=== PATIENT | female | born 1940 | race Caucasian/White ===

== ENCOUNTER 2017-02-22 10:13 | Day surgery (SDC) | payer BC ==
[~2017-02-22 10:13] MED LIST: Lactated Ringers 1,000 ML IV SCH; Propofol 200 MG/20 ML SDV ONE
--- NOTE | 2017-02-22 10:40 | PCM.PREANE ---
Preanesthetic Assessment - Anesthesia/Transfusion/Family Hx Anesthesia History: Prior Anesthesia Without Reaction Family History of Anesthesia Reaction: No Transfusion History: Prior Transfusion Without Reaction Intubation History: Unknown - Review of Systems General: No Symptoms Pulmonary: No Symptoms Cardiovascular: No Symptoms Gastrointestinal: Abdominal pain Neurological: No Symptoms Other: Reports: None - Physical Assessment O2 Sat by Pulse Oximetry: 95 Respiratory Rate: 16 Vital Signs: Last Vital Signs Temp 36.3 C 02/22/17 10:29 Pulse 64 02/22/17 10:29 Resp 16 02/22/17 10:29 BP 165/81 H 02/22/17 10:29 Pulse Ox 95 02/22/17 10:29 Height: 1.6 m Weight: 78.471 kg ASA Class: 3 Mental Status: Alert & Oriented x3 Airway Class: Mallampati = 2 Dentition: Reports: Dentures (upper and lower) Thyro-Mental Finger Breadths: 3 Mouth Opening Finger Breadths: 3 ROM/Head Extension: Limited/Partial Lungs: Clear to auscultation, Normal respiratory effort Cardiovascular: Regular Rate, Regular Rhythm - Allergies Allergies/Adverse Reactions: Allergies Allergy/AdvReac Type Severity Reaction Status Date / Time lisinopril Allergy Cough Verified 02/20/17 13:13 nitrofurantoin Allergy Rash Verified 02/20/17 13:13 [From Macrobid] pollen extracts Allergy watery eyes Verified 02/20/17 13:13 - Blood Blood Available: No - Anesthesia Plan Pre-Op Medication Ordered: None - Acknowledgements Anesthesia Type Planned: MAC Pt an Appropriate Candidate for the Planned Anesthesia: Yes Alternatives and Risks of Anesthesia Discussed w Pt/Guardian: Yes Pt/Guardian Understands and Agrees with Anesthesia Plan: Yes PreAnesthesia Questionnaire HEENT History: Reports: Other (See Below) Other HEENT History: wears glasses, has top and bottom denture Cardiovascular History: Reports: High Cholesterol, Hypertension Respiratory History: Reports: Other (See Below) Other Respiratory History: H&P states COPD, pt denies Gastrointestinal History: Reports: Gastritis, GERD, Hiatal Hernia Genitourinary History: Reports: None Musculoskeletal History: Reports: Fracture, Osteoarthritis Other Musculoskeletal History: hx fx leg and ankle Endocrine/Metabolic History: Reports: Diabetes, Type II, Obesity/BMI 30+ Hematologic History: Reports: Blood Transfusion(s) Oncologic (Cancer) History: Reports: Breast - Past Surgical History Head Surgeries/Procedures: Reports: None HEENT Surgical History: Reports: Cataract Surgery GI Surgical History: Reports: Appendectomy, Colonoscopy, EGD Female Surgical History: Reports: Breast Biopsy, Hysterectomy, Other (See Below) Other Female Surgeries/Procedures: bo mastectomy Musculoskeletal Surgical History: Reports: Knee Replacement Other Musculoskeletal Surgeries/Procedures:: hx bo knee replacement and bo knee replacement revision - SUBSTANCE USE Smoking Status *Q: Former Smoker Tobacco Use Within Last Twelve Months: No Recreational Drug Use History: No - HOME MEDS Home Medications: Home Meds Aspirin [[place] Aspirin] 81 mg PO DAILY 02/20/17 [History] Diltiazem HCl [Dilt-Xr] 240 mg PO DAILY 02/20/17 [History] Hydrochlorothiazide 25 mg PO DAILY 02/20/17 [History] Hydrocodone/Acetaminophen [Hydrocodon-Acetaminophn 10-325] 1 tab PO ASDIRECTED PRN 02/20/17 [History] Liraglutide [Victoza] 1.2 mg SUBCUT DAILY 02/20/17 [History] Losartan/Hydrochlorothiazide [Losartan-HCTZ 100-25 MG] 1 tab PO DAILY 02/20/17 [ History] Simvastatin [Zocor] 0.5 tab PO DAILY 02/20/17 [History] - CURRENT (IN HOUSE) MEDS Current Meds: Current Medications Lactated Ringer's (Ringers, Lactated) 1,000 mls @ 125 mls/hr IV ASDIRECTED [facility] Last Admin: 02/22/17 10:29 Dose: 125 mls/hr Discontinued Medications Propofol (Diprivan 20 Ml) Confirm Administered Dose 200 mg .ROUTE .STK-MED ONE Stop: 02/22/17 06:54
--- NOTE | 2017-02-22 11:22 | PCM.OPNOTE ---
- General Post-Op/Procedure Note Date of Surgery/Procedure: 02/22/17 Operative Procedure(s): Esophagogastroduodenoscopy with biopsy Pre Op Diagnosis: Epigastric pain with progressive heartburn Post-Op Diagnosis: Duodenitis. Acute gastritis. Hiatal hernia with mild esophagitis. Anesthesia Technique: MAC (ASA III) Primary Surgeon: Mariano Perry Condition: Good Free Text/Narrative:: Dictation [id number]
[2017-02-22] MEDS ORDERED: Lactated Ringers 1,000 ML IV SCH (11:30)
[2017-02-22 12:25] VITALS: BP 167/77
--- NOTE | 2017-02-22 17:54 | OR ---
SURGEON: Mariano Perry M.D. DATE OF PROCEDURE: 02/22/2017 OPERATION PERFORMED: Esophagogastroduodenoscopy with biopsy. ANESTHESIA: MAC. ASA CLASSIFICATION: III. PREOPERATIVE DIAGNOSIS: Epigastric pain with progressive heartburn. POSTOPERATIVE DIAGNOSES: [id number] gastritis and hiatal hernia with mild esophagitis. DESCRIPTION OF PROCEDURE: The patient was taken to the endoscopy room and positioned on the endoscopy table in the supine position. Time-out was called for appropriate identification of the patient and procedure. Monitored anesthesia care was provided. The bite block was placed between the patient's teeth. The gastroscope was inserted through the mouth and advanced without difficulty through the esophagus and stomach into the duodenum where examination was carried out in a retrograde fashion. The duodenum shows mild duodenitis. Duodenal biopsies were obtained. The gastroscope was withdrawn into the stomach, which does show a much more acute gastritis. Antral biopsies were obtained to look for the presence of Helicobacter pylori. The gastroscope was retroflexed to visualize the proximal stomach. No ulcerations or tumors were noted. The patient does have a hiatal hernia that can be seen both from above and below. The gastroscope was then straightened, the stomach aspirated, and the scope slowly withdrawn. The GE junction was well defined shows minimal inflammatory changes. The patient does have a small hiatal hernia. The esophagus itself demonstrates good contractility. No mid or proximal lesions were identified. The vocal cords were visualized as the scope was withdrawn and noted to move symmetrically. The gastroscope was then removed with the patient having tolerated the procedure well. She was taken to recovery room in stable condition. KISHOR / LAYTON /[id number]
== END 2017-02-22 12:23 | disposition home or self-care (01) ==
LOC: MW.SDS 10:13
PROVIDERS: ATTEND Surgery
DX: K29.50 Unspecified chronic gastritis without bleeding (principal); K44.9 Diaphragmatic hernia without obstruction or gangrene; I65.29 Occlusion and stenosis of unspecified carotid artery; J44.9 Chronic obstructive pulmonary disease, unspecified; I10 Essential (primary) hypertension; E78.00 Pure hypercholesterolemia, unspecified; E66.9 Obesity, unspecified; M19.90 Unspecified osteoarthritis, unspecified site; E11.9 Type 2 diabetes mellitus without complications; K21.9 Gastro-esophageal reflux disease without esophagitis; Z85.3 Personal history of malignant neoplasm of breast; Z87.891 Personal history of nicotine dependence; Z88.1 Allergy status to other antibiotic agents; Z88.8 Allergy status to other drugs, medicaments and biological substances; Z91.048 Other nonmedicinal substance allergy status; Z79.82 Long term (current) use of aspirin; Z79.4 Long term (current) use of insulin; Z79.899 Other long term (current) drug therapy; Z98.1 Arthrodesis status; Z98.49 Cataract extraction status, unspecified eye; Z96.653 Presence of artificial knee joint, bilateral; Z90.13 Acquired absence of bilateral breasts and nipples; Z90.49 Acquired absence of other specified parts of digestive tract; Z90.710 Acquired absence of both cervix and uterus; Z90.79 Acquired absence of other genital organ(s); Z98.890 Other specified postprocedural states; Z68.30 Body mass index [BMI] 30.0-30.9, adult
CPT/HCPCS: 43239; 82962; 88305; 88312; J7120; 00740; J2704

== ENCOUNTER 2019-03-20 09:25 | Day surgery (SDC) | payer BC, MEDICARE ==
[~2019-03-20 09:25] MED LIST changes: -Propofol 200 MG/20 ML SDV ONE
--- NOTE | 2019-03-20 10:20 | PCM.PREANE ---
Preanesthetic Assessment - Anesthesia/Transfusion/Family Hx Anesthesia History: Prior Anesthesia Without Reaction Family History of Anesthesia Reaction: No Transfusion History: Prior Transfusion Without Reaction Intubation History: Unknown - Review of Systems General: No Symptoms Pulmonary: No Symptoms Cardiovascular: No Symptoms Neurological: No Symptoms Other: Reports: None - Physical Assessment NPO Status Date: 03/19/19 O2 Sat by Pulse Oximetry: 96 Respiratory Rate: 16 Vital Signs: Last Vital Signs Temp 97.5 F 03/20/19 09:45 Pulse 56 L 03/20/19 09:45 Resp 16 03/20/19 09:45 BP 154/67 H 03/20/19 09:45 Pulse Ox 96 03/20/19 09:45 Height: 5 ft 3 in Weight: 76.204 kg ASA Class: 3 Mental Status: Alert & Oriented x3 Airway Class: Mallampati = 2 Dentition: Reports: Edentulous ROM/Head Extension: Full Lungs: Clear to Auscultation, Normal Respiratory Effort Cardiovascular: Regular Rate, Regular Rhythm - Allergies Allergies/Adverse Reactions: Allergies Allergy/AdvReac Type Severity Reaction Status Date / Time lisinopril Allergy Cough Verified 03/17/19 15:29 nitrofurantoin Allergy Rash Verified 03/17/19 15:29 [From Macrobid] pollen extracts Allergy watery eyes Verified 03/17/19 15:29 - Blood Blood Available: No - Anesthesia Plan Pre-Op Medication Ordered: None - Acknowledgements Anesthesia Type Planned: General Anesthesia Pt an Appropriate Candidate for the Planned Anesthesia: Yes Alternatives and Risks of Anesthesia Discussed w Pt/Guardian: Yes Pt/Guardian Understands and Agrees with Anesthesia Plan: Yes Additional Comments: anes prob list: copd, gerd, htn, dm2 PLAN: tiva PreAnesthesia Questionnaire HEENT History: Reports: Cataract Other HEENT History: wears glasses, has upper and lower dentures Cardiovascular History: Reports: Arrhythmia, High Cholesterol, Hypertension, Other (See Below) Other Cardiovascular History: hx of PAC's per chart, 50% stenosis in left Carotid Artery per chart Respiratory History: Reports: COPD Other Respiratory History: was told she had COPD because she smoked in the past - no symptoms and no medication Gastrointestinal History: Reports: GERD, Hiatal Hernia Genitourinary History: Reports: None Musculoskeletal History: Reports: Osteoarthritis Other Musculoskeletal History: hx fx leg and ankle Neurological History: Reports: Concussion Endocrine/Metabolic History: Reports: Diabetes, Type II, Hypothyroidism, Vitamin D Deficiency Hematologic History: Reports: Blood Transfusion(s) Oncologic (Cancer) History: Reports: Breast Dermatologic History: Reports: Other (See Below) 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 - Past Surgical History Head Surgeries/Procedures: Reports: None HEENT Surgical History: Reports: Cataract Surgery, Laser Surgery Other HEENT Surgeries/Procedures: had laser done for "pressure in eyes" GI Surgical History: Reports: Appendectomy, Colon, Colonoscopy, EGD Other GI Surgeries/Procedures: hx of partial Colectomy because of ruptured appendix as a child Female Surgical History: Reports: Hysterectomy, Mastectomy, Salpingo- Oophorectomy Other Female Surgeries/Procedures: right Modified Radical mastectomy, left Simple Mastectomy Musculoskeletal Surgical History: Reports: Knee Replacement, ORIF Other Musculoskeletal Surgeries/Procedures:: Bilateral TKA (revision of right knee x2), ORIF left ankle - has screws - SUBSTANCE USE Smoking Status *Q: Former Smoker Tobacco Use Within Last Twelve Months: No Recreational Drug Use History: No - HOME MEDS Home Medications: Home Meds Aspirin [[place] Aspirin EC] 81 mg PO DAILY 02/20/17 [History] Diltiazem HCl [Dilt-Xr] 240 mg PO DAILY 02/20/17 [History] Liraglutide [Victoza] 1.2 mg SUBCUT DAILY 02/20/17 [History] Losartan/Hydrochlorothiazide [Losartan-HCTZ 100-25 MG] 1 tab PO DAILY 02/20/17 [ History] Simvastatin [Zocor] 40 mg PO BEDTIME 02/20/17 [History] Clobetasol [Clobetasol Propionate 0.05% Cream] 1 applic TOP ASDIRECTED 03/17/19 [History] Doxazosin Mesylate [Cardura] 2 mg PO BEDTIME 03/17/19 [History] Ergocalciferol (Vitamin D2) [Drisdol] 50,000 unit PO WEEKLY 03/17/19 [History] Levothyroxine Sodium 88 mcg PO QAM 03/17/19 [History] Potassium Chloride 10 meq PO DAILY 03/17/19 [History] metFORMIN HCl [Metformin HCl ER] 500 mg PO ACDINNER 03/17/19 [History] - CURRENT (IN HOUSE) MEDS Current Meds: Current Medications Lactated Ringer's (Ringers, Lactated) 1,000 mls @ 125 mls/hr IV ASDIRECTED [facility] Last Admin: 03/20/19 09:55 Dose: 125 mls/hr
[2019-03-20] MEDS ORDERED: Propofol 200 MG/20 ML SDV ONE (10:25)
[2019-03-20] MEDS ORDERED: Lactated Ringers 1,000 ML IV SCH (11:15)
--- NOTE | 2019-03-20 11:17 | PCM.OPNOTE ---
- General Post-Op/Procedure Note Date of Surgery/Procedure: 03/20/19 Operative Procedure(s): Esophagogastroduodenoscopy with gastric and esophageal biopsies Pre Op Diagnosis: Abdominal pain with progressive gastroesophageal reflux disease. Nausea and vomiting. Post-Op Diagnosis: Acute and chronic gastritis. Esophagitis. Anesthesia Technique: MAC (ASA III) Primary Surgeon: Mariano Perry Condition: Good Free Text/Narrative:: DICTATION [id number] CPT CODE 44210
--- NOTE | 2019-03-20 11:34 | PCM.POSTAN ---
POST ANESTHESIA ASSESSMENT - MENTAL STATUS Mental Status: Alert, Oriented - RESPIRATORY Respiratory Status: Respiratory Rate WNL, Airway Patent, O2 Saturation Stable - CARDIOVASCULAR CV Status: Pulse Rate WNL, Blood Pressure Stable - GASTROINTESTINAL GI Status: No Symptoms - POST OP HYDRATION Hydration Status: Adequate & Stable
--- NOTE | 2019-03-20 11:43 | PCM48HPAN ---
Post Anesthesia Note - EVALUATION WITHIN 48HRS OF ANESTHETIC Vital Signs in Normal Range: Yes Patient Participated in Evaluation: Yes Respiratory Function Stable: Yes Airway Patent: Yes Cardiovascular Function Stable: Yes Hydration Status Stable: Yes Pain Control Satisfactory: Yes Nausea and Vomiting Control Satisfactory: Yes Mental Status Recovered: Yes Resp Rate: 17
[2019-03-20 11:47] VITALS: BP 188/79
--- NOTE | 2019-03-20 11:56 | OR ---
SURGEON: Mariano Perry M.D. DATE OF PROCEDURE: 03/20/2019 OPERATION PERFORMED: Esophagogastroduodenoscopy with biopsy. PRIMARY SURGEON: Mariano Perry M.D. ANESTHESIA: MAC. ASA CLASSIFICATION: III. PREOPERATIVE DIAGNOSES: 1. Epigastric pain. 2. Persistent nausea and vomiting. 3. Chronic gastroesophageal reflux disease that is progressive. POSTOPERATIVE DIAGNOSES: 1. Acute gastritis. 2. Distal esophagitis. DESCRIPTION OF PROCEDURE: The patient was taken to the endoscopy room and positioned on the endoscopy table in the supine position. Time-out was called for appropriate identification of the patient and procedure. Monitored anesthesia care was provided. The bite block was placed between the patient's teeth. The gastroscope was inserted through the bite block and advanced without difficulty through the esophagus and stomach into the duodenum where examination was now carried out in a retrograde fashion. The duodenum shows no acute inflammatory changes or ulcerations. The stomach does show [id number] acute gastritis. Antral biopsies were obtained to look for the presence of Helicobacter pylori. The gastroscope was retroflexed to visualize the proximal stomach. No proximal lesions were identified. No polyps were encountered. The gastroscope was then straightened, the stomach aspirated, and the scope slowly removed. The patient does have a distal esophagitis and separate biopsies of the esophagus were obtained. The remainder of the mid and proximal esophagus showed no tumors, polyps, or inflammatory changes. The vocal cords were briefly visualized as the scope was withdrawn and noted to move symmetrically. The gastroscope was then removed with the patient having tolerated the procedure well. She was taken to recovery room in stable condition. KISHOR / LAYTON /[id number]
== END 2019-03-20 12:01 | disposition home or self-care (01) ==
LOC: MW.SDS 09:25
PROVIDERS: ATTEND Surgery
DX: K29.50 Unspecified chronic gastritis without bleeding (principal); K21.0 Gastro-esophageal reflux disease with esophagitis; I10 Essential (primary) hypertension; I65.22 Occlusion and stenosis of left carotid artery; E11.9 Type 2 diabetes mellitus without complications; E78.00 Pure hypercholesterolemia, unspecified; E03.9 Hypothyroidism, unspecified; J44.9 Chronic obstructive pulmonary disease, unspecified; M47.812 Spondylosis without myelopathy or radiculopathy, cervical region; Z88.1 Allergy status to other antibiotic agents; Z88.8 Allergy status to other drugs, medicaments and biological substances; Z91.048 Other nonmedicinal substance allergy status; Z87.891 Personal history of nicotine dependence; Z79.82 Long term (current) use of aspirin; Z79.84 Long term (current) use of oral hypoglycemic drugs; Z79.899 Other long term (current) drug therapy
CPT/HCPCS: 82962; J2704; J7120

== ENCOUNTER 2020-05-17 20:51 | Emergency (ER) | payer BC ==
--- NOTE | 2020-05-17 20:55 | EDM.PDOC ---
ED HPI GENERAL MEDICAL PROBLEM - General Chief Complaint: Back Pain or Injury Stated Complaint: sciatica pain Time Seen by Provider: 05/17/20 20:53 Source of Information: Reports: Patient - History of Present Illness INITIAL COMMENTS - FREE TEXT/NARRATIVE: 80-year-old female with history of sciatica presents with low back pain for 5 days. She was lifting heavy furniture and started having pain to her low back 5 days ago. Pain is described as sharp, moderate, intermittent, localized to the left lumbar paraspinal region, and radiates to the left lower extremity. Exacerbated with movement and palpation. She tried taking ibuprofen 400 mg with no relief. Patient denies fever, chills, headache, chest pain, shortness of breath, abdominal pain, focal numbness or weakness, urinary or fecal incontin ence. ROS: A 10-point review of systems, other than pertinent positives and negatives as stated per HPI, is otherwise negative Past medical history: No additional pertinent history Past Surgical history: No additional pertinent history Social history: No additional pertinent history Family history: No additional pertinent history PHYSICAL EXAM General: AOx4, GCS = 15, moderate distress HEENT: dry mucous membrane Neck: supple, no meningismus, no Kernig or Brudzinski Cardiac: S1S2 RRR, symmetrical bounding DP pulse +2 bilaterally. Respiratory: CTAB, no crackles or rales, no wheezing Abdomen: Soft, nontender, no rebound or guarding, nondistended, no pulsatile mass. Back: nontender to C/T/L spine. reproducible ttp/spasm to left lumbar paraspinal muscles. left gluteus ttp. Musculoskeletal: NVI distally, no deformity. Positive straight leg raise. No tenderness to posterior calf or thigh bilaterally. Neuro: No focal deficits, CN 2 - 12 WNL. Onset: Today lower back Pain Score (Numeric/FACES): 10 - Related Data Allergies Allergy/AdvReac Type Severity Reaction Status Date / Time lisinopril Allergy Cough Verified 05/17/20 21:10 nitrofurantoin Allergy Rash Verified 05/17/20 21:10 [From Macrobid] pollen extracts Allergy watery eyes Verified 05/17/20 21:10 Home Meds: Home Meds Aspirin [[place] Aspirin EC] 81 mg PO DAILY 02/20/17 [History] Liraglutide [Victoza] 1.2 mg SUBCUT DAILY 02/20/17 [History] Losartan/Hydrochlorothiazide [Losartan-HCTZ 100-25 MG] 1 tab PO DAILY 02/20/17 [History] Simvastatin [Zocor] 40 mg PO BEDTIME 02/20/17 [History] dilTIAZem HCL [Dilt-Xr] 240 mg PO DAILY 02/20/17 [History] Clobetasol [Clobetasol Propionate 0.05% Cream] 1 applic TOP ASDIRECTED 03/17/19 [History] Doxazosin Mesylate [Cardura] 2 mg PO BEDTIME 03/17/19 [History] Ergocalciferol (Vitamin D2) [Drisdol] 50,000 unit PO WEEKLY 03/17/19 [History] Levothyroxine Sodium 88 mcg PO QAM 03/17/19 [History] Potassium Chloride 10 meq PO DAILY 03/17/19 [History] metFORMIN HCl [Metformin HCl ER] 500 mg PO ACDINNER 03/17/19 [History] Chlorzoxazone 500 mg PO BID #10 tablet 05/17/20 [Rx] Naproxen [EC-Naproxen] 500 mg PO BID #10 tablet.dr 05/17/20 [Rx] Past Medical History HEENT History: Reports: Cataract Other HEENT History: wears glasses, has upper and lower dentures Cardiovascular History: Reports: Arrhythmia, High Cholesterol, Hypertension, Other (See Below) Other Cardiovascular History: hx of PAC's per chart, 50% stenosis in left Carotid Artery per chart Respiratory History: Reports: COPD Other Respiratory History: was told she had COPD because she smoked in the past- no symptoms and no medication Gastrointestinal History: Reports: GERD, Hiatal Hernia Genitourinary History: Reports: None Musculoskeletal History: Reports: Osteoarthritis Other Musculoskeletal History: hx fx leg and ankle Neurological History: Reports: Concussion Endocrine/Metabolic History: Reports: Diabetes, Type II, Hypothyroidism, Vitamin D Deficiency Hematologic History: Reports: Blood Transfusion(s) Oncologic (Cancer) History: Reports: Breast Dermatologic History: Reports: Other (See Below) 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 - Past Surgical History Head Surgeries/Procedures: Reports: None HEENT Surgical History: Reports: Cataract Surgery, Laser Surgery Other HEENT Surgeries/Procedures: had laser done for "pressure in eyes" GI Surgical History: Reports: Appendectomy, Colon, Colonoscopy, EGD Other GI Surgeries/Procedures: hx of partial Colectomy because of ruptured appendix as a child Female Surgical History: Reports: Hysterectomy, Mastectomy, Salpingo-Oophorectomy Other Female Surgeries/Procedures: right Modified Radical mastectomy, left Simple Mastectomy Musculoskeletal Surgical History: Reports: Knee Replacement, ORIF Other Musculoskeletal Surgeries/Procedures:: Bilateral TKA (revision of right knee x2), ORIF left ankle - has screws ED ROS GENERAL - Review of Systems Review Of Systems: Comprehensive ROS is negative, except as noted in HPI. ED EXAM, GENERAL - Physical Exam Exam: See Below (see dictation) Course - Vital Signs Last Recorded V/S: Last Vital Signs Temp 99.3 F 05/17/20 21:11 Pulse 80 05/17/20 21:11 Resp 18 05/17/20 21:11 BP 194/73 H 05/17/20 21:11 Pulse Ox 95 05/17/20 21:11 - Orders/Labs/Meds Orders: Active Orders 24 hr Category Date Time Status Ketorolac [Toradol] Med 05/17/20 21:33 Once 30 mg IM ONETIME ONE - Re-Assessments/Exams Free Text/Narrative Re-Assessment/Exam: 05/17/20 21:38 After IM toradol treatments, she improved clinically and is currently stable for discharge. I performed a repeat exam and did not appreciate new abnormal findings. Patient exhibits normal vital signs. I advised the patient to return to the ER for reevaluation if symptoms worsened, including fever, worsening pain, or any other worrisome symptoms. I instructed the patient to follow up with their PCP within 2-3 days. MEDICAL DECISION MAKING: I reviewed the patients past medical records, lab and radiographic findings. I discussed the case with the patient. My differential diagnosis included: Low back strain, sciatica, piriformis syndrome. patient's back pain is suggestive of musculoskeletal strain. There are no complaints of urinary or fecal incontinence, focal numbness or weakness. There is no evidence of fever, IV drug use, recent back surgery, or immunocompromised state. I do not suspect caude equine syndrome or cord compression which would warrant further imaging. Departure - Departure Time of Disposition: 21:40 Disposition: Home, Self-Care 01 Condition: Good Clinical Impression: Sciatica, Low back strain - Discharge Information *PRESCRIPTION DRUG MONITORING PROGRAM REVIEWED*: Not Applicable *COPY OF PRESCRIPTION DRUG MONITORING REPORT IN PATIENT BLANCO: Not Applicable Prescriptions: Chlorzoxazone 500 mg PO BID #10 tablet Naproxen [EC-Naproxen] 500 mg PO BID #10 tablet. Instructions: Lumbosacral Strain, Sciatica, Back Injury Prevention, [id number] Referrals: Dejan Duff MD [Primary Care Provider] - 3 Days Forms: ED Department Discharge Additional Instructions: The need for follow-up, as well as the timing and circumstances, are variable depending upon the specifics of your emergency department visit. If you don't have a primary care physician on staff, we will provide you with a referral. We always advise you to contact your personal physician following an emergency department visit to inform them of the circumstance of the visit and for follow-up with them and/or the need for any referrals to a consulting specialist. The emergency department will also refer you to a specialist when appropriate. This referral assures that you have the opportunity for follow-up care with a specialist. All of these measure are taken in an effort to provide you with optimal care, which includes your follow-up. Under all circumstances we always encourage you to contact your private physician who remains a resource for coordinating your care. When calling for follow-up care, please make the office aware that this follow-up is from your recent emergency room visit. If for any reason you are refused follow-up, please contact the [facility] Emergency Department at and asked to speak to the emergency department charge nurse. Sepsis Event Note (ED) - Focused Exam Vital Signs: Vital Signs Temp Pulse Resp BP Pulse Ox 08/25/20 21:11 99.3 F 80 18 194/73 H 95 - My Orders Last 24 Hours: My Active Orders 05/17/20 21:33 Ketorolac [Toradol] 30 mg IM ONETIME ONE - Assessment/Plan Last 24 Hours: My Active Orders 05/17/20 21:33 Ketorolac [Toradol] 30 mg IM ONETIME ONE
[2020-05-17] MEDS ORDERED: Ketorolac 30 MG/ML SDV IM ONE (21:33)
[2020-05-17 22:37] VITALS: BP 158/64; PULSE 83
== END 2020-05-17 22:15 | disposition home or self-care (01) ==
LOC: MW.ED 20:51
DX: S39.012A Strain of muscle, fascia and tendon of lower back, initial encounter (principal); M54.32 Sciatica, left side; I10 Essential (primary) hypertension; J44.9 Chronic obstructive pulmonary disease, unspecified; M19.90 Unspecified osteoarthritis, unspecified site; E11.9 Type 2 diabetes mellitus without complications; E03.9 Hypothyroidism, unspecified; Z88.8 Allergy status to other drugs, medicaments and biological substances; Z91.048 Other nonmedicinal substance allergy status; Z79.82 Long term (current) use of aspirin; Z79.899 Other long term (current) drug therapy; X50.0XXA Overexertion from strenuous movement or load, initial encounter
CPT/HCPCS: 96372; 99283; J1885; 99282

== ENCOUNTER 2020-05-20 11:57 | Emergency (ER) | payer BC ==
--- NOTE | 2020-05-20 12:43 | EDM.PDOC ---
ED [facility] GENERAL MEDICAL PROBLEM - General Chief Complaint: General Stated Complaint: OD Time Seen by Provider: 05/20/20 12:08 - History of Present Illness INITIAL COMMENTS - FREE TEXT/NARRATIVE: HISTORY AND PHYSICAL: History of present illness: This 80-year-old female with a past medical history of hypertension, chronic pain of the left lower extremity, and opioid dependence presents with altered mental status. She was found slumped over at home after using home narcotics. Patient states that she does not remember taking extra. She was quite obtunded and may have accidentally taken additional medications but does not think that is likely. She did not try and harm herself. She complains of chronic pain in her back and left leg. She reports that these are secondary to previous traumatic injuries. Review of systems: A 10-point review of systems, other than pertinent positives and negatives as stated per HPI, is otherwise negative. Past medical history: As per history of present illness and as reviewed below otherwise noncontributory. Surgical history: As per history of present illness and as reviewed below otherwise noncontributory. Social history: No reported history of drug or alcohol abuse. Family history: As per history of present illness and as reviewed below otherwise noncontributory. Physical exam: VITAL SIGNS: Reviewed. GENERAL: Intermittently agitated and then somnolent. The pulse oximetry is reading low in the 80s. Unclear if this is secondary to the patient moving around and poor sensing or if this is actual hypoxemia. HEAD: No signs of head trauma. EYES: Pupils are equal. Extraocular motions intact. EARS: Hearing grossly intact. MOUTH: Oropharynx is normal. NECK: No adenopathy, no JVD. CHEST: Chest with clear breath sounds bilaterally. No wheezes, rales, or rhonchi. CARDIAC: Regular rate and rhythm. Normal S1 and S2, without murmurs, gallops, or rubs. VASCULAR: Peripheral pulses normal and equal in all extremities. ABDOMEN: Soft, without detectable tenderness. No sign of distention. No rebound or guarding, and no masses palpated. MUSCULOSKELETAL: Good range of motion of all major joints. Extremities without clubbing, cyanosis or edema. NEUROLOGIC EXAM: Alert and oriented x 3. No focal sensory or motor deficits. Speech normal. Follows commands. PSYCHIATRIC: Mood normal. SKIN: No rash or lesions. Initial Differential Diagnosis & Plan: The patient has altered mental status and I considered the following entities in the differential diagnosis: hypoglycemia, electrolyte imbalance, head trauma, intracranial bleed or mass, meningitis sepsis, transient ischemic attack or stroke, toxidrome/intoxication/medication effect, seizure or postictal state, hepatic encephalopathy, acid/base disturbance, hypercapnia. We will evaluate the patient for underlying metabolic problems. No evidence of meningitis or sepsis. No unilateral symptoms to suggest TIA or stroke. Suspect this is likely a toxidrome. Definitive disposition and diagnosis as appropriate pending reevaluation and review of above. back Pain Score (Numeric/FACES): 7 - Related Data Allergies Allergy/AdvReac Type Severity Reaction Status Date / Time lisinopril Allergy Cough Verified 05/20/20 12:46 nitrofurantoin Allergy Rash Verified 05/20/20 12:46 [From Macrobid] pollen extracts Allergy watery eyes Verified 05/20/20 12:46 Home Meds: Home Meds Aspirin [Iota Aspirin EC] 81 mg PO DAILY 02/20/17 [History] Liraglutide [Victoza] 1.2 mg SUBCUT DAILY 02/20/17 [History] Losartan/Hydrochlorothiazide [Losartan-HCTZ 100-25 MG] 1 tab PO DAILY 02/20/17 [History] Simvastatin [Zocor] 40 mg PO BEDTIME 02/20/17 [History] dilTIAZem HCL [Dilt-Xr] 240 mg PO DAILY 02/20/17 [History] Clobetasol [Clobetasol Propionate 0.05% Cream] 1 applic TOP ASDIRECTED 03/17/19 [History] Doxazosin Mesylate [Cardura] 2 mg PO BEDTIME 03/17/19 [History] Ergocalciferol (Vitamin D2) [Drisdol] 50,000 unit PO WEEKLY 03/17/19 [History] Levothyroxine Sodium 88 mcg PO QAM 03/17/19 [History] Potassium Chloride 10 meq PO DAILY 03/17/19 [History] metFORMIN HCl [Metformin HCl ER] 500 mg PO ACDINNER 03/17/19 [History] Chlorzoxazone 500 mg PO BID #10 tablet 05/17/20 [Rx] Naproxen [EC-Naproxen] 500 mg PO BID #10 tablet. 05/17/20 [Rx] Past Medical History HEENT History: Reports: Cataract Other HEENT History: wears glasses, has upper and lower dentures Cardiovascular History: Reports: Arrhythmia, High Cholesterol, Hypertension, Other (See Below) Other Cardiovascular History: hx of PAC's per chart, 50% stenosis in left Carotid Artery per chart Respiratory History: Reports: COPD Other Respiratory History: was told she had COPD because she smoked in the past- no symptoms and no medication Gastrointestinal History: Reports: GERD, Hiatal Hernia Genitourinary History: Reports: None Musculoskeletal History: Reports: Osteoarthritis Other Musculoskeletal History: hx fx leg and ankle Neurological History: Reports: Concussion Endocrine/Metabolic History: Reports: Diabetes, Type II, Hypothyroidism, Vitamin D Deficiency Hematologic History: Reports: Blood Transfusion(s) Oncologic (Cancer) History: Reports: Breast Dermatologic History: Reports: Other (See Below) 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 - Infectious Disease History Infectious Disease History: Reports: None - Past Surgical History Head Surgeries/Procedures: Reports: None HEENT Surgical History: Reports: Cataract Surgery, Laser Surgery Other HEENT Surgeries/Procedures: had laser done for "pressure in eyes" GI Surgical History: Reports: Appendectomy, Colon, Colonoscopy, EGD Other GI Surgeries/Procedures: hx of partial Colectomy because of ruptured appendix as a child Female Surgical History: Reports: Hysterectomy, Mastectomy, Salpingo- Oophorectomy Other Female Surgeries/Procedures: right Modified Radical mastectomy, left Simple Mastectomy Musculoskeletal Surgical History: Reports: Knee Replacement, ORIF Other Musculoskeletal Surgeries/Procedures:: Bilateral TKA (revision of right knee x2), ORIF left ankle - has screws Social & Family History - Family History Family Medical History: Noncontributory - Caffeine Use Caffeine Use: Reports: Soda ED ROS GENERAL - Review of Systems Review Of Systems: See Below (noted) ED EXAM, GENERAL - Physical Exam Exam: See Below (noted) ED GENERAL MEDICAL PROCEDURES - Additional/Other Procedure(s) Other (Free Text) Procedure(s): Procedure note: Arterial puncture Informed consent Normal David's test Cleaned and prepped in normal fashion Location: Left radial Complications: None EKG INTERPRETATION EKG Interpretation Comments: 12 lead EKG interpretation Obtained: May 20, 2020 at 12:04 PM Rhythm: Sinus Rate: 97 [place]: Normal Intervals: Normal ST/T Segments: Diffuse ST T changes. Interpretation: Sinus rhythm with diffuse ST-T changes Course - Vital Signs Text/Narrative:: Patient is found to have acute renal failure with azotemia. There is a mild leukocytosis this is likely secondary to demargination. Mild anemia. The patient does have a metabolic acidosis with slightly low bicarb and slight elevation of the anion gap. Given all these findings she will benefit from admission, IV hydration, and continuous monitoring. She will need her doses of her medications changed as an outpatient because there is significant amount of renal clearance with her current narcotic. My diagnostic impression: 1. Acute kidney injury 2. Azotemia 3. Leukocytosis 4. Anemia 5. Therapeutic misadventure with oral narcotic secondary to chronic pain Plan is to admit to the hospital service for IV hydration and reevaluation. Last Recorded V/S: Last Vital Signs Temp 96.8 F L 05/20/20 12:00 Pulse 92 05/20/20 12:00 Resp 20 05/20/20 12:00 BP 118/42 L 05/20/20 12:00 Pulse Ox 88 L 05/20/20 12:00 - Orders/Labs/Meds Orders: Active Orders 24 hr Category Date Time Status EKG Documentation Completion [RC] STAT Care 05/20/20 12:08 Active DRUG SCREEN, URINE [URCHEM] Stat Lab 05/20/20 12:08 Ordered UA W/MICROSCOPIC [URIN] Stat Lab 05/20/20 12:08 Ordered Labs: Laboratory Tests 05/20/20 05/20/20 05/20/20 Range/Units 12:03 12:24 12:24 WBC 13.03 H (4.0-11.0) K/uL RBC 3.58 L (4.30-5.90) M/uL Hgb 10.1 L (12.0-16.0) g/dL Hct 32.0 L (36.0-46.0) % MCV 89.4 (80.0-98.0) fL MCH 28.2 (27.0-32.0) pg MCHC 31.6 (31.0-37.0) g/dL RDW Std Deviation 47.2 (28.0-62.0) fl RDW Coeff of Batool 14 (11.0-15.0) % Plt Count 325 (150-400) K/uL MPV 10.30 (7.40-12.00) fL Neut % (Auto) 87.3 H (48.0-80.0) % Lymph % (Auto) 6.7 L (16.0-40.0) % Gray % (Auto) 5.8 (0.0-15.0) % Eos % (Auto) 0.0 (0.0-7.0) % Baso % (Auto) 0.2 (0.0-1.5) % Neut # (Auto) 11.4 H (1.4-5.7) K/uL Lymph # (Auto) 0.9 (0.6-2.4) K/uL Gray # (Auto) 0.8 (0.0-0.8) K/uL Eos # (Auto) 0.0 (0.0-0.7) K/uL Baso # (Auto) 0.0 (0.0-0.1) K/uL Nucleated RBC % 0.0 /100WBC Nucleated RBCs # 0 K/uL ABG pH 7.327 L (7.35-7.45) ABG pCO2 42 (35-45) mmHG ABG pO2 74 L (75-100) mmHG ABG HCO3 22 (22-26) mEq/L ABG Total CO2 20.8 ABG Base Excess -3.7 L (-2.0-2.0) Sodium 137 (136-145) mmol/L Potassium 4.5 (3.5-5.1) mmol/L Chloride 100 (98-107) mmol/L Carbon Dioxide 26.6 (21.0-32.0) mmol/L BUN 58 H (7.0-18.0) mg/dL Creatinine 2.6 H (0.6-1.0) mg/dL Est Cr Clr Drug Dosing TNP Estimated GFR (MDRD) 17.6 ml/min Glucose 227 H (74-106) mg/dL Calcium 9.1 (8.5-10.1) mg/dL Magnesium 1.7 L (1.8-2.4) mg/dL Total Bilirubin 0.2 (0.2-1.0) mg/dL AST 92 H (15-37) IU/L ALT 41 (14-63) IU/L Alkaline Phosphatase 78 (46-116) U/L Total Protein 7.2 (6.4-8.2) g/dL Albumin 3.0 L (3.4-5.0) g/dL Globulin 4.2 H (2.6-4.0) g/dL Albumin/Globulin Ratio 0.7 L (0.9-1.6) TSH 3rd Generation 0.91 (0.36-3.74) uIU/mL Salicylates 1.8 (0-20) mg/dL Acetaminophen <2.0 ug/mL Ethyl Alcohol < 3.0 mg/dL Departure - Departure Time of Disposition: 13:40 Disposition: Admitted As Inpatient 64 Clinical Impression: Acute kidney failure, Azotemia, Anemia, Leukocytosis - Discharge Information Referrals: PCP,None [Primary Care Provider] - Forms: ED Department Discharge Sepsis Event Note (ED) - Focused Exam Vital Signs: Vital Signs Temp Pulse Resp BP Pulse Ox 05/20/20 12:00 96.8 F L 92 20 118/42 L 88 L - My Orders Last 24 Hours: My Active Orders 05/20/20 12:08 EKG Documentation Completion [RC] STAT DRUG SCREEN, URINE [URCHEM] Stat UA W/MICROSCOPIC [URIN] Stat - Assessment/Plan Last 24 Hours: My Active Orders 05/20/20 12:08 EKG Documentation Completion [RC] STAT DRUG SCREEN, URINE [URCHEM] Stat UA W/MICROSCOPIC [URIN] Stat
[2020-05-20 13:04] LABS: ACETAMINOPHEN <2.0 ug/mL; BLOOD UREA NITROGEN,BUN 58 mg/dL (7.0-18.0); CARBON DIOXIDE,CO2 26.6 mmol/L (21.0-32.0); CHLORIDE,CL 100 mmol/L (98-107); GLUCOSE RANDOM 227 mg/dL (74-106); POTASSIUM,K 4.5 mmol/L (3.5-5.1); SODIUM,NA 137 mmol/L (136-145)
--- NOTE | 2020-05-20 13:24 | CR ---
Chest: AP view of the chest was obtained. Comparison: Prior chest x-ray of 08/20/14. Scarring is noted within the left midlung. Heart size is felt to be slightly enlarged. Tortuous thoracic aorta is seen. Lungs show no acute parenchymal change. Bony structures are grossly intact. Impression: 1. Heart size is felt to be slightly enlarged. 2. Other findings as noted above. Nothing acute is otherwise seen. Diagnostic code #2 This report was dictated in MDT
[2020-05-20] MEDS ORDERED: Lactated Ringers 1,000 ML IV ONE (13:41)
--- NOTE | 2020-05-20 15:09 | US ---
Renal ultrasound: Multiple real-time images of the kidneys were obtained. Comparison: No previous renal imaging is available. Kidneys showed no hydronephrosis or mass. Cortical thickness is preserved. Right renal length is 10.0 cm and left renal length is 9.8 cm. Impression: 1. No abnormality is appreciated on renal ultrasound study. Diagnostic code #1 This report was dictated in MDT
--- NOTE | 2020-05-20 15:17 | CT ---
CT abdomen and pelvis Technique: Multiple axial sections were obtained from above the dome of the diaphragm inferiorly through the pubic symphysis. Intravenous and oral contrast not utilized. Comparison: No prior abdominal imaging other than recent renal ultrasound performed earlier the same day (2:12 PM). Findings: Visualized lung bases shows probable fibrosis and scarring within the bases. Liver contains no focal abnormality. Spleen appears within normal limits. Adrenal glands show no nodule. Pancreas shows no abnormality. Gallbladder contains no calcified gallstones. Kidneys show small nonobstructing calculi with no hydronephrosis. No ureteral dilatation or ureteral stone is seen. Aorta shows atherosclerotic calcification which continues into the iliac vessels. No retroperitoneal adenopathy or mesenteric abnormalities are seen. No pelvic mass or adenopathy is seen. No free fluid or inflammatory change is seen. Appendix not visualized. Slight increased stool is seen throughout the colon. Bone window settings were reviewed which show slight degenerative change within the spine. Impression: 1. Small nonobstructing calculi within both kidneys. No ureteral dilatation or ureteral stone is seen. 2. Slight increased density within both lung bases most likely representing a combination of fibrosis and scarring. 3. Mild increased stool is seen throughout the colon. 4. Nothing acute is otherwise appreciated on noncontrast CT study of the abdomen and pelvis. Diagnostic code #2 This report was dictated in MDT
[2020-05-20] MEDS ORDERED: Nitroglycerin 2% Oint 1 GM UD Packet TOP ONE (18:17)
[2020-05-20] MEDS ORDERED: Aspirin 81 MG Tab.Chew PO ONE (18:17)
[2020-05-20] MEDS ORDERED: Heparin Sodium 5,000 Units/ML Vial IVPUSH ONE (18:19)
[2020-05-20] MEDS ORDERED: Heparin Sod,Pork In 0.45% Nacl 25,000 UNIT/500 ML IV.SOLN IV SCH (18:30)
--- NOTE | 2020-05-20 18:49 | PCM.SN.2 ---
<Saud Hackett - Last Filed: 05/20/20 18:42> - Free Text/Narrative Note: Patient initially accepted to medicine service; case discussed with ED provider and troponin ordered for ACS r/o ; ; provider agreed this may be a potential transfer if elevated and agreed to hold pt. in ED until concerns for ACS were diminished. however, initial troponin elevated w. subsequent troponin increased even more at 3 hour guille; patient was transferred to higher level of care from ED for concerns for NSTEMI <Ronit Bernal - Last Filed: 05/27/20 12:59> - Free Text/Narrative Note: I have seen and evaluated the patient and agree with the residents note unless specified in my note
--- NOTE | 2020-05-20 18:53 | PCM.SN.2 ---
- Free Text/Narrative Note: We had determined we wanted to admit the patient to watch her longer to determine the nature of her acute altered mental status and syncope. The patient had a troponin ordered. The initial troponin resulted back as elevated at 0.7. After discussion with the admitting team we decided to hold the patient in the emergency department and order a repeat troponin. It was elevated at 1.1. Given these findings her presentation is consistent with a non-ST segment elevation [place]. Repeat EKG was performed. 12 lead EKG interpretation Obtained: May 20, 2020 at 1828 hrs. Rhythm: Sinus Rate: 89 [place]: Normal Intervals: Normal ST/T Segments: Newly developing ST depressions in leads V4, V5 and V6. No clear evidence of ST segment elevations. Some wavy baseline's limiting interpretation. Patient will not sit still per the report of the tach. Interpretation: Sinus rhythm with newly developing ST depressions in leads V4 through V6 consistent with dynamic EKG changes. The patient required transfer to higher level of care given these findings as we do not have cardiology coverage. We started by calling [facility] At 1824 hrs. they told us they have no available beds. We called additional hospitals over the next 45 minutes and finally found an accepting hospital at [facility]. I spoke to Dr. Cruz of cardiology and he recommended heparinization and heparin drip. I spoke to Dr. LINK of internal medicine who is accepted the patient. Critical Care Note: The patient presented in critical status due to acute non-ST segment elevation [place] requiring heparinization The patient required rapid exam, decision making, and frequent re-evaluations during their time in the Emergency Department. Total Critical Care time exclusive of all other billable procedure time provided by myself 1 hour 30 minutes My diagnostic impression: 1. Syncope 2. Non-ST segment elevation [place] 3. Opioid dependence 4. Acute renal failure with azotemia 5. Leukocytosis
[2020-05-20 20:57] VITALS: BP 130/68; PULSE 80
== END 2020-05-20 19:46 | disposition home or self-care (01) ==
LOC: MW.ED 11:57 → UNDOADMOB 14:57 → MW.MS 14:57 → UNDODISOB 19:46 → MW.ED 19:46
DX: I21.4 Non-ST elevation (NSTEMI) myocardial infarction (principal); F11.20 Opioid dependence, uncomplicated; N17.9 Acute kidney failure, unspecified; R79.89 Other specified abnormal findings of blood chemistry; D72.829 Elevated white blood cell count, unspecified; I10 Essential (primary) hypertension; D64.9 Anemia, unspecified; G89.29 Other chronic pain; E78.00 Pure hypercholesterolemia, unspecified; J44.9 Chronic obstructive pulmonary disease, unspecified; E11.9 Type 2 diabetes mellitus without complications; E03.9 Hypothyroidism, unspecified; Z20.828 Contact with and (suspected) exposure to other viral communicable diseases; Z79.890 Hormone replacement therapy; Z88.8 Allergy status to other drugs, medicaments and biological substances; Z88.1 Allergy status to other antibiotic agents; Z79.82 Long term (current) use of aspirin; Z79.899 Other long term (current) drug therapy; Z79.84 Long term (current) use of oral hypoglycemic drugs
CPT/HCPCS: 36415; 36600; 71045; 74176; 76775; 80053; 80305; 80307; 81001; 82436; 82803; 83735; 83930; 83935; 84133; 84300; 84443; 84484; 85025; 85730; 87635; 93005; 96361; 96374; 99285; A9270; J1644; J7120; 99284; U0002

== ENCOUNTER 2020-06-08 12:03 | Inpatient (IN) | payer BC, OTHER ==
[2020-06-08] MEDS ORDERED: Sodium Chloride 0.9% 1,000 ML IV ONE (12:28)
[2020-06-08] MEDS ORDERED: Sodium Chloride 0.9% 2.5 ML Syringe FLUSH PRN (12:28)
[2020-06-08] MEDS ORDERED: Sodium Chloride 0.9% 10 ML Syringe FLUSH PRN (12:28)
--- NOTE | 2020-06-08 12:39 | EDM.PDOC ---
ED HPI GENERAL MEDICAL PROBLEM - General Chief Complaint: Respiratory Problem Stated Complaint: TROUBLE BREATHING Time Seen by Provider: 06/08/20 12:18 Source of Information: Reports: Patient History Limitations: Reports: No Limitations - History of Present Illness INITIAL COMMENTS - FREE TEXT/NARRATIVE: HISTORY AND PHYSICAL: History of present illness: Patient is an 80-year-old female who presents to the emergency room with complaints of shortness of breath. She reports she was in the emergency room on 05/20/2020 for initial complaint of chronic back pain. She states "they did a bunch of tests and decided I had a heart attack". At that time she was transferred to [facility] ([facility] was full). She states she was discharged home and was informed she needed home oxygen and to follow-up with her primary care provider. After being discharged she resumed her normal routine and failed to follow-up. Since being discharged she has progressively become more short of breath and states "I do not know where the hell to get this oxygen". Upon arrival her oxygen saturation is 66% on room air and her lips appear dusky. Immediately she was placed on 4 L per nasal cannula and is now 84% on room air and color has improved. Nursing staff/provider will continue to adjust oxygen as needed and monitor. Patient denies any fever, chills, headache, change in vision, syncope or near syncope. Denies any chest pain, back pain or cough. Denies any abdominal pain, nausea, vomiting, diarrhea, constipation or dysuria. Has not noted any blood in urine or stool. Patient has been eating and drinking appropriately. Past medical history of COPD, hypertension, chronic pain with opioid dependence, hypothyroidism, type 2 diabetes and arrhythmia. Primary care provider is Dr. Duff. She does live at home with her significant other and is able to take care of herself. Review of systems: As per history of present illness and below otherwise all systems reviewed and negative. Past medical history: As per history of present illness and as reviewed below otherwise noncontributory. Surgical history: As per history of present illness and as reviewed below otherwise noncontributory. Social history: See social history for further information Family history: As per history of present illness and as reviewed below otherwise noncontributory. Physical exam: General: Chronically ill appearing 80-year-old female.. Alert and orientated x 3. Nontoxic in appearance and in no acute distress. Vital signs are stable and have been reviewed by me. Nursing notes were reviewed. HEENT: Atraumatic, normocephalic, pupils equal and reactive bilaterally, negative for conjunctival pallor or scleral icterus, mucous membranes moist, TMs normal bilaterally, throat clear, neck supple, nontender, trachea midline. No drooling or trismus noted. No meningeal signs. No hot potato voice noted. Lungs: Diminished auscultation, breath sounds equal bilaterally, chest nontende r. Normal work of breathing, no accessory muscles used. Heart: S1S2, regular rate and rhythm without overt murmur Abdomen: Soft, nondistended, nontender. Negative for masses or hepatosplenomegaly. Negative for costovertebral tenderness. Skin: Intact, warm, dry. No lesions or rashes noted. Hematologic: No petechiae or purpra. Mucosa appropriate color and normal nail bed color and refill. Extremities: Atraumatic, moves all extremities per self without difficulty or deficits, negative for cords or calf pain. Neurovascular unremarkable. Neuro: Awake, alert, oriented. Cranial nerves II through XII unremarkable. Cerebellum unremarkable. Motor and sensory unremarkable throughout. Exam nonfocal. Psychiatric: Mood and affect are appropriate. Normal thought process. Answering questions appropriately. Notes: Chest x-ray shows enlarged heart. Pulmonary vessels felt to be slightly congested. Suspicious for congestive heart failure. Areas of atelectasis are also noted. Please see lab values. BNP 1356. TSH elevated. I did have a conversation with the patient about her CODE STATUS and we discussed what that meant. She would like everything done if needed, CODE I. Patient continues to be on BiPAP and does appear improved. Patient will need to be admitted for further care and management. I spoke with Dr. Osman, hospitalist on-call who is aware of her case. We will admit her for inpatient on ICU floor. I did question whether or not he wanted me to initiate anticoagulation therapy, he states he will look into it and address it when she gets to the floor. Patient is aware of admission and agreeable. Diagnostics: CBC, CMP, Troponin, BNP, EKG, CXR, BC x 2, Lactate, VBG, COVID Therapeutics: BiPAP, Lasix Impression: CHF exacerbation Hypothyroidism Renal insufficiency Afib Plan: Inpatient admission to ICU Definitive disposition and diagnosis as appropriate pending reevaluation and review of above. Right Leg Pain Score (Numeric/FACES): 10 - Related Data Allergies Allergy/AdvReac Type Severity Reaction Status Date / Time lisinopril Allergy Cough Verified 06/08/20 12:22 nitrofurantoin Allergy Rash Verified 06/08/20 12:22 [From Macrobid] pollen extracts Allergy watery eyes Verified 06/08/20 12:22 Home Meds: Home Meds Liraglutide [Victoza] 3.2 mg SUBCUT DAILY 02/20/17 [History] Simvastatin [Zocor] 40 mg PO BEDTIME 02/20/17 [History] dilTIAZem HCL [Dilt-Xr] 240 mg PO DAILY 02/20/17 [History] Doxazosin Mesylate [Cardura] 2 mg PO BEDTIME 03/17/19 [History] Levothyroxine Sodium 88 mcg PO ACBREAKFAST 03/17/19 [History] Chlorzoxazone 500 mg PO BID #10 tablet 05/17/20 [Rx] Furosemide 40 mg PO Q48H PRN 05/20/20 [History] Gabapentin [Neurontin] 1 - 2 cap PO TID 05/20/20 [History] Hydrocodone/Acetaminophen [Gilberts 10-325 Tablet] 1 each PO Q4H PRN 05/20/20 [History] Losartan [Cozaar] 100 mg PO DAILY 05/20/20 [History] Naproxen [EC-Naproxen] 500 mg PO BIDMEALS 05/20/20 [History] hydroCHLOROthiazide [Hydrochlorothiazide] 25 mg PO DAILY 05/20/20 [History] Albuterol [Ventolin HFA] 2 puff INH BID PRN 06/08/20 [History] Amiodarone [Cordarone] 200 mg PO DAILY 06/08/20 [History] Apixaban [Eliquis] 5 mg PO BID 06/08/20 [History] Aspirin 81 mg PO DAILY 06/08/20 [History] Ergocalciferol (Vitamin D2) [Vitamin D2] 50,000 unit PO DAILY 06/08/20 [History] Ferrous Sulfate 324 mg PO WITHBREAKFAST 06/08/20 [History] Liraglutide [Victoza 3-Juice] 18 mg SQ DAILY 06/08/20 [History] Metoprolol Succinate [Toprol Xl] 25 mg PO DAILY 06/08/20 [History] Pantoprazole [ProTONIX] 40 mg PO DAILY 06/08/20 [History] Tolterodine [Detrol LA 24 Hr] 2 mg PO DAILY 06/08/20 [History] amLODIPine Besylate [Amlodipine Besylate] 10 mg PO DAILY 06/08/20 [History] hydroCHLOROthiazide [Hydrochlorothiazide] 25 mg PO DAILY 06/08/20 [History] predniSONE [Prednisone] 40 mg PO DAILY 06/08/20 [History] Past Medical History HEENT History: Reports: Cataract Other HEENT History: wears glasses, has upper and lower dentures Cardiovascular History: Reports: Arrhythmia, High Cholesterol, Hypertension, Other (See Below) Other Cardiovascular History: hx of PAC's per chart, 50% stenosis in left Carotid Artery per chart Respiratory History: Reports: COPD Other Respiratory History: was told she had COPD because she smoked in the past- no symptoms and no medication Gastrointestinal History: Reports: GERD, Hiatal Hernia Genitourinary History: Reports: None Musculoskeletal History: Reports: Osteoarthritis Other Musculoskeletal History: hx fx leg and ankle Neurological History: Reports: Concussion Endocrine/Metabolic History: Reports: Diabetes, Type II, Hypothyroidism, Vitamin D Deficiency Hematologic History: Reports: Blood Transfusion(s) Oncologic (Cancer) History: Reports: Breast Dermatologic History: Reports: Other (See Below) 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 - Infectious Disease History Infectious Disease History: Reports: None - Past Surgical History Head Surgeries/Procedures: Reports: None HEENT Surgical History: Reports: Cataract Surgery, Laser Surgery Other HEENT Surgeries/Procedures: had laser done for "pressure in eyes" GI Surgical History: Reports: Appendectomy, Colon, Colonoscopy, EGD Other GI Surgeries/Procedures: hx of partial Colectomy because of ruptured appendix as a child Female Surgical History: Reports: Hysterectomy, Mastectomy, Salpingo- Oophorectomy Other Female Surgeries/Procedures: right Modified Radical mastectomy, left Simple Mastectomy Musculoskeletal Surgical History: Reports: Knee Replacement, ORIF Other Musculoskeletal Surgeries/Procedures:: Bilateral TKA (revision of right knee x2), ORIF left ankle - has screws Social & Family History - Family History Family Medical History: Noncontributory - Caffeine Use Caffeine Use: Reports: Soda ED ROS GENERAL - Review of Systems Review Of Systems: Comprehensive ROS is negative, except as noted in HPI. ED EXAM, GENERAL - Physical Exam Exam: See Below (See dictation) Course - Vital Signs Last Recorded V/S: Last Vital Signs Temp 96.3 F L 06/08/20 12:22 Pulse 80 06/08/20 14:56 Resp 15 06/08/20 13:54 BP 142/70 H 06/08/20 14:56 Pulse Ox 90 L 06/08/20 14:56 - Orders/Labs/Meds Orders: Active Orders 24 hr Category Date Time Status Admission Status [Patient Status] [ADT] Stat ADT 06/08/20 14:20 Active BIPAP Adult [RT BiPAP/CPAP] [RC] ASDIRECTED Care 06/08/20 12:52 Active EKG Documentation Completion [RC] STAT Care 06/08/20 12:28 Active EKG Documentation Completion [RC] STAT Care 06/08/20 13:55 Active CULTURE BLOOD [BC] Stat Lab 06/08/20 13:00 Received CULTURE BLOOD [BC] Stat Lab 06/08/20 13:10 Received Sodium Chloride 0.9% [Saline Flush] Med 06/08/20 12:28 Active 10 ml FLUSH ASDIRECTED PRN Sodium Chloride 0.9% [Saline Flush] Med 06/08/20 12:28 Active 2.5 ml FLUSH ASDIRECTED PRN Blood Culture x2 Reflex Set [OM.PC] Stat Oth 06/08/20 12:28 Ordered Saline Lock Insert [OM.PC] Stat Oth 06/08/20 12:28 Ordered Medication Orders Sodium Chloride (Saline Flush) 10 ml FLUSH ASDIRECTED PRN PRN Reason: Keep Vein Open Last Admin: 06/08/20 12:52 Dose: 10 ml Documented by: TAWANNA Sodium Chloride (Saline Flush) 2.5 ml FLUSH ASDIRECTED PRN PRN Reason: Keep Vein Open Last Admin: 06/08/20 12:52 Dose: 2.5 ml Documented by: TAWANNA Labs: Laboratory Tests 06/08/20 06/08/20 06/08/20 Range/Units 13:00 13:00 13:00 WBC 15.84 H (4.0-11.0) K/uL RBC 3.20 L (4.30-5.90) M/uL Hgb 9.2 L (12.0-16.0) g/dL Hct 28.4 L (36.0-46.0) % MCV 88.8 (80.0-98.0) fL MCH 28.8 (27.0-32.0) pg MCHC 32.4 (31.0-37.0) g/dL RDW Std Deviation 51.2 (28.0-62.0) fl RDW Coeff of Batool 16 H (11.0-15.0) % Plt Count 372 (150-400) K/uL MPV 10.80 (7.40-12.00) fL Neut % (Auto) 82.8 H (48.0-80.0) % Lymph % (Auto) 6.9 L (16.0-40.0) % [place] % (Auto) 10.0 (0.0-15.0) % Eos % (Auto) 0.2 (0.0-7.0) % Baso % (Auto) 0.1 (0.0-1.5) % Neut # (Auto) 13.1 H (1.4-5.7) K/uL Lymph # (Auto) 1.1 (0.6-2.4) K/uL [place] # (Auto) 1.6 H (0.0-0.8) K/uL Eos # (Auto) 0.0 (0.0-0.7) K/uL Baso # (Auto) 0.0 (0.0-0.1) K/uL Nucleated RBC % 0.0 /100WBC Nucleated RBCs # 0 K/uL VBG pH 7.42 H (7.31-7.41) VBG pCO2 43 (35-45) mmHG VBG pO2 41 H (30-40) mmHG VBG HCO3 28 (22-30) mEq/L VBG Total CO2 26 L (41-51) mmol/L VBG Base Excess 2.7 (-3.0-3.0) Lactate 1.3 (0.20-2.00) mmol/L Sodium (136-145) mmol/L Potassium (3.5-5.1) mmol/L Chloride (98-107) mmol/L Carbon Dioxide (21.0-32.0) mmol/L BUN (7.0-18.0) mg/dL Creatinine (0.6-1.0) mg/dL Est Cr Clr Drug Dosing mL/min Estimated GFR (MDRD) ml/min Glucose (74-106) mg/dL Calcium (8.5-10.1) mg/dL Total Bilirubin (0.2-1.0) mg/dL AST (15-37) IU/L ALT (14-63) IU/L Alkaline Phosphatase (46-116) U/L Troponin I (0.000-0.056) ng/mL B-Natriuretic Peptide (<100) PG/ML Total Protein (6.4-8.2) g/dL Albumin (3.4-5.0) g/dL Globulin (2.6-4.0) g/dL Albumin/Globulin Ratio (0.9-1.6) TSH 3rd Generation (0.36-3.74) uIU/mL SARS CoV-2 RNA Rapid PAUL (NEGATIVE) 06/08/20 06/08/20 06/08/20 Range/Units 13:00 13:00 13:00 WBC (4.0-11.0) K/uL RBC (4.30-5.90) M/uL Hgb (12.0-16.0) g/dL Hct (36.0-46.0) % MCV (80.0-98.0) fL MCH (27.0-32.0) pg MCHC (31.0-37.0) g/dL RDW Std Deviation (28.0-62.0) fl RDW Coeff of Batool (11.0-15.0) % Plt Count (150-400) K/uL MPV (7.40-12.00) fL Neut % (Auto) (48.0-80.0) % Lymph % (Auto) (16.0-40.0) % [place] % (Auto) (0.0-15.0) % Eos % (Auto) (0.0-7.0) % Baso % (Auto) (0.0-1.5) % Neut # (Auto) (1.4-5.7) K/uL Lymph # (Auto) (0.6-2.4) K/uL [place] # (Auto) (0.0-0.8) K/uL Eos # (Auto) (0.0-0.7) K/uL Baso # (Auto) (0.0-0.1) K/uL Nucleated RBC % /100WBC Nucleated RBCs # K/uL VBG pH (7.31-7.41) VBG pCO2 (35-45) mmHG VBG pO2 (30-40) mmHG VBG HCO3 (22-30) mEq/L VBG Total CO2 (41-51) mmol/L VBG Base Excess (-3.0-3.0) Lactate (0.20-2.00) mmol/L Sodium 137 (136-145) mmol/L Potassium 4.3 (3.5-5.1) mmol/L Chloride 102 (98-107) mmol/L Carbon Dioxide 27.5 (21.0-32.0) mmol/L BUN 41 H (7.0-18.0) mg/dL Creatinine 2.0 H (0.6-1.0) mg/dL Est Cr Clr Drug Dosing 17.94 mL/min Estimated GFR (MDRD) 23.9 ml/min Glucose 137 H (74-106) mg/dL Calcium 8.4 L (8.5-10.1) mg/dL Total Bilirubin 0.3 (0.2-1.0) mg/dL AST 51 H (15-37) IU/L ALT 124 H (14-63) IU/L Alkaline Phosphatase 70 (46-116) U/L Troponin I < 0.050 (0.000-0.056) ng/mL B-Natriuretic Peptide 1356 H (<100) PG/ML Total Protein 6.8 (6.4-8.2) g/dL Albumin 2.7 L (3.4-5.0) g/dL Globulin 4.1 H (2.6-4.0) g/dL Albumin/Globulin Ratio 0.7 L (0.9-1.6) TSH 3rd Generation 5.30 H (0.36-3.74) uIU/mL SARS CoV-2 RNA Rapid PAUL (NEGATIVE) 06/08/20 Range/Units 13:10 WBC (4.0-11.0) K/uL RBC (4.30-5.90) M/uL Hgb (12.0-16.0) g/dL Hct (36.0-46.0) % MCV (80.0-98.0) fL MCH (27.0-32.0) pg MCHC (31.0-37.0) g/dL RDW Std Deviation (28.0-62.0) fl RDW Coeff of Batool (11.0-15.0) % Plt Count (150-400) K/uL MPV (7.40-12.00) fL Neut % (Auto) (48.0-80.0) % Lymph % (Auto) (16.0-40.0) % [place] % (Auto) (0.0-15.0) % Eos % (Auto) (0.0-7.0) % Baso % (Auto) (0.0-1.5) % Neut # (Auto) (1.4-5.7) K/uL Lymph # (Auto) (0.6-2.4) K/uL [place] # (Auto) (0.0-0.8) K/uL Eos # (Auto) (0.0-0.7) K/uL Baso # (Auto) (0.0-0.1) K/uL Nucleated RBC % /100WBC Nucleated RBCs # K/uL VBG pH (7.31-7.41) VBG pCO2 (35-45) mmHG VBG pO2 (30-40) mmHG VBG HCO3 (22-30) mEq/L VBG Total CO2 (41-51) mmol/L VBG Base Excess (-3.0-3.0) Lactate (0.20-2.00) mmol/L Sodium (136-145) mmol/L Potassium (3.5-5.1) mmol/L Chloride (98-107) mmol/L Carbon Dioxide (21.0-32.0) mmol/L BUN (7.0-18.0) mg/dL Creatinine (0.6-1.0) mg/dL Est Cr Clr Drug Dosing mL/min Estimated GFR (MDRD) ml/min Glucose (74-106) mg/dL Calcium (8.5-10.1) mg/dL Total Bilirubin (0.2-1.0) mg/dL AST (15-37) IU/L ALT (14-63) IU/L Alkaline Phosphatase (46-116) U/L Troponin I (0.000-0.056) ng/mL B-Natriuretic Peptide (<100) PG/ML Total Protein (6.4-8.2) g/dL Albumin (3.4-5.0) g/dL Globulin (2.6-4.0) g/dL Albumin/Globulin Ratio (0.9-1.6) TSH 3rd Generation (0.36-3.74) uIU/mL SARS CoV-2 RNA Rapid PAUL NEGATIVE (NEGATIVE) Meds: Medications Generic Name Dose Route Start Last Admin Trade Name Freq PRN Reason Stop Dose Admin Sodium Chloride 10 ml 06/08/20 12:28 06/08/20 12:52 Saline Flush FLUSH 10 ml ASDIRECTED PRN Administration Keep Vein Open Sodium Chloride 2.5 ml 06/08/20 12:28 06/08/20 12:52 Saline Flush FLUSH 2.5 ml ASDIRECTED PRN Administration Keep Vein Open Discontinued Medications Generic Name Dose Route Start Last Admin Trade Name Freq PRN Reason Stop Dose Admin Furosemide 20 mg 06/08/20 13:11 06/08/20 13:22 Lasix IVPUSH 06/08/20 13:12 20 mg NOW ONE Administration Sodium Chloride 1,000 mls @ 999 mls/hr 06/08/20 12:28 06/08/20 12:52 Normal Saline IV 06/08/20 13:28 999 mls/hr STAT ONE Administration Departure - Departure Time of Disposition: 14:19 Disposition: Admitted As Inpatient 66 Clinical Impression: Renal insufficiency Atrial fibrillation Qualifiers: Atrial fibrillation type: unspecified Qualified Code(s): I48.91 - Unspecified atrial fibrillation CHF exacerbation Qualifiers: Heart failure type: unspecified Qualified Code(s): I50.9 - Heart failure, unspecified Hypothyroidism Qualifiers: Hypothyroidism type: unspecified Qualified Code(s): E03.9 - Hypothyroidism, unspecified - Discharge Information Referrals: Dejan Duff MD [Primary Care Provider] - Forms: ED Department Discharge Sepsis Event Note (ED) - Focused Exam Vital Signs: Vital Signs Temp Pulse Resp BP Pulse Ox 06/08/20 14:56 80 142/70 H 90 L 06/08/20 14:41 70 110/70 76 L 06/08/20 14:21 104 H 114/42 L 90 L 06/08/20 13:54 68 15 118/69 90 L 06/08/20 13:39 67 116/59 L 91 L 06/08/20 12:55 72 20 121/63 83 L 06/08/20 12:33 78 L 06/08/20 12:22 96.3 F L 76 24 H 98/39 L 64 L - My Orders Last 24 Hours: My Active Orders 06/08/20 12:28 EKG Documentation Completion [RC] STAT Sodium Chloride 0.9% [Saline Flush] 10 ml FLUSH ASDIRECTED PRN Sodium Chloride 0.9% [Saline Flush] 2.5 ml FLUSH ASDIRECTED PRN Blood Culture x2 Reflex Set [OM.PC] Stat Saline Lock Insert [OM.PC] Stat 06/08/20 12:52 BIPAP Adult [RT BiPAP/CPAP] [RC] ASDIRECTED 06/08/20 13:00 CULTURE BLOOD [BC] Stat 06/08/20 13:10 CULTURE BLOOD [BC] Stat 06/08/20 13:55 EKG Documentation Completion [RC] STAT 06/08/20 14:20 Admission Status [Patient Status] [ADT] Stat - Assessment/Plan Last 24 Hours: My Active Orders 06/08/20 12:28 EKG Documentation Completion [RC] STAT Sodium Chloride 0.9% [Saline Flush] 10 ml FLUSH ASDIRECTED PRN Sodium Chloride 0.9% [Saline Flush] 2.5 ml FLUSH ASDIRECTED PRN Blood Culture x2 Reflex Set [OM.PC] Stat Saline Lock Insert [OM.PC] Stat 06/08/20 12:52 BIPAP Adult [RT BiPAP/CPAP] [RC] ASDIRECTED 06/08/20 13:00 CULTURE BLOOD [BC] Stat 06/08/20 13:10 CULTURE BLOOD [BC] Stat 06/08/20 13:55 EKG Documentation Completion [RC] STAT 06/08/20 14:20 Admission Status [Patient Status] [ADT] Stat
[2020-06-08] MEDS ORDERED: Furosemide 40 MG/4 ML VIAL IVPUSH ONE ×3 (13:11→17:15)
--- NOTE | 2020-06-08 13:24 | CR ---
Chest: Portable view of the chest was obtained. Comparison: Prior chest x-ray of 05/20/20. Heart is enlarged. Pulmonary vessels felt to be slightly congested. Slight areas of atelectasis are seen. Bony structures are grossly intact. Impression: 1. Findings suspicious for CHF. 2. Areas of atelectasis also are noted. Diagnostic code #3 This report was dictated in MDT
--- NOTE | 2020-06-08 13:39 | PCM.SN.2 ---
- Free Text/Narrative Note: The patient was presented to me by the mid-level provider, who sees patients independently as a licensed independent practitioner by [facility] and [facility] law. Up until the time that I was consulted and assumed supervision, the mid-level provider had been solely and independently caring for this patient and they were responsible for all aspects of care including performing the history and physical, formulating medical decision making, ordering medications, and ordering and evaluating testing. I have personally and independently seen and evaluated the patient at bedside and, if available, have spoken with the with the family. I agree with the history, physical, medical decision making, and plan of treatment as documented by the mid-level provider. I have performed the medical decision making for this patient, including assessing the results of all diagnostic testing and I have instructed the mid-level provider to document the results and carry through with the treatment plan that I deemed appropriate. If needed, any other comments, a focused physical examination, or my own medical decision making are documented below. In brief, this is an 80-year-old female with a past medical history of presumed congestive heart failure, presumed COPD, apixaban anticoagulation, hypertension, hyperlipidemia, hypothyroidism presenting with shortness of breath. She states that she was hospitalized at a [facility] and was discharged approximately 2 weeks ago. She states that she went to the [facility] and underwent PCI but no stents were placed. She states that she was diagnosed with congestive heart failure and was supposed to discharge home with oxygen but she was not able to facilitate this. She states that she has been feeling short of breath for the past 2 weeks since leaving the hospital in [place] and this is worsened over the past 24 to 48 hours. She also reports subjective weight gain over the same timeframe. She has not been taking her prescribed furosemide because it makes her urinate too frequently. At present she complains of shortness of breath and chronic back pain. She denies any chest discomfort. Initially hypoxic in triage to the 60s, improved to the low 90s on BiPAP. Blood pressure 116/59, heart rate 67, atrial fibrillation on the monitor. Afebrile. Chest x-ray shows diffuse pulmonary edema pattern. Labs show leukocytosis to 15.84, stable normocytic anemia with hemoglobin 9.2. Lactate is normal. Chemistry panel shows elevated creatinine of 2.10, normal electrolytes. Mild AST and ALT elevations. Negative troponin. TSH mildly elevated at 5.30. Negative COVID swab. Initially attempted nasal cannula therapy the patient remained hypoxic and was placed on BiPAP with significant improvement in her respiratory status. Given 20 mg of IV furosemide. New onset atrial fibrillation on her twelve-lead EKG today. Will need to be admitted to the intensive care unit. Discussed with hospitalist Dr. Osman who agrees to admit to the ICU and will decide about anticoagulation. Critical care time is exclusive of billable procedures and the time to perform these procedures. Critical care time was used to prevent vital system organ fa ilure and deterioration. Critical care time includes bedside management and high-complexity decision making requiring my highest level of mental preparedness and attention. This includes reviewing the patient's chart and prior medical records, ordering and reviewing interpreting laboratory studies and imaging results, interpretation of vital signs and EKG, pulse oximetry, and discussion with the admitting team along with EMS and nursing staff. 30 minutes of critical care for acute hypoxemic respiratory failure requiring noninvasive positive pressure ventilation, serial twelve-lead EKGs, close hemodynamic monitoring, and IV diuretic medication for exacerbation of systolic congestive heart failure.
[2020-06-08 13:48] LABS: BLOOD UREA NITROGEN,BUN 41 mg/dL (7.0-18.0); CARBON DIOXIDE,CO2 27.5 mmol/L (21.0-32.0); CHLORIDE,CL 102 mmol/L (98-107); GLUCOSE RANDOM 137 mg/dL (74-106); POTASSIUM,K 4.3 mmol/L (3.5-5.1); SODIUM,NA 137 mmol/L (136-145)
--- NOTE | 2020-06-08 16:08 | PCM.HP.2 ---
H&P History of Present Illness - General Date of Service: 06/08/20 Admit Problem/Dx: Admission Diagnosis/Problem Admission Diagnosis/Problem Congestive heart failure Source of Information: Patient History Limitations: Reports: No Limitations - History of Present Illness Initial Comments - Free Text/Narative: Patient is a 80-year-old female with a significant past medical history of A. fib on Eliquis, hypertension, CHF, COPD, chronic pain: hip pain/sciatica numbness : Presenting today with increasing shortness of breath with a dry nonproductive cough. Of note patient was seen here at our facility 2 weeks earlier for increasing lethargy and was thought to have accidentally taken the next her dose of her narcotics; however her troponin was elevated x2 and was transferred to see GARRET Sorensen Per patient; PCI was performed with no stents placed, and was discharged with n ew Lasix regimen Over the past week patient was having increasing shortness of breath and was advised to start taking her Lasix every day as opposed to every other day; however due to her pain in her hip and left sciatica; patient has missed numerous doses because it made her urinate too frequently. ED course: IV Lasix 20 provided. Started on BiPAP secondary to oxygen saturations in the high 60s. Atrial fibrillation noted on EKG; denies any chest pain. Denies any fevers, chills, diarrhea, constipation, diarrhea, dysuria. Chest x-ray: Findings suspicious for CHF with areas of atelectasis Bedside: States breathing has improved however coughing is still bothersome. Is complaining of left hip pain and sciatica type pain. No other concerns at this time Right Leg Pain Score (Numeric/FACES): 6 - Related Data Allergies/Adverse Reactions: Allergies Allergy/AdvReac Type Severity Reaction Status Date / Time lisinopril Allergy Cough Verified 06/08/20 16:51 nitrofurantoin Allergy Rash Verified 06/08/20 16:51 [From Macrobid] pollen extracts Allergy watery eyes Verified 06/08/20 16:51 Home Medications: Home Meds Liraglutide [Victoza] 3.2 mg SUBCUT DAILY 02/20/17 [History] Simvastatin [Zocor] 40 mg PO BEDTIME 02/20/17 [History] dilTIAZem HCL [Dilt-Xr] 240 mg PO DAILY 02/20/17 [History] Doxazosin Mesylate [Cardura] 2 mg PO BEDTIME 03/17/19 [History] Levothyroxine Sodium 88 mcg PO ACBREAKFAST 03/17/19 [History] Chlorzoxazone 500 mg PO BID #10 tablet 05/17/20 [Rx] Furosemide 40 mg PO Q48H PRN 05/20/20 [History] Gabapentin [Neurontin] 1 - 2 cap PO TID 05/20/20 [History] Hydrocodone/Acetaminophen [Ramah 10-325 Tablet] 1 each PO Q4H PRN 05/20/20 [History] Losartan [Cozaar] 100 mg PO DAILY 05/20/20 [History] Naproxen [EC-Naproxen] 500 mg PO BIDMEALS 05/20/20 [History] hydroCHLOROthiazide [Hydrochlorothiazide] 25 mg PO DAILY 05/20/20 [History] Albuterol [Ventolin HFA] 2 puff INH BID PRN 06/08/20 [History] Amiodarone [Cordarone] 200 mg PO DAILY 06/08/20 [History] Apixaban [Eliquis] 5 mg PO BID 06/08/20 [History] Aspirin 81 mg PO DAILY 06/08/20 [History] Ergocalciferol (Vitamin D2) [Vitamin D2] 50,000 unit PO DAILY 06/08/20 [History] Ferrous Sulfate 324 mg PO WITHBREAKFAST 06/08/20 [History] Liraglutide [Victoza 3-Juice] 18 mg SQ DAILY 06/08/20 [History] Metoprolol Succinate [Toprol Xl] 25 mg PO DAILY 06/08/20 [History] Pantoprazole [ProTONIX] 40 mg PO DAILY 06/08/20 [History] Tolterodine [Detrol LA 24 Hr] 2 mg PO DAILY 06/08/20 [History] amLODIPine Besylate [Amlodipine Besylate] 10 mg PO DAILY 06/08/20 [History] hydroCHLOROthiazide [Hydrochlorothiazide] 25 mg PO DAILY 06/08/20 [History] predniSONE [Prednisone] 40 mg PO DAILY 06/08/20 [History] Past Medical History HEENT History: Reports: Cataract Other HEENT History: wears glasses, has upper and lower dentures Cardiovascular History: Reports: Arrhythmia, High Cholesterol, Hypertension, Other (See Below) Other Cardiovascular History: hx of PAC's per chart, 50% stenosis in left Carotid Artery per chart Respiratory History: Reports: COPD Other Respiratory History: was told she had COPD because she smoked in the past- no symptoms and no medication Gastrointestinal History: Reports: GERD, Hiatal Hernia Genitourinary History: Reports: None Musculoskeletal History: Reports: Osteoarthritis Other Musculoskeletal History: hx fx leg and ankle Neurological History: Reports: Concussion Endocrine/Metabolic History: Reports: Diabetes, Type II, Hypothyroidism, Vitamin D Deficiency Hematologic History: Reports: Blood Transfusion(s) Oncologic (Cancer) History: Reports: Breast Dermatologic History: Reports: Other (See Below) 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 - Infectious Disease History Infectious Disease History: Reports: None - Past Surgical History Head Surgeries/Procedures: Reports: None HEENT Surgical History: Reports: Cataract Surgery, Laser Surgery Other HEENT Surgeries/Procedures: had laser done for "pressure in eyes" GI Surgical History: Reports: Appendectomy, Colon, Colonoscopy, EGD Other GI Surgeries/Procedures: hx of partial Colectomy because of ruptured appendix as a child Female Surgical History: Reports: Hysterectomy, Mastectomy, Salpingo- Oophorectomy Other Female Surgeries/Procedures: right Modified Radical mastectomy, left Simple Mastectomy Musculoskeletal Surgical History: Reports: Knee Replacement, ORIF Other Musculoskeletal Surgeries/Procedures:: Bilateral TKA (revision of right knee x2), ORIF left ankle - has screws Social & Family History - Family History Family Medical History: Noncontributory - Tobacco Use Smoking Status *Q: Former Smoker Used Tobacco, but Quit: No - Caffeine Use Caffeine Use: Reports: Soda - Recreational Drug Use Recreational Drug Use: No H&P Review of Systems - Review of Systems: Review Of Systems: See Below General: Reports: No Symptoms. Denies: Fever, Chills HEENT: Reports: No Symptoms Pulmonary: Reports: Shortness of Breath, Wheezing, Cough. Denies: Pleuritic Chest Pain, Sputum, Hemoptysis Cardiovascular: Reports: No Symptoms Gastrointestinal: Reports: No Symptoms. Denies: Constipation, Diarrhea, Decreased Appetite, Nausea Genitourinary: Denies: Dysuria, Frequency Musculoskeletal: Reports: Back Pain, Joint Pain Skin: Reports: No Symptoms Psychiatric: Reports: No Symptoms Neurological: Reports: No Symptoms Hematologic/Lymphatic: Reports: No Symptoms Exam - Exam Exam: See Below - Vital Signs Vital Signs: Last Vital Signs Temp 96.3 F L 06/08/20 12:22 Pulse 70 06/08/20 15:51 Resp 15 06/08/20 15:23 BP 147/87 H 06/08/20 15:51 Pulse Ox 91 L 06/08/20 15:51 Weight: 77.111 kg - Exam Quality Assessment: Supplemental Oxygen General: Alert, Oriented, Cooperative HEENT: EOMI Neck: Supple, Trachea Midline Lungs: Other (wheezing ; no rales and or rhonchi; some upper airway sounds (on bipap) ) GI/Abdominal Exam: Soft, Non-Tender Back Exam: Normal Inspection, Full Range of Motion Extremities: Other (+2-3 pitting edema upto knes; trace b/l thighs ) Skin: Warm, Dry Neurological: Cranial Nerves Intact Neuro Extensive - Mental Status: Alert, Oriented x3 Psychiatric: Alert, Normal Affect, Normal Mood - Patient Data Lab Results Last 24 hrs: Laboratory Results - last 24 hr 06/08/20 06/08/20 06/08/20 Range/Units 13:00 13:00 13:00 WBC 15.84 H (4.0-11.0) K/uL RBC 3.20 L (4.30-5.90) M/uL Hgb 9.2 L (12.0-16.0) g/dL Hct 28.4 L (36.0-46.0) % MCV 88.8 (80.0-98.0) fL MCH 28.8 (27.0-32.0) pg MCHC 32.4 (31.0-37.0) g/dL RDW Std Deviation 51.2 (28.0-62.0) fl RDW Coeff of Batool 16 H (11.0-15.0) % Plt Count 372 (150-400) K/uL MPV 10.80 (7.40-12.00) fL Neut % (Auto) 82.8 H (48.0-80.0) % Lymph % (Auto) 6.9 L (16.0-40.0) % [place] % (Auto) 10.0 (0.0-15.0) % Eos % (Auto) 0.2 (0.0-7.0) % Baso % (Auto) 0.1 (0.0-1.5) % Neut # (Auto) 13.1 H (1.4-5.7) K/uL Lymph # (Auto) 1.1 (0.6-2.4) K/uL [place] # (Auto) 1.6 H (0.0-0.8) K/uL Eos # (Auto) 0.0 (0.0-0.7) K/uL Baso # (Auto) 0.0 (0.0-0.1) K/uL Nucleated RBC % 0.0 /100WBC Nucleated RBCs # 0 K/uL VBG pH 7.42 H (7.31-7.41) VBG pCO2 43 (35-45) mmHG VBG pO2 41 H (30-40) mmHG VBG HCO3 28 (22-30) mEq/L VBG Total CO2 26 L (41-51) mmol/L VBG Base Excess 2.7 (-3.0-3.0) Lactate 1.3 (0.20-2.00) mmol/L Sodium (136-145) mmol/L Potassium (3.5-5.1) mmol/L Chloride (98-107) mmol/L Carbon Dioxide (21.0-32.0) mmol/L BUN (7.0-18.0) mg/dL Creatinine (0.6-1.0) mg/dL Est Cr Clr Drug Dosing mL/min Estimated GFR (MDRD) ml/min Glucose (74-106) mg/dL Calcium (8.5-10.1) mg/dL Total Bilirubin (0.2-1.0) mg/dL AST (15-37) IU/L ALT (14-63) IU/L Alkaline Phosphatase (46-116) U/L Troponin I (0.000-0.056) ng/mL B-Natriuretic Peptide (<100) PG/ML Total Protein (6.4-8.2) g/dL Albumin (3.4-5.0) g/dL Globulin (2.6-4.0) g/dL Albumin/Globulin Ratio (0.9-1.6) TSH 3rd Generation (0.36-3.74) uIU/mL SARS CoV-2 RNA Rapid PAUL (NEGATIVE) 06/08/20 06/08/20 06/08/20 Range/Units 13:00 13:00 13:00 WBC (4.0-11.0) K/uL RBC (4.30-5.90) M/uL Hgb (12.0-16.0) g/dL Hct (36.0-46.0) % MCV (80.0-98.0) fL MCH (27.0-32.0) pg MCHC (31.0-37.0) g/dL RDW Std Deviation (28.0-62.0) fl RDW Coeff of Batool (11.0-15.0) % Plt Count (150-400) K/uL MPV (7.40-12.00) fL Neut % (Auto) (48.0-80.0) % Lymph % (Auto) (16.0-40.0) % [place] % (Auto) (0.0-15.0) % Eos % (Auto) (0.0-7.0) % Baso % (Auto) (0.0-1.5) % Neut # (Auto) (1.4-5.7) K/uL Lymph # (Auto) (0.6-2.4) K/uL [place] # (Auto) (0.0-0.8) K/uL Eos # (Auto) (0.0-0.7) K/uL Baso # (Auto) (0.0-0.1) K/uL Nucleated RBC % /100WBC Nucleated RBCs # K/uL VBG pH (7.31-7.41) VBG pCO2 (35-45) mmHG VBG pO2 (30-40) mmHG VBG HCO3 (22-30) mEq/L VBG Total CO2 (41-51) mmol/L VBG Base Excess (-3.0-3.0) Lactate (0.20-2.00) mmol/L Sodium 137 (136-145) mmol/L Potassium 4.3 (3.5-5.1) mmol/L Chloride 102 (98-107) mmol/L Carbon Dioxide 27.5 (21.0-32.0) mmol/L BUN 41 H (7.0-18.0) mg/dL Creatinine 2.0 H (0.6-1.0) mg/dL Est Cr Clr Drug Dosing 17.94 mL/min Estimated GFR (MDRD) 23.9 ml/min Glucose 137 H (74-106) mg/dL Calcium 8.4 L (8.5-10.1) mg/dL Total Bilirubin 0.3 (0.2-1.0) mg/dL AST 51 H (15-37) IU/L ALT 124 H (14-63) IU/L Alkaline Phosphatase 70 (46-116) U/L Troponin I < 0.050 (0.000-0.056) ng/mL B-Natriuretic Peptide 1356 H (<100) PG/ML Total Protein 6.8 (6.4-8.2) g/dL Albumin 2.7 L (3.4-5.0) g/dL Globulin 4.1 H (2.6-4.0) g/dL Albumin/Globulin Ratio 0.7 L (0.9-1.6) TSH 3rd Generation 5.30 H (0.36-3.74) uIU/mL SARS CoV-2 RNA Rapid PAUL (NEGATIVE) 06/08/20 Range/Units 13:10 WBC (4.0-11.0) K/uL RBC (4.30-5.90) M/uL Hgb (12.0-16.0) g/dL Hct (36.0-46.0) % MCV (80.0-98.0) fL MCH (27.0-32.0) pg MCHC (31.0-37.0) g/dL RDW Std Deviation (28.0-62.0) fl RDW Coeff of Batool (11.0-15.0) % Plt Count (150-400) K/uL MPV (7.40-12.00) fL Neut % (Auto) (48.0-80.0) % Lymph % (Auto) (16.0-40.0) % [place] % (Auto) (0.0-15.0) % Eos % (Auto) (0.0-7.0) % Baso % (Auto) (0.0-1.5) % Neut # (Auto) (1.4-5.7) K/uL Lymph # (Auto) (0.6-2.4) K/uL [place] # (Auto) (0.0-0.8) K/uL Eos # (Auto) (0.0-0.7) K/uL Baso # (Auto) (0.0-0.1) K/uL Nucleated RBC % /100WBC Nucleated RBCs # K/uL VBG pH (7.31-7.41) VBG pCO2 (35-45) mmHG VBG pO2 (30-40) mmHG VBG HCO3 (22-30) mEq/L VBG Total CO2 (41-51) mmol/L VBG Base Excess (-3.0-3.0) Lactate (0.20-2.00) mmol/L Sodium (136-145) mmol/L Potassium (3.5-5.1) mmol/L Chloride (98-107) mmol/L Carbon Dioxide (21.0-32.0) mmol/L BUN (7.0-18.0) mg/dL Creatinine (0.6-1.0) mg/dL Est Cr Clr Drug Dosing mL/min Estimated GFR (MDRD) ml/min Glucose (74-106) mg/dL Calcium (8.5-10.1) mg/dL Total Bilirubin (0.2-1.0) mg/dL AST (15-37) IU/L ALT (14-63) IU/L Alkaline Phosphatase (46-116) U/L Troponin I (0.000-0.056) ng/mL B-Natriuretic Peptide (<100) PG/ML Total Protein (6.4-8.2) g/dL Albumin (3.4-5.0) g/dL Globulin (2.6-4.0) g/dL Albumin/Globulin Ratio (0.9-1.6) TSH 3rd Generation (0.36-3.74) uIU/mL SARS CoV-2 RNA Rapid PAUL NEGATIVE (NEGATIVE) Result Diagrams: 06/08/20 13:00 06/08/20 13:00 Sepsis Event Note - Evaluation Sepsis Screening Result: No Definite Risk - Focused Exam Vital Signs: Vital Signs Temp Pulse Resp BP Pulse Ox 06/08/20 15:51 70 147/87 H 91 L 06/08/20 15:23 68 15 134/58 L 90 L 06/08/20 14:56 80 142/70 H 90 L 06/08/20 14:41 70 110/70 76 L 06/08/20 14:21 104 H 114/42 L 90 L 06/08/20 13:54 68 15 118/69 90 L 06/08/20 13:39 67 116/59 L 91 L 06/08/20 12:55 72 20 121/63 83 L 06/08/20 12:33 78 L 06/08/20 12:22 96.3 F L 76 24 H 98/39 L 64 L Problem List Initiated/Reviewed/Updated: Yes Orders Last 24hrs: Active Orders 24 hr Category Date Time Status Admission Status [Patient Status] [ADT] Stat ADT 06/08/20 14:20 Active BIPAP Adult [RT BiPAP/CPAP] [RC] ASDIRECTED Care 06/08/20 12:52 Active Communication Order [RC] ASDIRECTED Care 06/08/20 16:05 Ordered Daily Weight [Height and Weight] [RC] DAILY Care 06/08/20 16:02 Ordered EKG Documentation Completion [RC] STAT Care 06/08/20 12:28 Active EKG Documentation Completion [RC] STAT Care 06/08/20 13:55 Active Intake and Output Strict [RC] ASDIRECTED Care 06/08/20 16:01 Ordered Telemetry Monitoring [Cardiac Monitoring] [RC] . Care 06/08/20 16:04 Ordered DIRECTED Up With Assistance [RC] ASDIRECTED Care 06/08/20 16:02 Ordered 2 Gram Sodium Diet [DIET] Diet 06/09/20 Breakfast Ordered Fluid Restriction [DIET] Diet 06/09/20 Breakfast Active BMP [BASIC METABOLIC PANEL,BMP] [CHEM] AM Lab 06/09/20 05:11 Ordered BMP [BASIC METABOLIC PANEL,BMP] [CHEM] AM Lab 06/10/20 05:11 Ordered BMP [BASIC METABOLIC PANEL,BMP] [CHEM] AM Lab 06/11/20 05:11 Ordered CBC WITH AUTO DIFF [HEME] AM Lab 06/09/20 05:11 Ordered CBC WITH AUTO DIFF [HEME] AM Lab 06/10/20 05:11 Ordered CBC WITH AUTO DIFF [HEME] AM Lab 06/11/20 05:11 Ordered CULTURE BLOOD [BC] Stat Lab 06/08/20 13:00 Received CULTURE BLOOD [BC] Stat Lab 06/08/20 13:10 Received TROPONIN I [CHEM] Stat Lab 06/08/20 16:03 Ordered TROPONIN I [CHEM] Timed Lab 06/08/20 19:00 Ordered UA W/WANDA RFLX IF INDICATED [URIN] Routine Lab 06/08/20 16:05 Ordered Furosemide [Lasix] Med 06/08/20 16:03 Once 20 mg IVPUSH NOW ONE Sodium Chloride 0.9% [Saline Flush] Med 06/08/20 12:28 Active 10 ml FLUSH ASDIRECTED PRN Sodium Chloride 0.9% [Saline Flush] Med 06/08/20 12:28 Active 2.5 ml FLUSH ASDIRECTED PRN Blood Culture x2 Reflex Set [OM.PC] Stat Oth 06/08/20 12:28 Ordered Saline Lock Insert [OM.PC] Stat Oth 06/08/20 12:28 Ordered Code Status [Resuscitation Status] Routine Resus Stat 06/08/20 15:56 Ordered Medication Orders Furosemide (Lasix) 20 mg IVPUSH NOW ONE Stop: 06/08/20 16:04 Sodium Chloride (Saline Flush) 10 ml FLUSH ASDIRECTED PRN PRN Reason: Keep Vein Open Last Admin: 06/08/20 12:52 Dose: 10 ml Documented by: TAWANNA Sodium Chloride (Saline Flush) 2.5 ml FLUSH ASDIRECTED PRN PRN Reason: Keep Vein Open Last Admin: 06/08/20 12:52 Dose: 2.5 ml Documented by: TAWANNA Assessment/Plan Comment:: Assessment: 1. Acute decompensated heart failure secondary to medical noncompliance 2. 2. Leukocytosis. 3. normocytic anemia 4. Acute kidney injury 5. Past medical history: COPD sciatica, hypertension, chronic opioid use Plan Admit inpatient. Full code. I's and O's strict. Daily weights Diet: 1.5 L fluid restriction. Sodium restriction and heart healthy Anticoagulation: Continue Eliquis GI prophylaxis; pantoprazole 40 daily 1. CHF exacerbation: Home dose of 40 Lasix daily; will provide additional 20 IV Lasix at this time and monitor for response (total 40 IV today) . Luis lgive another 40 in AM (consider further diuresis PRN) Leukocytosis: Possibly reactive, will continue to monitor for oxygen sa turations; maintain O2 sats greater than 88%, can wean off BiPAP when appropriate. CTX+Azithromycin for elevated WBC in light of COPD history ; currently afebrile Recent PCI w.o stents (awaiting outside facility medical records): recheck Troponin now and at 1900 hours 2. EVERETTE: hold nephrotoxic drugs, continue to monitor in AM; 3. PMH: DM: SSI+accuchecks TID Sciatica: continue home Ramah Afib/HTN: Continue diltiazem +amiodarone+apixiban: can hold Metoprolol for now if rate controlled; can restart low dose requiring further rate control PRN ; currently OK:100
[2020-06-08] MEDS ORDERED: Non-Formulary Medication 1 Each (Hydrocodone/Acetaminophen 1 EACH) PO PRN (16:10)
[2020-06-08] MEDS: Insulin Aspart 100 Units/ML 3 ML Pen SUBCUT SCH (17:29)
--- NOTE | 2020-06-08 18:31 | PN ---
KYRA Physician - Brief Progress [id number]/16/2020 18:30[facility] Traci Saul, SHALONDA - MWN ([facility] - MWN DIOGOPRABHA DENTDate of Service 06/08/2020 18:30HPI/Event s of Note eICU Admission [id number] admitted for acute respiratory failure. History obtained from review of EMR.PMH: COPD, HTN, chronic pain with opioid dependence, hypothyroidism, DM2, recent admission fo r reported diagnosis of [place], discharged with hypoxemic respiratory failure requiring oxygen however di d not follow up to obtain oxygen per reportHPI: Patient presented to ED with complaints of shortness of breath. On evaluation patient was notably hypoxic, for which she was eventually placed on BPAP.She was admitted to the ICU for further management.Laboratory evaluation revealed leukocytosis and normo cytic anemia, elevated creatinine, a mild transaminitis, elevated BNP, and an elevated TSH. COVID layton ting was negative. Venous blood gas revealed a PCO2 within normal range.CXR revealed bibasilar infilt rates.Camera exam: Laying in bed. Vitals monitor reviewed. eICU Impression and Recommendations:Acute hypoxemic respiratory failure, differential including heart failure, pneumoniaPositive SIRS criteria as evidenced by documentation of hypothermia, tachypnea and leukocytosis, with concern for sepsis. Di fferential includes pneumonia given basilar infiltrates on CXR and acute hypoxemic respiratory failur eElevated BNP, with concern of heart failure with acute exacerbationElevated creatinine with concern for acute kidney injury, etiology suspected to be pre-renalAs blood gas fails to demonstrate hypercap judy, recommend use of HFNC over NIPPV for management of hypoxemic respiratory failureRecommend initia tion of infectious/sepsis work up with blood cultures, lactate, urinalysisRecommend empiric antibioti cs until infection ruled outDefer diuresis to bedside examination of volume statusCan consider urine sodium, urea, and creatinine for calculation of FENa and FEUrStrict I/OTrend creatinineAvoid nephroto xic agentsDVT and GI prophylaxis as appropriate.Thank you for allowing us to participate in the care of this patient.The above note transcribed with the assistance of dictation software. Please excuse a ny errors.Interventions Major-Respiratory failure - evaluation and management, Sepsis - evaluation an d management
--- NOTE | 2020-06-08 18:32 | PN ---
THC Physician - Brief Progress [id number]/16/2020 18:31[facility] Traci barros [place] - DANNIELLE [facility] - PRABHA HERNANDEZDate of Service 06/08/2020 18:31HPI/Event s of Note eICU Update AddendumHypothyroidism, elevated TSHRecommend [id number] Major-Other: hyp othyroidism
[2020-06-08] MEDS ORDERED: cefTRIAXone 1 GM in Sodium Chloride 0.9% 50 ML IV SCH (19:30)
[2020-06-08] MEDS ORDERED: Azithromycin 500 MG Vial ONE (19:51)
[2020-06-08] MEDS ORDERED: Sodium Chloride 0.9% 250 ML ONE (19:51)
[2020-06-08] MEDS ORDERED: Azithromycin 500 MG Vial IV SCH (20:00)
[2020-06-08] MEDS ORDERED: Azithromycin 500 MG in Sodium Chloride 0.9% 250 ML IV SCH (20:00)
[2020-06-08] MEDS: Simvastatin 40 MG Tab PO SCH (20:19)
[2020-06-08] MEDS: Apixaban 5 MG Tab PO SCH (20:19)
[2020-06-08] MEDS: Gabapentin 300 MG Cap PO SCH (21:11)
[2020-06-09] MEDS: Acetaminophen/HYDROcodone 325-10 MG Tab PO PRN ×2 (02:48→11:30)
[2020-06-09] MEDS: Gabapentin 300 MG Cap PO SCH ×3 (06:01→21:43)
[2020-06-09 07:25] LABS: POTASSIUM,K 4.6 mmol/L (3.5-5.1)
[2020-06-09] MEDS: Insulin Aspart 100 Units/ML 3 ML Pen SUBCUT SCH ×3 (07:30→18:05)
[2020-06-09] MEDS: Levothyroxine 88 MCG Tab PO SCH (07:58)
[2020-06-09] MEDS: Apixaban 5 MG Tab PO SCH ×2 (08:00→20:32)
[2020-06-09] MEDS: Diltiazem 120 MG Cap.CD PO SCH (08:00)
[2020-06-09] MEDS: Aspirin 81 MG Tab.Chew PO SCH (08:00)
[2020-06-09] MEDS: Pantoprazole 40 MG Tab.CR PO SCH (08:00)
[2020-06-09] MEDS: Amiodarone 200 MG Tab PO SCH (08:02)
[2020-06-09] MEDS ORDERED: Furosemide 40 MG/4 ML VIAL IVPUSH ONE (09:13)
[2020-06-09] MEDS ORDERED: Bisacodyl 10 MG Supp RECTAL PRN (09:18)
[2020-06-09] MEDS ORDERED: Morphine 2 MG/ML SYRINGE IVPUSH ONE (09:22)
--- NOTE | 2020-06-09 11:04 | PN ---
THC Physician - Brief Progress [id number]/17/2020 11:02[facility] Traci Saul, SHALONDA [facility] - MWN DEVIPRABHA STEWARTNildaDate of Service 06/09/2020 11:02HPI/Event s of Note eICU Progress [id number] admitted for acute respiratory failure. History obtained from review of EMR.Camera exam: Laying in bed. Vitals monitor reviewed.eICU Impression and Recommendations:Acute hypoxemic respiratory failure, differential including heart failure, pneumoniaPositive SIRS criteria as evidenced by documentation of hypothermia, tachypnea and leukocytosis,with concern for sepsis, imp roved Elevated BNP, with concern of heart failure with acute exacerbationElevated creatinine with con cern for acute kidney injuryNo new recommendations at this timeDefer further diuresis to bedside exam ination/determination of volume statusPlease see admission note for other prior recommendationsDVT an d GI prophylaxis as appropriate.Thank you for allowing us to participate in the care of this patient. The above note transcribed with the assistance of dictation software. Please excuse any errors.Interv entions Major-Respiratory failure - evaluation and management
--- NOTE | 2020-06-09 12:34 | PCM.PN ---
<Saud Hackett - Last Filed: 06/09/20 15:00> - General Info Date of Service: 06/09/20 Subjective Update: Bedside: complaints regarding hips and leg pain (chronic) from sciatica; requesting more pain meds Refusing Bipap but is not c.o CP, palpitations C.o of breakfast being "terrible" - Review of Systems General: Reports: No Symptoms HEENT: Reports: No Symptoms Pulmonary: Reports: Shortness of Breath, Cough, Wheezing. Denies: Hemoptysis Cardiovascular: Reports: No Symptoms Gastrointestinal: Reports: No Symptoms Genitourinary: Reports: No Symptoms Musculoskeletal: Reports: Leg Pain, Joint Pain Skin: Reports: No Symptoms Neurological: Reports: No Symptoms - Patient Data Vitals - Most Recent: Last Vital Signs Temp 99.1 F 06/09/20 12:00 Pulse 68 06/09/20 08:00 Resp 20 06/09/20 12:00 BP 122/50 L 06/09/20 12:00 Pulse Ox 88 L 06/09/20 12:00 Weight - Most Recent: 87.3 kg I&O - Last 24 Hours: Intake & Output 06/08/20 06/09/20 06/09/20 22:59 06:59 14:59 Intake Total 100 360 200 Output Total 200 580 200 Balance -100 -220 0 Lab Results Last 24 Hours: Laboratory Results - last 24 hr 06/08/20 06/08/20 06/08/20 Range/Units 00:00 13:00 13:00 WBC 15.84 H (4.0-11.0) K/uL RBC 3.20 L (4.30-5.90) M/uL Hgb 9.2 L (12.0-16.0) g/dL Hct 28.4 L (36.0-46.0) % MCV 88.8 (80.0-98.0) fL MCH 28.8 (27.0-32.0) pg MCHC 32.4 (31.0-37.0) g/dL RDW Std Deviation 51.2 (28.0-62.0) fl RDW Coeff of Batool 16 H (11.0-15.0) % Plt Count 372 (150-400) K/uL MPV 10.80 (7.40-12.00) fL Neut % (Auto) 82.8 H (48.0-80.0) % Lymph % (Auto) 6.9 L (16.0-40.0) % Butts % (Auto) 10.0 (0.0-15.0) % Eos % (Auto) 0.2 (0.0-7.0) % Baso % (Auto) 0.1 (0.0-1.5) % Neut # (Auto) 13.1 H (1.4-5.7) K/uL Lymph # (Auto) 1.1 (0.6-2.4) K/uL Butts # (Auto) 1.6 H (0.0-0.8) K/uL Eos # (Auto) 0.0 (0.0-0.7) K/uL Baso # (Auto) 0.0 (0.0-0.1) K/uL Nucleated RBC % 0.0 /100WBC Nucleated RBCs # 0 K/uL D-Dimer, Quantitative (0.0-0.50) mg/L FEU VBG pH 7.42 H (7.31-7.41) VBG pCO2 43 (35-45) mmHG VBG pO2 41 H (30-40) mmHG VBG HCO3 28 (22-30) mEq/L VBG Total CO2 26 L (41-51) mmol/L VBG Base Excess 2.7 (-3.0-3.0) Lactate (0.20-2.00) mmol/L Sodium (136-145) mmol/L Potassium (3.5-5.1) mmol/L Chloride (98-107) mmol/L Carbon Dioxide (21.0-32.0) mmol/L BUN (7.0-18.0) mg/dL Creatinine (0.6-1.0) mg/dL Est Cr Clr Drug Dosing mL/min Estimated GFR (MDRD) ml/min Glucose (74-106) mg/dL POC Glucose (60-110) mg/dL Calcium (8.5-10.1) mg/dL Total Bilirubin (0.2-1.0) mg/dL AST (15-37) IU/L ALT (14-63) IU/L Alkaline Phosphatase (46-116) U/L Troponin I (0.000-0.056) ng/mL B-Natriuretic Peptide (<100) PG/ML Total Protein (6.4-8.2) g/dL Albumin (3.4-5.0) g/dL Globulin (2.6-4.0) g/dL Albumin/Globulin Ratio (0.9-1.6) Free T4 1.27 (0.76-1.46) ng/dL Free T3 0.72 L (2.18-3.98) pg/mL TSH 3rd Generation (0.36-3.74) uIU/mL Urine Color Urine Appearance Urine pH (5.0-8.0) Ur Specific [place] (1.001-1.035) Urine Protein (NEGATIVE) mg/dL Urine Glucose (UA) (NEGATIVE) mg/dL Urine Ketones (NEGATIVE) mg/dL Urine Occult Blood (NEGATIVE) Urine Nitrite (NEGATIVE) Urine Bilirubin (NEGATIVE) Urine Urobilinogen (<2.0) EU/dL Ur Leukocyte Esterase (NEGATIVE) Urine RBC (0-2/HPF) Urine WBC (0-5/HPF) Ur Epithelial Cells (NONE-FEW) Urine Bacteria (NEGATIVE) SARS CoV-2 RNA Rapid PAUL (NEGATIVE) 06/08/20 06/08/20 06/08/20 Range/Units 13:00 13:00 13:00 WBC (4.0-11.0) K/uL RBC (4.30-5.90) M/uL Hgb (12.0-16.0) g/dL Hct (36.0-46.0) % MCV (80.0-98.0) fL MCH (27.0-32.0) pg MCHC (31.0-37.0) g/dL RDW Std Deviation (28.0-62.0) fl RDW Coeff of Batool (11.0-15.0) % Plt Count (150-400) K/uL MPV (7.40-12.00) fL Neut % (Auto) (48.0-80.0) % Lymph % (Auto) (16.0-40.0) % Butts % (Auto) (0.0-15.0) % Eos % (Auto) (0.0-7.0) % Baso % (Auto) (0.0-1.5) % Neut # (Auto) (1.4-5.7) K/uL Lymph # (Auto) (0.6-2.4) K/uL Butts # (Auto) (0.0-0.8) K/uL Eos # (Auto) (0.0-0.7) K/uL Baso # (Auto) (0.0-0.1) K/uL Nucleated RBC % /100WBC Nucleated RBCs # K/uL D-Dimer, Quantitative (0.0-0.50) mg/L FEU VBG pH (7.31-7.41) VBG pCO2 (35-45) mmHG VBG pO2 (30-40) mmHG VBG HCO3 (22-30) mEq/L VBG Total CO2 (41-51) mmol/L VBG Base Excess (-3.0-3.0) Lactate 1.3 (0.20-2.00) mmol/L Sodium 137 (136-145) mmol/L Potassium 4.3 (3.5-5.1) mmol/L Chloride 102 (98-107) mmol/L Carbon Dioxide 27.5 (21.0-32.0) mmol/L BUN 41 H (7.0-18.0) mg/dL Creatinine 2.0 H (0.6-1.0) mg/dL Est Cr Clr Drug Dosing 17.94 mL/min Estimated GFR (MDRD) 23.9 ml/min Glucose 137 H (74-106) mg/dL POC Glucose (60-110) mg/dL Calcium 8.4 L (8.5-10.1) mg/dL Total Bilirubin 0.3 (0.2-1.0) mg/dL AST 51 H (15-37) IU/L ALT 124 H (14-63) IU/L Alkaline Phosphatase 70 (46-116) U/L Troponin I < 0.050 (0.000-0.056) ng/mL B-Natriuretic Peptide 1356 H (<100) PG/ML Total Protein 6.8 (6.4-8.2) g/dL Albumin 2.7 L (3.4-5.0) g/dL Globulin 4.1 H (2.6-4.0) g/dL Albumin/Globulin Ratio 0.7 L (0.9-1.6) Free T4 (0.76-1.46) ng/dL Free T3 (2.18-3.98) pg/mL TSH 3rd Generation (0.36-3.74) uIU/mL Urine Color Urine Appearance Urine pH (5.0-8.0) Ur Specific [place] (1.001-1.035) Urine Protein (NEGATIVE) mg/dL Urine Glucose (UA) (NEGATIVE) mg/dL Urine Ketones (NEGATIVE) mg/dL Urine Occult Blood (NEGATIVE) Urine Nitrite (NEGATIVE) Urine Bilirubin (NEGATIVE) Urine Urobilinogen (<2.0) EU/dL Ur Leukocyte Esterase (NEGATIVE) Urine RBC (0-2/HPF) Urine WBC (0-5/HPF) Ur Epithelial Cells (NONE-FEW) Urine Bacteria (NEGATIVE) SARS CoV-2 RNA Rapid PAUL (NEGATIVE) 06/08/20 06/08/20 06/08/20 Range/Units 13:00 13:10 16:24 WBC (4.0-11.0) K/uL RBC (4.30-5.90) M/uL Hgb (12.0-16.0) g/dL Hct (36.0-46.0) % MCV (80.0-98.0) fL MCH (27.0-32.0) pg MCHC (31.0-37.0) g/dL RDW Std Deviation (28.0-62.0) fl RDW Coeff of Batool (11.0-15.0) % Plt Count (150-400) K/uL MPV (7.40-12.00) fL Neut % (Auto) (48.0-80.0) % Lymph % (Auto) (16.0-40.0) % Butts % (Auto) (0.0-15.0) % Eos % (Auto) (0.0-7.0) % Baso % (Auto) (0.0-1.5) % Neut # (Auto) (1.4-5.7) K/uL Lymph # (Auto) (0.6-2.4) K/uL Butts # (Auto) (0.0-0.8) K/uL Eos # (Auto) (0.0-0.7) K/uL Baso # (Auto) (0.0-0.1) K/uL Nucleated RBC % /100WBC Nucleated RBCs # K/uL D-Dimer, Quantitative (0.0-0.50) mg/L FEU VBG pH (7.31-7.41) VBG pCO2 (35-45) mmHG VBG pO2 (30-40) mmHG VBG HCO3 (22-30) mEq/L VBG Total CO2 (41-51) mmol/L VBG Base Excess (-3.0-3.0) Lactate (0.20-2.00) mmol/L Sodium (136-145) mmol/L Potassium (3.5-5.1) mmol/L Chloride (98-107) mmol/L Carbon Dioxide (21.0-32.0) mmol/L BUN (7.0-18.0) mg/dL Creatinine (0.6-1.0) mg/dL Est Cr Clr Drug Dosing mL/min Estimated GFR (MDRD) ml/min Glucose (74-106) mg/dL POC Glucose (60-110) mg/dL Calcium (8.5-10.1) mg/dL Total Bilirubin (0.2-1.0) mg/dL AST (15-37) IU/L ALT (14-63) IU/L Alkaline Phosphatase (46-116) U/L Troponin I < 0.050 (0.000-0.056) ng/mL B-Natriuretic Peptide (<100) PG/ML Total Protein (6.4-8.2) g/dL Albumin (3.4-5.0) g/dL Globulin (2.6-4.0) g/dL Albumin/Globulin Ratio (0.9-1.6) Free T4 (0.76-1.46) ng/dL Free T3 (2.18-3.98) pg/mL TSH 3rd Generation 5.30 H (0.36-3.74) uIU/mL Urine Color Urine Appearance Urine pH (5.0-8.0) Ur Specific [place] (1.001-1.035) Urine Protein (NEGATIVE) mg/dL Urine Glucose (UA) (NEGATIVE) mg/dL Urine Ketones (NEGATIVE) mg/dL Urine Occult Blood (NEGATIVE) Urine Nitrite (NEGATIVE) Urine Bilirubin (NEGATIVE) Urine Urobilinogen (<2.0) EU/dL Ur Leukocyte Esterase (NEGATIVE) Urine RBC (0-2/HPF) Urine WBC (0-5/HPF) Ur Epithelial Cells (NONE-FEW) Urine Bacteria (NEGATIVE) SARS CoV-2 RNA Rapid PAUL NEGATIVE (NEGATIVE) 06/08/20 06/08/20 06/08/20 Range/Units 17:20 21:35 22:05 WBC (4.0-11.0) K/uL RBC (4.30-5.90) M/uL Hgb (12.0-16.0) g/dL Hct (36.0-46.0) % MCV (80.0-98.0) fL MCH (27.0-32.0) pg MCHC (31.0-37.0) g/dL RDW Std Deviation (28.0-62.0) fl RDW Coeff of Batool (11.0-15.0) % Plt Count (150-400) K/uL MPV (7.40-12.00) fL Neut % (Auto) (48.0-80.0) % Lymph % (Auto) (16.0-40.0) % Butts % (Auto) (0.0-15.0) % Eos % (Auto) (0.0-7.0) % Baso % (Auto) (0.0-1.5) % Neut # (Auto) (1.4-5.7) K/uL Lymph # (Auto) (0.6-2.4) K/uL Butts # (Auto) (0.0-0.8) K/uL Eos # (Auto) (0.0-0.7) K/uL Baso # (Auto) (0.0-0.1) K/uL Nucleated RBC % /100WBC Nucleated RBCs # K/uL D-Dimer, Quantitative (0.0-0.50) mg/L FEU VBG pH (7.31-7.41) VBG pCO2 (35-45) mmHG VBG pO2 (30-40) mmHG VBG HCO3 (22-30) mEq/L VBG Total CO2 (41-51) mmol/L VBG Base Excess (-3.0-3.0) Lactate (0.20-2.00) mmol/L Sodium (136-145) mmol/L Potassium (3.5-5.1) mmol/L Chloride (98-107) mmol/L Carbon Dioxide (21.0-32.0) mmol/L BUN (7.0-18.0) mg/dL Creatinine (0.6-1.0) mg/dL Est Cr Clr Drug Dosing mL/min Estimated GFR (MDRD) ml/min Glucose (74-106) mg/dL POC Glucose 138 H (60-110) mg/dL Calcium (8.5-10.1) mg/dL Total Bilirubin (0.2-1.0) mg/dL AST (15-37) IU/L ALT (14-63) IU/L Alkaline Phosphatase (46-116) U/L Troponin I < 0.050 (0.000-0.056) ng/mL B-Natriuretic Peptide (<100) PG/ML Total Protein (6.4-8.2) g/dL Albumin (3.4-5.0) g/dL Globulin (2.6-4.0) g/dL Albumin/Globulin Ratio (0.9-1.6) Free T4 (0.76-1.46) ng/dL Free T3 (2.18-3.98) pg/mL TSH 3rd Generation (0.36-3.74) uIU/mL Urine Color YELLOW Urine Appearance SLT CLOUDY Urine pH 5.0 (5.0-8.0) Ur Specific [place] 1.020 (1.001-1.035) Urine Protein NEGATIVE (NEGATIVE) mg/dL Urine Glucose (UA) NEGATIVE (NEGATIVE) mg/dL Urine Ketones NEGATIVE (NEGATIVE) mg/dL Urine Occult Blood NEGATIVE (NEGATIVE) Urine Nitrite NEGATIVE (NEGATIVE) Urine Bilirubin NEGATIVE (NEGATIVE) Urine Urobilinogen 0.2 (<2.0) EU/dL Ur Leukocyte Esterase MODERATE H (NEGATIVE) Urine RBC 0-2 (0-2/HPF) Urine WBC 3-6 (0-5/HPF) Ur Epithelial Cells RARE (NONE-FEW) Urine Bacteria FEW (NEGATIVE) SARS CoV-2 RNA Rapid PAUL (NEGATIVE) 06/09/20 06/09/20 06/09/20 Range/Units 05:20 05:20 06:05 WBC 10.88 (4.0-11.0) K/uL RBC 3.14 L (4.30-5.90) M/uL Hgb 8.9 L (12.0-16.0) g/dL Hct 28.2 L (36.0-46.0) % MCV 89.8 (80.0-98.0) fL MCH 28.3 (27.0-32.0) pg MCHC 31.6 (31.0-37.0) g/dL RDW Std Deviation 52.1 (28.0-62.0) fl RDW Coeff of Batool 16 H (11.0-15.0) % Plt Count 368 (150-400) K/uL MPV 10.90 (7.40-12.00) fL Neut % (Auto) 78.3 (48.0-80.0) % Lymph % (Auto) 13.3 L (16.0-40.0) % Butts % (Auto) 7.5 (0.0-15.0) % Eos % (Auto) 0.7 (0.0-7.0) % Baso % (Auto) 0.2 (0.0-1.5) % Neut # (Auto) 8.5 H (1.4-5.7) K/uL Lymph # (Auto) 1.5 (0.6-2.4) K/uL Butts # (Auto) 0.8 (0.0-0.8) K/uL Eos # (Auto) 0.1 (0.0-0.7) K/uL Baso # (Auto) 0.0 (0.0-0.1) K/uL Nucleated RBC % 0.0 /100WBC Nucleated RBCs # 0 K/uL D-Dimer, Quantitative (0.0-0.50) mg/L FEU VBG pH (7.31-7.41) VBG pCO2 (35-45) mmHG VBG pO2 (30-40) mmHG VBG HCO3 (22-30) mEq/L VBG Total CO2 (41-51) mmol/L VBG Base Excess (-3.0-3.0) Lactate (0.20-2.00) mmol/L Sodium 138 (136-145) mmol/L Potassium 4.6 (3.5-5.1) mmol/L Chloride 102 (98-107) mmol/L Carbon Dioxide 27.0 (21.0-32.0) mmol/L BUN 45 H (7.0-18.0) mg/dL Creatinine 2.1 H (0.6-1.0) mg/dL Est Cr Clr Drug Dosing 17.09 mL/min Estimated GFR (MDRD) 22.5 ml/min Glucose 110 H (74-106) mg/dL POC Glucose 108 (60-110) mg/dL Calcium 8.8 (8.5-10.1) mg/dL Total Bilirubin (0.2-1.0) mg/dL AST (15-37) IU/L ALT (14-63) IU/L Alkaline Phosphatase (46-116) U/L Troponin I (0.000-0.056) ng/mL B-Natriuretic Peptide (<100) PG/ML Total Protein (6.4-8.2) g/dL Albumin (3.4-5.0) g/dL Globulin (2.6-4.0) g/dL Albumin/Globulin Ratio (0.9-1.6) Free T4 (0.76-1.46) ng/dL Free T3 (2.18-3.98) pg/mL TSH 3rd Generation (0.36-3.74) uIU/mL Urine Color Urine Appearance Urine pH (5.0-8.0) Ur Specific [place] (1.001-1.035) Urine Protein (NEGATIVE) mg/dL Urine Glucose (UA) (NEGATIVE) mg/dL Urine Ketones (NEGATIVE) mg/dL Urine Occult Blood (NEGATIVE) Urine Nitrite (NEGATIVE) Urine Bilirubin (NEGATIVE) Urine Urobilinogen (<2.0) EU/dL Ur Leukocyte Esterase (NEGATIVE) Urine RBC (0-2/HPF) Urine WBC (0-5/HPF) Ur Epithelial Cells (NONE-FEW) Urine Bacteria (NEGATIVE) SARS CoV-2 RNA Rapid PAUL (NEGATIVE) 06/09/20 06/09/20 Range/Units 09:40 11:34 WBC (4.0-11.0) K/uL RBC (4.30-5.90) M/uL Hgb (12.0-16.0) g/dL Hct (36.0-46.0) % MCV (80.0-98.0) fL MCH (27.0-32.0) pg MCHC (31.0-37.0) g/dL RDW Std Deviation (28.0-62.0) fl RDW Coeff of Batool (11.0-15.0) % Plt Count (150-400) K/uL MPV (7.40-12.00) fL Neut % (Auto) (48.0-80.0) % Lymph % (Auto) (16.0-40.0) % Butts % (Auto) (0.0-15.0) % Eos % (Auto) (0.0-7.0) % Baso % (Auto) (0.0-1.5) % Neut # (Auto) (1.4-5.7) K/uL Lymph # (Auto) (0.6-2.4) K/uL Butts # (Auto) (0.0-0.8) K/uL Eos # (Auto) (0.0-0.7) K/uL Baso # (Auto) (0.0-0.1) K/uL Nucleated RBC % /100WBC Nucleated RBCs # K/uL D-Dimer, Quantitative 0.65 H (0.0-0.50) mg/L FEU VBG pH (7.31-7.41) VBG pCO2 (35-45) mmHG VBG pO2 (30-40) mmHG VBG HCO3 (22-30) mEq/L VBG Total CO2 (41-51) mmol/L VBG Base Excess (-3.0-3.0) Lactate (0.20-2.00) mmol/L Sodium (136-145) mmol/L Potassium (3.5-5.1) mmol/L Chloride (98-107) mmol/L Carbon Dioxide (21.0-32.0) mmol/L BUN (7.0-18.0) mg/dL Creatinine (0.6-1.0) mg/dL Est Cr Clr Drug Dosing mL/min Estimated GFR (MDRD) ml/min Glucose (74-106) mg/dL POC Glucose 112 H (60-110) mg/dL Calcium (8.5-10.1) mg/dL Total Bilirubin (0.2-1.0) mg/dL AST (15-37) IU/L ALT (14-63) IU/L Alkaline Phosphatase (46-116) U/L Troponin I (0.000-0.056) ng/mL B-Natriuretic Peptide (<100) PG/ML Total Protein (6.4-8.2) g/dL Albumin (3.4-5.0) g/dL Globulin (2.6-4.0) g/dL Albumin/Globulin Ratio (0.9-1.6) Free T4 (0.76-1.46) ng/dL Free T3 (2.18-3.98) pg/mL TSH 3rd Generation (0.36-3.74) uIU/mL Urine Color Urine Appearance Urine pH (5.0-8.0) Ur Specific [place] (1.001-1.035) Urine Protein (NEGATIVE) mg/dL Urine Glucose (UA) (NEGATIVE) mg/dL Urine Ketones (NEGATIVE) mg/dL Urine Occult Blood (NEGATIVE) Urine Nitrite (NEGATIVE) Urine Bilirubin (NEGATIVE) Urine Urobilinogen (<2.0) EU/dL Ur Leukocyte Esterase (NEGATIVE) Urine RBC (0-2/HPF) Urine WBC (0-5/HPF) Ur Epithelial Cells (NONE-FEW) Urine Bacteria (NEGATIVE) SARS CoV-2 RNA Rapid PAUL (NEGATIVE) Med Orders - Current: Current Medications Hydrocodone Bitart/Acetaminophen ([place] 325-10 Mg) 1 tab PO Q6H PRN PRN Reason: Pain Last Admin: 06/09/20 11:30 Dose: 1 tab Documented by: Amiodarone HCl (Cordarone) 200 mg PO DAILY [facility] Last Admin: 06/09/20 08:02 Dose: 200 mg Documented by: Apixaban (Eliquis) 5 mg PO BID [facility] Last Admin: 06/09/20 08:00 Dose: 5 mg Documented by: Aspirin (Aspirin) 81 mg PO DAILY [facility] Last Admin: 06/09/20 08:00 Dose: 81 mg Documented by: Bisacodyl (Dulcolax) 10 mg RECTAL DAILY PRN PRN Reason: Constipation Diltiazem HCl (Cardizem Cd) 240 mg PO DAILY [facility] Last Admin: 06/09/20 08:00 Dose: 240 mg Documented by: Gabapentin (Neurontin) 300 mg PO TID [facility] Last Admin: 06/09/20 06:01 Dose: 300 mg Documented by: Ceftriaxone Sodium/Dextrose (Rocephin In Dextrose,Iso-Osm 1 Gm/50 Ml) 50 mls @ 100 mls/hr IV Q24H [facility] Last Admin: 06/08/20 19:57 Dose: 100 mls/hr Documented by: Azithromycin 500 mg/ Sodium (Chloride) 250 mls @ 250 mls/hr IV Q24H [facility] Last Admin: 06/08/20 20:34 Dose: 250 mls/hr Documented by: Insulin Aspart (Novolog) 0 unit SUBCUT TIDAC [facility]; Protocol Last Admin: 06/09/20 11:35 Dose: Not Given Documented by: Levothyroxine Sodium (Synthroid) 88 mcg PO ACBREAKFAST [facility] Last Admin: 06/09/20 07:58 Dose: 88 mcg Documented by: Pantoprazole Sodium (Protonix) 40 mg PO DAILY [facility] Last Admin: 06/09/20 08:00 Dose: 40 mg Documented by: Simvastatin (Zocor) 40 mg PO BEDTIME [facility] Last Admin: 06/08/20 20:19 Dose: 40 mg Documented by: Sodium Chloride (Saline Flush) 10 ml FLUSH ASDIRECTED PRN PRN Reason: Keep Vein Open Last Admin: 06/08/20 12:52 Dose: 10 ml Documented by: Sodium Chloride (Saline Flush) 2.5 ml FLUSH ASDIRECTED PRN PRN Reason: Keep Vein Open Last Admin: 06/08/20 12:52 Dose: 2.5 ml Documented by: Discontinued Medications Azithromycin (Zithromax) 500 mg IV Q24H [facility] Azithromycin (Zithromax) Confirm Administered Dose 500 mg .ROUTE .STK-MED ONE Stop: 06/08/20 19:52 Last Admin: 06/08/20 20:11 Dose: Not Given Documented by: Furosemide (Lasix) 20 mg IVPUSH NOW ONE Stop: 06/08/20 13:12 Last Admin: 06/08/20 13:22 Dose: 20 mg Documented by: Furosemide (Lasix) 20 mg IVPUSH NOW ONE Stop: 06/08/20 16:04 Last Admin: 06/08/20 17:28 Dose: Not Given Documented by: Furosemide (Lasix) 20 mg IVPUSH NOW ONE Stop: 06/08/20 17:16 Last Admin: 06/08/20 17:28 Dose: 20 mg Documented by: Furosemide (Lasix) 60 mg IVPUSH NOW ONE Stop: 06/09/20 09:14 Last Admin: 06/09/20 09:45 Dose: 60 mg Documented by: Sodium Chloride (Normal Saline) 1,000 mls @ 999 mls/hr IV STAT ONE Stop: 06/08/20 13:28 Last Admin: 06/08/20 12:52 Dose: 999 mls/hr Documented by: Ceftriaxone Sodium 1 gm/ (Sodium Chloride) 50 mls @ 100 mls/hr IV Q24H [facility] Last Admin: 06/08/20 19:33 Dose: Not Given Documented by: Sodium Chloride (Normal Saline (Advbag)) Confirm Administered Dose 250 mls @ as directed .ROUTE .STK-MED ONE Stop: 06/08/20 19:52 Last Admin: 06/08/20 20:11 Dose: Not Given Documented by: Morphine Sulfate (Morphine) 1 mg IVPUSH ONETIME ONE Stop: 06/09/20 09:23 Last Admin: 06/09/20 09:46 Dose: 1 mg Documented by: - Exam Quality Assessment: Supplemental Oxygen General: Alert, Oriented, Mild Distress HEENT: EOMI Neck: Supple Lungs: Other (+wheezing , less congested comparted to yesterday ) Cardiovascular: Regular Rate, Irregular Rhythm GI/Abdominal Exam: Soft, Non-Tender Extremities: Other (right hip pain/left hip pain ; lower extremity edema now 1- 2+; vast improvment since yesterday ) Skin: Warm Neurological: No New Focal Deficit Psy/Mental Status: Alert Sepsis Event Note - Evaluation Sepsis Screening Result: No Definite Risk - Focused Exam Vital Signs: Vital Signs Temp Pulse Resp BP BP Pulse Ox 06/09/20 12:00 99.1 F 20 122/50 L 88 L 06/09/20 11:00 20 114/47 L 89 L 06/09/20 10:00 16 129/34 L 90 L 06/09/20 09:00 21 H 122/45 L 89 L 06/09/20 08:00 99.1 F 68 18 125/55 L 125/55 L 88 L 06/09/20 07:00 23 H 142/74 H 89 L 06/09/20 04:00 98.2 F 18 131/53 L 87 L 06/09/20 03:00 17 139/52 L 86 L 06/09/20 02:00 17 89 L 06/09/20 01:00 18 109/58 L 89 L - Problem List Review Problem List Initiated/Reviewed/Updated: Yes - My Orders Last 24 Hours: My Active Orders 06/08/20 15:56 Code Status [Resuscitation Status] Routine 06/08/20 16:02 Daily Weight [Height and Weight] [] DAILY Up With Assistance [] ASDIRECTED 06/08/20 16:04 Telemetry Monitoring [Cardiac Monitoring] [] Q8H 06/08/20 16:05 Communication Order [] ASDIRECTED 06/08/20 16:15 Accu Check [Blood Glucose Check, Bedside] [] TIDMEALS 06/08/20 16:34 Oxygen Therapy Adult [Oxygen Therapy] [] ASDIRECTED 06/08/20 17:00 Insulin Aspart [NovoLOG] See Protocol SUBCUT TIDAC 06/08/20 19:28 Acetaminophen/HYDROcodone [[place]ide 325-10 MG] 1 tab PO Q6H PRN 06/08/20 21:00 Apixaban [Eliquis] 5 mg PO BID Simvastatin [Zocor] 40 mg PO BEDTIME 06/09/20 Breakfast 2 Gram Sodium Diet [DIET] Fluid Restriction [DIET] 06/09/20 07:30 Levothyroxine [Synthroid] 88 mcg PO ACBREAKFAST 06/09/20 09:00 Amiodarone [Cordarone] 200 mg PO DAILY Aspirin 81 mg PO DAILY Diltiazem [Cardizem CD] 240 mg PO DAILY Pantoprazole [ProTONIX] 40 mg PO DAILY 06/10/20 05:11 BMP [BASIC METABOLIC PANEL,BMP] [CHEM] AM CBC WITH AUTO DIFF [HEME] AM 06/11/20 05:11 BMP [BASIC METABOLIC PANEL,BMP] [CHEM] AM CBC WITH AUTO DIFF [HEME] AM - Plan Plan:: Assessment: 1. Acute decompensated heart failure secondary to medical noncompliance 2. Leukocytosis:resolved 3. normocytic anemia 4. Acute kidney injury w. UTI 5. Past medical history: COPD sciatica, hypertension, chronic opioid use Plan Admit inpatient. Full code. I's and O's strict. Daily weights Diet: 1.5 L fluid restriction. Sodium restriction and heart healthy Anticoagulation: Continue Eliquis GI prophylaxis; pantoprazole 40 daily 1. CHF exacerbation: Only diuresed 320 cc since admission (in AM); given additional 60 lasix this AM; will schedule 40 lasix BID starting tomorrow if diureses not appropriate; however exam has improved as far as lower extremity edema is concerned Still requiring 10 liters; D-DIMER elevated ; CT chest w.o contrast and NM perfusion study ordered for concnrs for PE ; will treat accordingly CTX+Azithromycin for elevated WBC in light of COPD history+ leukocyte esterase noted in Urine ; currently afebrile : continue Recent PCI w.o stents (awaiting outside facility medical records): troponin x3 negative 2. EVERETTE: hold nephrotoxic drugs, continue to monitor in AM; cannot do contrast study, ordered NM Continue abx for possible UTI 3. PMH: DM: SSI+accuchecks TID Sciatica: continue home [place] +1 time dose 1 mg morphine this AM ; continue to monitor o2 requirements and for respiratory distress. Afib/HTN: Continue diltiazem +amiodarone+apixiban: can hold Metoprolol for now if rate controlled; can restart low dose requiring further rate control PRN ; currently DC:100 <Ronit Bernal - Last Filed: 06/11/20 13:38> - Patient Data Vitals - Most Recent: Last Vital Signs Temp 37.1 C 06/11/20 12:00 Pulse 94 06/11/20 09:14 Resp 16 06/11/20 12:00 BP 132/50 L 06/11/20 12:00 Pulse Ox 90 L 06/11/20 12:00 I&O - Last 24 Hours: Intake & Output 06/10/20 06/11/20 06/11/20 22:59 06:59 14:59 Intake Total 1440 450 Output Total 1450 450 Balance -10 0 Lab Results Last 24 Hours: Laboratory Results - last 24 hr 06/10/20 06/11/20 06/11/20 Range/Units 17:31 05:48 05:48 WBC 6.97 (4.0-11.0) K/uL RBC 3.23 L (4.30-5.90) M/uL Hgb 9.1 L (12.0-16.0) g/dL Hct 28.8 L (36.0-46.0) % MCV 89.2 (80.0-98.0) fL MCH 28.2 (27.0-32.0) pg MCHC 31.6 (31.0-37.0) g/dL RDW Std Deviation 50.8 (28.0-62.0) fl RDW Coeff of Batool 16 H (11.0-15.0) % Plt Count 359 (150-400) K/uL MPV 10.10 (7.40-12.00) fL Neut % (Auto) 73.1 (48.0-80.0) % Lymph % (Auto) 14.3 L (16.0-40.0) % Butts % (Auto) 10.0 (0.0-15.0) % Eos % (Auto) 2.3 (0.0-7.0) % Baso % (Auto) 0.3 (0.0-1.5) % Neut # (Auto) 5.1 (1.4-5.7) K/uL Lymph # (Auto) 1.0 (0.6-2.4) K/uL Butts # (Auto) 0.7 (0.0-0.8) K/uL Eos # (Auto) 0.2 (0.0-0.7) K/uL Baso # (Auto) 0.0 (0.0-0.1) K/uL Nucleated RBC % 0.0 /100WBC Nucleated RBCs # 0 K/uL Sodium 140 (136-145) mmol/L Potassium 4.0 (3.5-5.1) mmol/L Chloride 104 (98-107) mmol/L Carbon Dioxide 28.4 (21.0-32.0) mmol/L BUN 52 H (7.0-18.0) mg/dL Creatinine 1.8 H (0.6-1.0) mg/dL Est Cr Clr Drug Dosing 19.93 mL/min Estimated GFR (MDRD) 26.9 ml/min Glucose 109 H (74-106) mg/dL POC Glucose 123 H (60-110) mg/dL Calcium 8.6 (8.5-10.1) mg/dL 06/11/20 06/11/20 Range/Units 06:41 11:41 WBC (4.0-11.0) K/uL RBC (4.30-5.90) M/uL Hgb (12.0-16.0) g/dL Hct (36.0-46.0) % MCV (80.0-98.0) fL MCH (27.0-32.0) pg MCHC (31.0-37.0) g/dL RDW Std Deviation (28.0-62.0) fl RDW Coeff of Batool (11.0-15.0) % Plt Count (150-400) K/uL MPV (7.40-12.00) fL Neut % (Auto) (48.0-80.0) % Lymph % (Auto) (16.0-40.0) % Butts % (Auto) (0.0-15.0) % Eos % (Auto) (0.0-7.0) % Baso % (Auto) (0.0-1.5) % Neut # (Auto) (1.4-5.7) K/uL Lymph # (Auto) (0.6-2.4) K/uL Butts # (Auto) (0.0-0.8) K/uL Eos # (Auto) (0.0-0.7) K/uL Baso # (Auto) (0.0-0.1) K/uL Nucleated RBC % /100WBC Nucleated RBCs # K/uL Sodium (136-145) mmol/L Potassium (3.5-5.1) mmol/L Chloride (98-107) mmol/L Carbon Dioxide (21.0-32.0) mmol/L BUN (7.0-18.0) mg/dL Creatinine (0.6-1.0) mg/dL Est Cr Clr Drug Dosing mL/min Estimated GFR (MDRD) ml/min Glucose (74-106) mg/dL POC Glucose 124 H 129 H (60-110) mg/dL Calcium (8.5-10.1) mg/dL Jake Results Last 24 Hours: Microbiology 06/08/20 13:10 Aerobic Blood Culture - Preliminary Blood - Venous - Lab Draw NO GROWTH AFTER 3 DAYS Anaerobic Blood Culture - Preliminary NO GROWTH AFTER 3 DAYS 06/08/20 13:00 Aerobic Blood Culture - Preliminary Blood - Venous NO GROWTH AFTER 3 DAYS Anaerobic Blood Culture - Preliminary NO GROWTH AFTER 3 DAYS Med Orders - Current: Current Medications Hydrocodone Bitart/Acetaminophen ([place]ide 325-10 Mg) 1 tab PO Q6H PRN PRN Reason: Pain Last Admin: 06/11/20 13:09 Dose: 1 tab Documented by: Amiodarone HCl (Cordarone) 200 mg PO DAILY [facility] Last Admin: 06/11/20 08:52 Dose: 200 mg Documented by: Apixaban (Eliquis) 5 mg PO BID [facility] Last Admin: 06/11/20 08:51 Dose: 5 mg Documented by: Aspirin (Aspirin) 81 mg PO DAILY [facility] Last Admin: 06/11/20 08:51 Dose: 81 mg Documented by: Bisacodyl (Dulcolax) 10 mg RECTAL DAILY PRN PRN Reason: Constipation Diltiazem HCl (Cardizem Cd) 240 mg PO DAILY [facility] Last Admin: 06/11/20 09:14 Dose: 240 mg Documented by: Fluticasone Propionate (Flonase) 0 gm NASBOTH DAILY [facility] Last Admin: 06/11/20 09:06 Dose: 1 spray Documented by: Furosemide (Lasix) 40 mg IVPUSH BIDDIURETIC [facility] Last Admin: 06/11/20 13:09 Dose: 40 mg Documented by: Gabapentin (Neurontin) 300 mg PO TID [facility] Last Admin: 06/11/20 13:09 Dose: 300 mg Documented by: Ceftriaxone Sodium/Dextrose (Rocephin In Dextrose,Iso-Osm 1 Gm/50 Ml) 50 mls @ 100 mls/hr IV Q24H [facility] Last Admin: 06/10/20 20:00 Dose: 100 mls/hr Documented by: Azithromycin 500 mg/ Sodium (Chloride) 250 mls @ 250 mls/hr IV DAILY@2030 [facility] Last Admin: 06/10/20 20:49 Dose: 250 mls/hr Documented by: Insulin Aspart (Novolog) 0 unit SUBCUT TIDAC [facility]; Protocol Last Admin: 06/11/20 11:43 Dose: Not Given Documented by: Levothyroxine Sodium (Synthroid) 88 mcg PO ACBREAKFAST [facility] Last Admin: 06/11/20 06:43 Dose: 88 mcg Documented by: Pantoprazole Sodium (Protonix) 40 mg PO DAILY [facility] Last Admin: 06/11/20 08:51 Dose: 40 mg Documented by: Simvastatin (Zocor) 40 mg PO BEDTIME [facility] Last Admin: 06/10/20 20:00 Dose: 40 mg Documented by: Sodium Chloride (Saline Flush) 10 ml FLUSH ASDIRECTED PRN PRN Reason: Keep Vein Open Last Admin: 06/08/20 12:52 Dose: 10 ml Documented by: Sodium Chloride (Saline Flush) 2.5 ml FLUSH ASDIRECTED PRN PRN Reason: Keep Vein Open Last Admin: 06/08/20 12:52 Dose: 2.5 ml Documented by: Sodium Chloride ([place] Nasal [place]) 0 ml KENRICK Q4H PRN PRN Reason: Congestion Last Admin: 06/11/20 10:07 Dose: 1 sprays(dnu) Documented by: Discontinued Medications Azithromycin (Zithromax) 500 mg IV Q24H [facility] Azithromycin (Zithromax) Confirm Administered Dose 500 mg .ROUTE .STK-MED ONE Stop: 06/08/20 19:52 Last Admin: 06/08/20 20:11 Dose: Not Given Documented by: Azithromycin (Zithromax) 250 mg IV Q24H [facility] Furosemide (Lasix) 20 mg IVPUSH NOW ONE Stop: 06/08/20 13:12 Last Admin: 06/08/20 13:22 Dose: 20 mg Documented by: Furosemide (Lasix) 20 mg IVPUSH NOW ONE Stop: 06/08/20 16:04 Last Admin: 06/08/20 17:28 Dose: Not Given Documented by: Furosemide (Lasix) 20 mg IVPUSH NOW ONE Stop: 06/08/20 17:16 Last Admin: 06/08/20 17:28 Dose: 20 mg Documented by: Furosemide (Lasix) 60 mg IVPUSH NOW ONE Stop: 06/09/20 09:14 Last Admin: 06/09/20 09:45 Dose: 60 mg Documented by: Furosemide (Lasix) 40 mg IVPUSH DAILY [facility] Last Admin: 06/10/20 08:04 Dose: 40 mg Documented by: Hydromorphone HCl (Dilaudid) 1 mg IVPUSH ONETIME ONE Stop: 06/10/20 09:23 Last Admin: 06/10/20 10:10 Dose: 1 mg Documented by: Sodium Chloride (Normal Saline) 1,000 mls @ 999 mls/hr IV STAT ONE Stop: 06/08/20 13:28 Last Admin: 06/08/20 12:52 Dose: 999 mls/hr Documented by: Ceftriaxone Sodium 1 gm/ (Sodium Chloride) 50 mls @ 100 mls/hr IV Q24H [facility] Last Admin: 06/08/20 19:33 Dose: Not Given Documented by: Azithromycin 500 mg/ Sodium (Chloride) 250 mls @ 250 mls/hr IV Q24H [facility] Last Admin: 06/08/20 20:34 Dose: 250 mls/hr Documented by: Sodium Chloride (Normal Saline (Advbag)) Confirm Administered Dose 250 mls @ as directed .ROUTE .STK-MED ONE Stop: 06/08/20 19:52 Last Admin: 06/08/20 20:11 Dose: Not Given Documented by: Azithromycin 500 mg/ Sodium (Chloride) 250 mls @ 250 mls/hr IV Q24H [facility] Morphine Sulfate (Morphine) 1 mg IVPUSH ONETIME ONE Stop: 06/09/20 09:23 Last Admin: 06/09/20 09:46 Dose: 1 mg Documented by: Oxymetazoline HCl (Afrin Original 0.05% Nasal [place]) 0 ml NASBOTH ONETIME ONE Stop: 06/09/20 19:59 Last Admin: 06/09/20 20:31 Dose: 1 spray Documented by: Sepsis Event Note - Focused Exam Vital Signs: Vital Signs Temp Pulse Resp BP BP Pulse Ox 06/11/20 12:00 37.1 C 16 132/50 L 90 L 06/11/20 11:00 24 H 125/42 L 92 L 06/11/20 10:00 17 124/45 L 89 L 06/11/20 09:14 94 125/53 L 06/11/20 09:00 11 L 125/53 L 90 L 06/11/20 08:00 36.5 C 11 L 110/53 L 94 L 06/11/20 07:00 16 91 L 06/11/20 06:00 17 138/62 91 L 06/11/20 05:00 13 121/54 L 93 L 06/11/20 04:00 36.6 C 14 116/55 L 93 L 06/11/20 03:00 14 129/51 L 91 L 06/11/20 02:00 14 135/60 89 L - Plan Plan:: I performed a history and physical exam of the patient and discussed management with resident. I have reviewed the residents note and agree with documented findings and plan unless otherwise specified in my note.
--- NOTE | 2020-06-09 13:57 | NM ---
Perfusion lung scan Technique: 2.2 mCi of technetium 99m MAA was given intravenously. 2 scintigraphic images were obtained. Patient then refused to complete study. Findings: 2 images shows no gross perfusion defects. Impression: 1. Findings as noted above. Diagnostic code #2 This report was dictated in MDT
[2020-06-09] MEDS ORDERED: Oxymetazoline 0.05% Nasal Spray 15 ML Bottle NASBOTH ONE (19:58)
--- NOTE | 2020-06-09 20:01 | PN ---
THC Physician - Brief Progress [id number]/17/2020 19:59[facility] fiorella [place], [place] - DANNIELLE (PAULA) - PRABHA HERNANDEZDate of Service 06/09/2020 19:59HPI/Event s of Note eICU Update NoteNotified patient complaining of nasal congestion with request for spray. Af rin spray ordered [id number] Minor-Routine modifications to care plan (e.g. PRN medications for pain, fever)
[2020-06-09] MEDS ORDERED: Azithromycin 500 MG Vial IV SCH (20:30)
[2020-06-09] MEDS ORDERED: Azithromycin 500 MG in Sodium Chloride 0.9% 250 ML IV SCH (20:30)
[2020-06-09] MEDS: Simvastatin 40 MG Tab PO SCH (20:32)
[2020-06-09] MEDS: Azithromycin 500 MG in Sodium Chloride 0.9% 250 ML IV SCH (20:48)
[2020-06-10] MEDS: Gabapentin 300 MG Cap PO SCH ×3 (05:35→21:00)
[2020-06-10 06:33] LABS: CARBON DIOXIDE,CO2 27.7 mmol/L (21.0-32.0); POTASSIUM,K 4.7 mmol/L (3.5-5.1)
[2020-06-10] MEDS: Insulin Aspart 100 Units/ML 3 ML Pen SUBCUT SCH ×3 (07:35→19:26)
[2020-06-10] MEDS: Levothyroxine 88 MCG Tab PO SCH (07:58)
[2020-06-10] MEDS: Aspirin 81 MG Tab.Chew PO SCH (08:09)
[2020-06-10] MEDS: Diltiazem 120 MG Cap.CD PO SCH (08:10)
[2020-06-10] MEDS: Amiodarone 200 MG Tab PO SCH (08:15)
[2020-06-10] MEDS: Pantoprazole 40 MG Tab.CR PO SCH (08:15)
[2020-06-10] MEDS: Apixaban 5 MG Tab PO SCH ×2 (08:15→20:00)
--- NOTE | 2020-06-10 08:46 | PN ---
THC Physician - Brief Progress [id number]/18/2020 08:43[facility] Traci Saul, SHALONDA [facility] - [facility] PRABHA GIBSONDate of Service 06/10/2020 08:43HPI/Event s of Note eICU Progress [id number] admitted for acute respiratory failure. History obtained from review of EMR.Camera exam: Laying in bed. Vitals monitor reviewed.eICU Recommendations:On review of vitals, HR 50-60s, suggest liberation of rate control medications to allow HR 80-110Given patient is already on anticoagulation, lower suspicion for VTE. D-dimer in and of itself more useful in ruling out than ruling in VTE. Given patient refused to complete V/Q scan, if clinical suspicion of VTE is high, can consider heparin drip with transition to oral warfarin, and lower extremity ultrasound to rule out DV T, else reasonable to continue anticoagulation with apixaban and escalate therapy should patient clin ically deteriorateNo further new recommendations at this timeDefer further diuresis to bedside examin ation/determination of volume statusDVT and GI prophylaxis as appropriate.Thank you for allowing us t o participate in the care of this patient.The above note transcribed with the assistance of dictation software. Please excuse any errors.Interventions Major-Arrhythmia - evaluation and management, Respi ratory failure - evaluation and managementElectronically Signed by: JANNY PARRISH) on 0 08:45
[2020-06-10] MEDS ORDERED: Furosemide 40 MG/4 ML VIAL IVPUSH SCH (09:00)
[2020-06-10] MEDS ORDERED: HYDROmorphone 2 MG/ML Syringe IVPUSH ONE (09:22)
--- NOTE | 2020-06-10 10:38 | CT ---
CT maxillofacial Technique: Multiple axial sections were obtained from below the mandible superiorly through the frontal sinuses. Reconstructed coronal and sagittal images were obtained. Findings: Paranasal sinuses shows minimal mucosal thickening within the inferior maxillary sinuses. Maxillary ostia are patent. Other paranasal sinuses are clear. No mucosal thickening is seen. No acute facial bone fracture is noted. Degenerative change is partially visualized throughout the cervical spine. Impression: 1. Mild mucosal thickening within both inferior maxillary sinuses. 2. Degenerative change is partially visualized throughout the cervical spine. 3. Nothing acute is seen. Diagnostic code #2 This report was dictated in MDT
--- NOTE | 2020-06-10 10:41 | CT ---
CT chest Technique: Multiple axial sections were obtained from above the lung apices inferiorly through the lung bases. Intravenous contrast was not utilized. Reconstructed coronal and sagittal images were reviewed. Findings: Minimal left-sided pleural effusion is seen and small right-sided pleural effusion is present. Scattered lymph nodes within the mediastinum are seen which are felt to be within normal limits. Atherosclerotic calcification is noted within the thoracic aorta and branch vessels without aneurysm. No pericardial thickening is seen. Mild coronary artery calcification is noted. Visualized upper abdominal structures shows no discrete abnormality. Patchy areas of increased density are noted within the left upper chest with lesser change within the upper right chest. Additional areas of increased density are seen within both lung bases. Impression: 1. Small bilateral pleural effusions. Please correlate if patient has any symptoms of CHF. 2. Patchy areas of increased density within both sides of the chest raising the possibility of multifocal pneumonia which can be either bacterial or viral. Diagnostic code #3 This report was dictated in MDT
--- NOTE | 2020-06-10 11:46 | PCM.PN ---
<Saud Hackett - Last Filed: 06/10/20 12:18> - General Info Date of Service: 06/10/20 Subjective Update: Bedside: mentions some nasal congestion Mentions breathing feels the same pain in leg is most concerning for her - Review of Systems General: Reports: No Symptoms HEENT: Reports: No Symptoms Pulmonary: Reports: Cough, Wheezing, Other. Denies: Sputum Cardiovascular: Reports: No Symptoms Gastrointestinal: Reports: No Symptoms Genitourinary: Reports: No Symptoms Musculoskeletal: Reports: Leg Pain, Joint Pain Skin: Reports: No Symptoms Neurological: Reports: No Symptoms - Patient Data Vitals - Most Recent: Last Vital Signs Temp 99.9 F 06/10/20 10:00 Pulse 78 06/10/20 08:10 Resp 16 06/10/20 10:00 BP 133/56 L 06/10/20 10:00 Pulse Ox 86 L 06/10/20 10:00 Weight - Most Recent: 86.5 kg I&O - Last 24 Hours: Intake & Output 06/09/20 06/10/20 06/10/20 22:59 06:59 14:59 Intake Total 120 340 Output Total 250 780 Balance -130 -440 Lab Results Last 24 Hours: Laboratory Results - last 24 hr 06/09/20 06/09/20 06/10/20 Range/Units 11:34 18:01 05:53 WBC (4.0-11.0) K/uL RBC (4.30-5.90) M/uL Hgb (12.0-16.0) g/dL Hct (36.0-46.0) % MCV (80.0-98.0) fL MCH (27.0-32.0) pg MCHC (31.0-37.0) g/dL RDW Std Deviation (28.0-62.0) fl RDW Coeff of Batool (11.0-15.0) % Plt Count (150-400) K/uL MPV (7.40-12.00) fL Neut % (Auto) (48.0-80.0) % Lymph % (Auto) (16.0-40.0) % Storey % (Auto) (0.0-15.0) % Eos % (Auto) (0.0-7.0) % Baso % (Auto) (0.0-1.5) % Neut # (Auto) (1.4-5.7) K/uL Lymph # (Auto) (0.6-2.4) K/uL [place]y # (Auto) (0.0-0.8) K/uL Eos # (Auto) (0.0-0.7) K/uL Baso # (Auto) (0.0-0.1) K/uL Nucleated RBC % /100WBC Nucleated RBCs # K/uL Sodium (136-145) mmol/L Potassium (3.5-5.1) mmol/L Chloride (98-107) mmol/L Carbon Dioxide (21.0-32.0) mmol/L BUN (7.0-18.0) mg/dL Creatinine (0.6-1.0) mg/dL Est Cr Clr Drug Dosing mL/min Estimated GFR (MDRD) ml/min Glucose (74-106) mg/dL POC Glucose 112 H 128 H 104 (60-110) mg/dL Calcium (8.5-10.1) mg/dL 06/10/20 06/10/20 06/10/20 Range/Units 05:54 05:54 11:17 WBC 8.09 (4.0-11.0) K/uL RBC 3.27 L (4.30-5.90) M/uL Hgb 9.3 L (12.0-16.0) g/dL Hct 29.3 L (36.0-46.0) % MCV 89.6 (80.0-98.0) fL MCH 28.4 (27.0-32.0) pg MCHC 31.7 (31.0-37.0) g/dL RDW Std Deviation 51.7 (28.0-62.0) fl RDW Coeff of Batool 16 H (11.0-15.0) % Plt Count 382 (150-400) K/uL MPV 10.60 (7.40-12.00) fL Neut % (Auto) 70.6 (48.0-80.0) % Lymph % (Auto) 18.2 (16.0-40.0) % [place]y % (Auto) 9.1 (0.0-15.0) % Eos % (Auto) 1.9 (0.0-7.0) % Baso % (Auto) 0.2 (0.0-1.5) % Neut # (Auto) 5.7 (1.4-5.7) K/uL Lymph # (Auto) 1.5 (0.6-2.4) K/uL [place] # (Auto) 0.7 (0.0-0.8) K/uL Eos # (Auto) 0.2 (0.0-0.7) K/uL Baso # (Auto) 0.0 (0.0-0.1) K/uL Nucleated RBC % 0.0 /100WBC Nucleated RBCs # 0 K/uL Sodium 140 (136-145) mmol/L Potassium 4.7 (3.5-5.1) mmol/L Chloride 104 (98-107) mmol/L Carbon Dioxide 27.7 (21.0-32.0) mmol/L BUN 49 H (7.0-18.0) mg/dL Creatinine 1.9 H (0.6-1.0) mg/dL Est Cr Clr Drug Dosing 18.88 mL/min Estimated GFR (MDRD) 25.3 ml/min Glucose 105 (74-106) mg/dL POC Glucose 114 H (60-110) mg/dL Calcium 8.9 (8.5-10.1) mg/dL Jake Results Last 24 Hours: Microbiology 06/08/20 13:10 Aerobic Blood Culture - Preliminary Blood - Venous - Lab Draw NO GROWTH AFTER 1 DAY Anaerobic Blood Culture - Preliminary NO GROWTH AFTER 1 DAY 06/08/20 13:00 Aerobic Blood Culture - Preliminary Blood - Venous NO GROWTH AFTER 1 DAY Anaerobic Blood Culture - Preliminary NO GROWTH AFTER 1 DAY Med Orders - Current: Current Medications Hydrocodone Bitart/Acetaminophen ([place] 325-10 Mg) 1 tab PO Q6H PRN PRN Reason: Pain Last Admin: 06/09/20 11:30 Dose: 1 tab Documented by: Amiodarone HCl (Cordarone) 200 mg PO DAILY [facility] Last Admin: 06/10/20 08:15 Dose: 200 mg Documented by: Apixaban (Eliquis) 5 mg PO BID [facility] Last Admin: 06/10/20 08:15 Dose: 5 mg Documented by: Aspirin (Aspirin) 81 mg PO DAILY [facility] Last Admin: 06/10/20 08:09 Dose: 81 mg Documented by: Bisacodyl (Dulcolax) 10 mg RECTAL DAILY PRN PRN Reason: Constipation Diltiazem HCl (Cardizem Cd) 240 mg PO DAILY [facility] Last Admin: 06/10/20 08:10 Dose: 240 mg Documented by: Fluticasone Propionate (Flonase) 0 gm NASBOTH DAILY [facility] Furosemide (Lasix) 40 mg IVPUSH BIDDIURETIC [facility] Gabapentin (Neurontin) 300 mg PO TID [facility] Last Admin: 06/10/20 05:35 Dose: 300 mg Documented by: Ceftriaxone Sodium/Dextrose (Rocephin In Dextrose,Iso-Osm 1 Gm/50 Ml) 50 mls @ 100 mls/hr IV Q24H [facility] Last Admin: 06/09/20 19:58 Dose: 100 mls/hr Documented by: Azithromycin 500 mg/ Sodium (Chloride) 250 mls @ 250 mls/hr IV DAILY@2030 [facility] Last Admin: 06/09/20 20:48 Dose: 250 mls/hr Documented by: Insulin Aspart (Novolog) 0 unit SUBCUT TIDAC [facility]; Protocol Last Admin: 06/10/20 11:21 Dose: Not Given Documented by: Levothyroxine Sodium (Synthroid) 88 mcg PO ACBREAKFAST [facility] Last Admin: 06/10/20 07:58 Dose: 88 mcg Documented by: Pantoprazole Sodium (Protonix) 40 mg PO DAILY [facility] Last Admin: 06/10/20 08:15 Dose: 40 mg Documented by: Simvastatin (Zocor) 40 mg PO BEDTIME [facility] Last Admin: 06/09/20 20:32 Dose: 40 mg Documented by: Sodium Chloride (Saline Flush) 10 ml FLUSH ASDIRECTED PRN PRN Reason: Keep Vein Open Last Admin: 06/08/20 12:52 Dose: 10 ml Documented by: Sodium Chloride (Saline Flush) 2.5 ml FLUSH ASDIRECTED PRN PRN Reason: Keep Vein Open Last Admin: 06/08/20 12:52 Dose: 2.5 ml Documented by: Sodium Chloride ([place] Nasal [place]) 0 ml KENRICK Q4H PRN PRN Reason: Congestion Discontinued Medications Azithromycin (Zithromax) 500 mg IV Q24H [facility] Azithromycin (Zithromax) Confirm Administered Dose 500 mg .ROUTE .[facility]-MED ONE Stop: 06/08/20 19:52 Last Admin: 06/08/20 20:11 Dose: Not Given Documented by: Azithromycin (Zithromax) 250 mg IV Q24H [facility] Furosemide (Lasix) 20 mg IVPUSH NOW ONE Stop: 06/08/20 13:12 Last Admin: 06/08/20 13:22 Dose: 20 mg Documented by: Furosemide (Lasix) 20 mg IVPUSH NOW ONE Stop: 06/08/20 16:04 Last Admin: 06/08/20 17:28 Dose: Not Given Documented by: Furosemide (Lasix) 20 mg IVPUSH NOW ONE Stop: 06/08/20 17:16 Last Admin: 06/08/20 17:28 Dose: 20 mg Documented by: Furosemide (Lasix) 60 mg IVPUSH NOW ONE Stop: 06/09/20 09:14 Last Admin: 06/09/20 09:45 Dose: 60 mg Documented by: Furosemide (Lasix) 40 mg IVPUSH DAILY [facility] Last Admin: 06/10/20 08:04 Dose: 40 mg Documented by: Hydromorphone HCl (Dilaudid) 1 mg IVPUSH ONETIME ONE Stop: 06/10/20 09:23 Last Admin: 06/10/20 10:10 Dose: 1 mg Documented by: Sodium Chloride (Normal Saline) 1,000 mls @ 999 mls/hr IV STAT ONE Stop: 06/08/20 13:28 Last Admin: 06/08/20 12:52 Dose: 999 mls/hr Documented by: Ceftriaxone Sodium 1 gm/ (Sodium Chloride) 50 mls @ 100 mls/hr IV Q24H [facility] Last Admin: 06/08/20 19:33 Dose: Not Given Documented by: Azithromycin 500 mg/ Sodium (Chloride) 250 mls @ 250 mls/hr IV Q24H [facility] Last Admin: 06/08/20 20:34 Dose: 250 mls/hr Documented by: Sodium Chloride (Normal Saline (Advbag)) Confirm Administered Dose 250 mls @ as directed .ROUTE .STK-MED ONE Stop: 06/08/20 19:52 Last Admin: 06/08/20 20:11 Dose: Not Given Documented by: Azithromycin 500 mg/ Sodium (Chloride) 250 mls @ 250 mls/hr IV Q24H [facility] Morphine Sulfate (Morphine) 1 mg IVPUSH ONETIME ONE Stop: 06/09/20 09:23 Last Admin: 06/09/20 09:46 Dose: 1 mg Documented by: Oxymetazoline HCl (Afrin Original 0.05% Nasal [place]) 0 ml NASBOTH ONETIME ONE Stop: 06/09/20 19:59 Last Admin: 06/09/20 20:31 Dose: 1 spray Documented by: - Exam Quality Assessment: Supplemental Oxygen General: Alert, Oriented, Cooperative HEENT: EOMI Neck: Supple Lungs: Other (+end expiratory wheezing w. some crackles in left?right lower lung glover ; still moving air in upper airfields ) Cardiovascular: Regular Rate GI/Abdominal Exam: Soft, Non-Tender Extremities: Other (+1 pitting edema ; interval improvement of lower extremity ) Neurological: No New Focal Deficit Psy/Mental Status: Alert, Normal Affect, Normal Mood Sepsis Event Note - Evaluation Sepsis Screening Result: No Definite Risk - Focused Exam Vital Signs: Vital Signs Temp Pulse Resp BP BP Pulse Ox 06/10/20 10:00 99.9 F 16 133/56 L 86 L 06/10/20 09:00 21 H 125/50 L 86 L 06/10/20 08:10 78 125/50 L 06/10/20 08:00 99.7 F 13 121/54 L 88 L 06/10/20 07:00 16 121/54 L 89 L 06/10/20 06:00 18 97/58 L 91 L 06/10/20 05:00 16 111/49 L 88 L 06/10/20 04:00 98.2 F 16 133/43 L 88 L 06/10/20 03:00 98.6 F 16 119/87 87 L 06/10/20 02:00 17 128/74 85 L 06/10/20 01:00 17 128/74 85 L 06/10/20 00:00 20 119/53 L 87 L - Problem List Review Problem List Initiated/Reviewed/Updated: Yes - My Orders Last 24 Hours: My Active Orders 06/11/20 05:11 BMP [BASIC METABOLIC PANEL,BMP] [CHEM] AM CBC WITH AUTO DIFF [HEME] AM - Plan Plan:: Assessment: 1. Acute decompensated heart failure secondary to medical noncompliance 2. Leukocytosis:resolved 3. normocytic anemia 4. Acute kidney injury w. UTI 5. Past medical history: COPD sciatica, hypertension, chronic opioid use Plan Admit inpatient. Full code. I's and O's strict. Daily weights Diet: 1.5 L fluid restriction. Sodium restriction and heart healthy Anticoagulation: Continue Eliquis GI prophylaxis; pantoprazole 40 daily 1. CHF exacerbation: diuresing well; will make 40 iv lasix bid for and continue to watch (-1270) discussed needing to use Bipap; pt. will try again today; RT informed mentions breathing via nasal passages is difficult; mentions having a history of a nasal fracture s/p repair; ct -chest and ct sinuses ordered ; provide 1 mg Dilaudid prior to imaging (for sciatica nerve pain) CTX+Azithromycin for elevated WBC in light of COPD history+ leukocyte esterase noted in Urine ; currently afebrile : continue Recent PCI w.o stents (awaiting outside facility medical records): troponin x3 negative 2. EVERETTE: hold nephrotoxic drugs, continue to monitor in AM; cannot do contrast study, ordered NM but did not tolerate full study; will continue to monitor Continue abx for possible UTI 3. PMH: DM: SSI+accuchecks TID Sciatica: continue home [place] ; continue to monitor o2 requirements and for respiratory distress. Afib/HTN: Continue diltiazem +amiodarone+apixiban: can hold Metoprolol for now if rate controlled; can restart low dose requiring further rate control PRN ; currently CT:100 <Ronit Bernal - Last Filed: 06/11/20 13:55> - Patient Data Vitals - Most Recent: Last Vital Signs Temp 37.1 C 06/11/20 12:00 Pulse 94 06/11/20 09:14 Resp 16 06/11/20 12:00 BP 132/50 L 06/11/20 12:00 Pulse Ox 90 L 06/11/20 12:00 I&O - Last 24 Hours: Intake & Output 06/10/20 06/11/20 06/11/20 22:59 06:59 14:59 Intake Total 1440 450 Output Total 1450 450 Balance -10 0 Lab Results Last 24 Hours: Laboratory Results - last 24 hr 06/10/20 06/11/20 06/11/20 Range/Units 17:31 05:48 05:48 WBC 6.97 (4.0-11.0) K/uL RBC 3.23 L (4.30-5.90) M/uL Hgb 9.1 L (12.0-16.0) g/dL Hct 28.8 L (36.0-46.0) % MCV 89.2 (80.0-98.0) fL MCH 28.2 (27.0-32.0) pg MCHC 31.6 (31.0-37.0) g/dL RDW Std Deviation 50.8 (28.0-62.0) fl RDW Coeff of Batool 16 H (11.0-15.0) % Plt Count 359 (150-400) K/uL MPV 10.10 (7.40-12.00) fL Neut % (Auto) 73.1 (48.0-80.0) % Lymph % (Auto) 14.3 L (16.0-40.0) % [place]y % (Auto) 10.0 (0.0-15.0) % Eos % (Auto) 2.3 (0.0-7.0) % Baso % (Auto) 0.3 (0.0-1.5) % Neut # (Auto) 5.1 (1.4-5.7) K/uL Lymph # (Auto) 1.0 (0.6-2.4) K/uL [place] # (Auto) 0.7 (0.0-0.8) K/uL Eos # (Auto) 0.2 (0.0-0.7) K/uL Baso # (Auto) 0.0 (0.0-0.1) K/uL Nucleated RBC % 0.0 /100WBC Nucleated RBCs # 0 K/uL Sodium 140 (136-145) mmol/L Potassium 4.0 (3.5-5.1) mmol/L Chloride 104 (98-107) mmol/L Carbon Dioxide 28.4 (21.0-32.0) mmol/L BUN 52 H (7.0-18.0) mg/dL Creatinine 1.8 H (0.6-1.0) mg/dL Est Cr Clr Drug Dosing 19.93 mL/min Estimated GFR (MDRD) 26.9 ml/min Glucose 109 H (74-106) mg/dL POC Glucose 123 H (60-110) mg/dL Calcium 8.6 (8.5-10.1) mg/dL 06/11/20 06/11/20 Range/Units 06:41 11:41 WBC (4.0-11.0) K/uL RBC (4.30-5.90) M/uL Hgb (12.0-16.0) g/dL Hct (36.0-46.0) % MCV (80.0-98.0) fL MCH (27.0-32.0) pg MCHC (31.0-37.0) g/dL RDW Std Deviation (28.0-62.0) fl RDW Coeff of Batool (11.0-15.0) % Plt Count (150-400) K/uL MPV (7.40-12.00) fL Neut % (Auto) (48.0-80.0) % Lymph % (Auto) (16.0-40.0) % [place] % (Auto) (0.0-15.0) % Eos % (Auto) (0.0-7.0) % Baso % (Auto) (0.0-1.5) % Neut # (Auto) (1.4-5.7) K/uL Lymph # (Auto) (0.6-2.4) K/uL [place] # (Auto) (0.0-0.8) K/uL Eos # (Auto) (0.0-0.7) K/uL Baso # (Auto) (0.0-0.1) K/uL Nucleated RBC % /100WBC Nucleated RBCs # K/uL Sodium (136-145) mmol/L Potassium (3.5-5.1) mmol/L Chloride (98-107) mmol/L Carbon Dioxide (21.0-32.0) mmol/L BUN (7.0-18.0) mg/dL Creatinine (0.6-1.0) mg/dL Est Cr Clr Drug Dosing mL/min Estimated GFR (MDRD) ml/min Glucose (74-106) mg/dL POC Glucose 124 H 129 H (60-110) mg/dL Calcium (8.5-10.1) mg/dL Jake Results Last 24 Hours: Microbiology 06/08/20 13:10 Aerobic Blood Culture - Preliminary Blood - Venous - Lab Draw NO GROWTH AFTER 3 DAYS Anaerobic Blood Culture - Preliminary NO GROWTH AFTER 3 DAYS 06/08/20 13:00 Aerobic Blood Culture - Preliminary Blood - Venous NO GROWTH AFTER 3 DAYS Anaerobic Blood Culture - Preliminary NO GROWTH AFTER 3 DAYS Med Orders - Current: Current Medications Hydrocodone Bitart/Acetaminophen ([place] 325-10 Mg) 1 tab PO Q6H PRN PRN Reason: Pain Last Admin: 06/11/20 13:09 Dose: 1 tab Documented by: Amiodarone HCl (Cordarone) 200 mg PO DAILY [facility] Last Admin: 06/11/20 08:52 Dose: 200 mg Documented by: Apixaban (Eliquis) 5 mg PO BID [facility] Last Admin: 06/11/20 08:51 Dose: 5 mg Documented by: Aspirin (Aspirin) 81 mg PO DAILY [facility] Last Admin: 06/11/20 08:51 Dose: 81 mg Documented by: Bisacodyl (Dulcolax) 10 mg RECTAL DAILY PRN PRN Reason: Constipation Diltiazem HCl (Cardizem Cd) 240 mg PO DAILY [facility] Last Admin: 06/11/20 09:14 Dose: 240 mg Documented by: Fluticasone Propionate (Flonase) 0 gm NASBOTH DAILY [facility] Last Admin: 06/11/20 09:06 Dose: 1 spray Documented by: Furosemide (Lasix) 40 mg IVPUSH BIDDIURETIC [facility] Last Admin: 06/11/20 13:09 Dose: 40 mg Documented by: Gabapentin (Neurontin) 300 mg PO TID [facility] Last Admin: 06/11/20 13:09 Dose: 300 mg Documented by: Ceftriaxone Sodium/Dextrose (Rocephin In Dextrose,Iso-Osm 1 Gm/50 Ml) 50 mls @ 100 mls/hr IV Q24H [facility] Last Admin: 06/10/20 20:00 Dose: 100 mls/hr Documented by: Azithromycin 500 mg/ Sodium (Chloride) 250 mls @ 250 mls/hr IV DAILY@2030 [facility] Last Admin: 06/10/20 20:49 Dose: 250 mls/hr Documented by: Insulin Aspart (Novolog) 0 unit SUBCUT TIDAC [facility]; Protocol Last Admin: 06/11/20 11:43 Dose: Not Given Documented by: Levothyroxine Sodium (Synthroid) 88 mcg PO ACBREAKFAST [facility] Last Admin: 06/11/20 06:43 Dose: 88 mcg Documented by: Pantoprazole Sodium (Protonix) 40 mg PO DAILY [facility] Last Admin: 06/11/20 08:51 Dose: 40 mg Documented by: Simvastatin (Zocor) 40 mg PO BEDTIME [facility] Last Admin: 06/10/20 20:00 Dose: 40 mg Documented by: Sodium Chloride (Saline Flush) 10 ml FLUSH ASDIRECTED PRN PRN Reason: Keep Vein Open Last Admin: 06/08/20 12:52 Dose: 10 ml Documented by: Sodium Chloride (Saline Flush) 2.5 ml FLUSH ASDIRECTED PRN PRN Reason: Keep Vein Open Last Admin: 06/08/20 12:52 Dose: 2.5 ml Documented by: Sodium Chloride ([place] Nasal [place]) 0 ml KENRICK Q4H PRN PRN Reason: Congestion Last Admin: 06/11/20 10:07 Dose: 1 sprays(dnu) Documented by: Discontinued Medications Azithromycin (Zithromax) 500 mg IV Q24H [facility] Azithromycin (Zithromax) Confirm Administered Dose 500 mg .ROUTE .[facility]-MED ONE Stop: 06/08/20 19:52 Last Admin: 06/08/20 20:11 Dose: Not Given Documented by: Azithromycin (Zithromax) 250 mg IV Q24H [facility] Furosemide (Lasix) 20 mg IVPUSH NOW ONE Stop: 06/08/20 13:12 Last Admin: 06/08/20 13:22 Dose: 20 mg Documented by: Furosemide (Lasix) 20 mg IVPUSH NOW ONE Stop: 06/08/20 16:04 Last Admin: 06/08/20 17:28 Dose: Not Given Documented by: Furosemide (Lasix) 20 mg IVPUSH NOW ONE Stop: 06/08/20 17:16 Last Admin: 06/08/20 17:28 Dose: 20 mg Documented by: Furosemide (Lasix) 60 mg IVPUSH NOW ONE Stop: 06/09/20 09:14 Last Admin: 06/09/20 09:45 Dose: 60 mg Documented by: Furosemide (Lasix) 40 mg IVPUSH DAILY [facility] Last Admin: 06/10/20 08:04 Dose: 40 mg Documented by: Hydromorphone HCl (Dilaudid) 1 mg IVPUSH ONETIME ONE Stop: 06/10/20 09:23 Last Admin: 06/10/20 10:10 Dose: 1 mg Documented by: Sodium Chloride (Normal Saline) 1,000 mls @ 999 mls/hr IV STAT ONE Stop: 06/08/20 13:28 Last Admin: 06/08/20 12:52 Dose: 999 mls/hr Documented by: Ceftriaxone Sodium 1 gm/ (Sodium Chloride) 50 mls @ 100 mls/hr IV Q24H [facility] Last Admin: 06/08/20 19:33 Dose: Not Given Documented by: Azithromycin 500 mg/ Sodium (Chloride) 250 mls @ 250 mls/hr IV Q24H [facility] Last Admin: 06/08/20 20:34 Dose: 250 mls/hr Documented by: Sodium Chloride (Normal Saline (Advbag)) Confirm Administered Dose 250 mls @ as directed .ROUTE .[facility]-MED ONE Stop: 06/08/20 19:52 Last Admin: 06/08/20 20:11 Dose: Not Given Documented by: Azithromycin 500 mg/ Sodium (Chloride) 250 mls @ 250 mls/hr IV Q24H [facility] Morphine Sulfate (Morphine) 1 mg IVPUSH ONETIME ONE Stop: 06/09/20 09:23 Last Admin: 06/09/20 09:46 Dose: 1 mg Documented by: Oxymetazoline HCl (Afrin Original 0.05% Nasal [place]) 0 ml NASBOTH ONETIME ONE Stop: 06/09/20 19:59 Last Admin: 06/09/20 20:31 Dose: 1 spray Documented by: Sepsis Event Note - Focused Exam Vital Signs: Vital Signs Temp Pulse Resp BP BP Pulse Ox 06/11/20 12:00 37.1 C 16 132/50 L 90 L 06/11/20 11:00 24 H 125/42 L 92 L 06/11/20 10:00 17 124/45 L 89 L 06/11/20 09:14 94 125/53 L 06/11/20 09:00 11 L 125/53 L 90 L 06/11/20 08:00 36.5 C 11 L 110/53 L 94 L 06/11/20 07:00 16 91 L 06/11/20 06:00 17 138/62 91 L 06/11/20 05:00 13 121/54 L 93 L 06/11/20 04:00 36.6 C 14 116/55 L 93 L 06/11/20 03:00 14 129/51 L 91 L 06/11/20 02:00 14 135/60 89 L - Plan Plan:: I performed a history and physical exam of the patient and discussed management with resident. I have reviewed the residents note and agree with documented findings and plan unless otherwise specified in my note.
[2020-06-10] MEDS: Furosemide 40 MG/4 ML VIAL IVPUSH SCH (14:10)
[2020-06-10] MEDS: Acetaminophen/HYDROcodone 325-10 MG Tab PO PRN ×2 (14:12→20:56)
[2020-06-10] MEDS: Fluticasone Propionate Nasal Spray 16 GM Bottle NASBOTH SCH (15:58)
[2020-06-10] MEDS: Sodium Chloride 0.65% Nasal Spray 45 ML Bottle NAS PRN (15:59)
[2020-06-10] MEDS: Simvastatin 40 MG Tab PO SCH (20:00)
[2020-06-10] MEDS: Azithromycin 500 MG in Sodium Chloride 0.9% 250 ML IV SCH (20:49)
[2020-06-11 06:28] LABS: CARBON DIOXIDE,CO2 28.4 mmol/L (21.0-32.0)
[2020-06-11] MEDS: Levothyroxine 88 MCG Tab PO SCH (06:43)
[2020-06-11] MEDS: Acetaminophen/HYDROcodone 325-10 MG Tab PO PRN ×2 (06:43→13:09)
[2020-06-11] MEDS: Gabapentin 300 MG Cap PO SCH ×3 (06:44→21:23)
[2020-06-11] MEDS: Insulin Aspart 100 Units/ML 3 ML Pen SUBCUT SCH ×3 (06:44→18:05)
[2020-06-11] MEDS: Furosemide 40 MG/4 ML VIAL IVPUSH SCH ×2 (08:50→13:09)
[2020-06-11] MEDS: Aspirin 81 MG Tab.Chew PO SCH (08:51)
[2020-06-11] MEDS: Pantoprazole 40 MG Tab.CR PO SCH (08:51)
[2020-06-11] MEDS: Apixaban 5 MG Tab PO SCH ×2 (08:51→20:31)
[2020-06-11] MEDS: Amiodarone 200 MG Tab PO SCH (08:52)
[2020-06-11] MEDS: Fluticasone Propionate Nasal Spray 16 GM Bottle NASBOTH SCH (09:06)
[2020-06-11] MEDS: Diltiazem 120 MG Cap.CD PO SCH (09:14)
[2020-06-11] MEDS: Sodium Chloride 0.65% Nasal Spray 45 ML Bottle NAS PRN (10:07)
--- NOTE | 2020-06-11 11:39 | PCM.PN ---
<Saud Hackett - Last Filed: 06/11/20 12:56> - General Info Date of Service: 06/11/20 Subjective Update: Bedside: no acute complaints; mentions no acute concerns. - Review of Systems General: Reports: No Symptoms HEENT: Reports: Sinus Congestion Pulmonary: Reports: Cough, Sputum. Denies: Wheezing Cardiovascular: Reports: Dyspnea on Exertion Gastrointestinal: Reports: No Symptoms Genitourinary: Reports: No Symptoms Musculoskeletal: Reports: Back Pain, Leg Pain Skin: Reports: No Symptoms Neurological: Reports: No Symptoms - Patient Data Vitals - Most Recent: Last Vital Signs Temp 97.7 F 06/11/20 08:00 Pulse 94 06/11/20 09:14 Resp 24 H 06/11/20 11:00 BP 125/42 L 06/11/20 11:00 Pulse Ox 92 L 06/11/20 11:00 Weight - Most Recent: 86.7 kg I&O - Last 24 Hours: Intake & Output 06/10/20 06/11/20 06/11/20 22:59 06:59 14:59 Intake Total 1440 450 Output Total 1450 450 Balance -10 0 Lab Results Last 24 Hours: Laboratory Results - last 24 hr 06/10/20 06/11/20 06/11/20 Range/Units 17:31 05:48 05:48 WBC 6.97 (4.0-11.0) K/uL RBC 3.23 L (4.30-5.90) M/uL Hgb 9.1 L (12.0-16.0) g/dL Hct 28.8 L (36.0-46.0) % MCV 89.2 (80.0-98.0) fL MCH 28.2 (27.0-32.0) pg MCHC 31.6 (31.0-37.0) g/dL RDW Std Deviation 50.8 (28.0-62.0) fl RDW Coeff of Batool 16 H (11.0-15.0) % Plt Count 359 (150-400) K/uL MPV 10.10 (7.40-12.00) fL Neut % (Auto) 73.1 (48.0-80.0) % Lymph % (Auto) 14.3 L (16.0-40.0) % Mccracken % (Auto) 10.0 (0.0-15.0) % Eos % (Auto) 2.3 (0.0-7.0) % Baso % (Auto) 0.3 (0.0-1.5) % Neut # (Auto) 5.1 (1.4-5.7) K/uL Lymph # (Auto) 1.0 (0.6-2.4) K/uL Mccracken # (Auto) 0.7 (0.0-0.8) K/uL Eos # (Auto) 0.2 (0.0-0.7) K/uL Baso # (Auto) 0.0 (0.0-0.1) K/uL Nucleated RBC % 0.0 /100WBC Nucleated RBCs # 0 K/uL Sodium 140 (136-145) mmol/L Potassium 4.0 (3.5-5.1) mmol/L Chloride 104 (98-107) mmol/L Carbon Dioxide 28.4 (21.0-32.0) mmol/L BUN 52 H (7.0-18.0) mg/dL Creatinine 1.8 H (0.6-1.0) mg/dL Est Cr Clr Drug Dosing 19.93 mL/min Estimated GFR (MDRD) 26.9 ml/min Glucose 109 H (74-106) mg/dL POC Glucose 123 H (60-110) mg/dL Calcium 8.6 (8.5-10.1) mg/dL Jake Results Last 24 Hours: Microbiology 06/08/20 13:10 Aerobic Blood Culture - Preliminary Blood - Venous - Lab Draw NO GROWTH AFTER 2 DAYS Anaerobic Blood Culture - Preliminary NO GROWTH AFTER 2 DAYS 06/08/20 13:00 Aerobic Blood Culture - Preliminary Blood - Venous NO GROWTH AFTER 2 DAYS Anaerobic Blood Culture - Preliminary NO GROWTH AFTER 2 DAYS Med Orders - Current: Current Medications Hydrocodone Bitart/Acetaminophen ([place] 325-10 Mg) 1 tab PO Q6H PRN PRN Reason: Pain Last Admin: 06/11/20 06:43 Dose: 1 tab Documented by: Amiodarone HCl (Cordarone) 200 mg PO DAILY [facility] Last Admin: 06/11/20 08:52 Dose: 200 mg Documented by: Apixaban (Eliquis) 5 mg PO BID [facility] Last Admin: 06/11/20 08:51 Dose: 5 mg Documented by: Aspirin (Aspirin) 81 mg PO DAILY [facility] Last Admin: 06/11/20 08:51 Dose: 81 mg Documented by: Bisacodyl (Dulcolax) 10 mg RECTAL DAILY PRN PRN Reason: Constipation Diltiazem HCl (Cardizem Cd) 240 mg PO DAILY [facility] Last Admin: 06/11/20 09:14 Dose: 240 mg Documented by: Fluticasone Propionate (Flonase) 0 gm NASBOTH DAILY [facility] Last Admin: 06/11/20 09:06 Dose: 1 spray Documented by: Furosemide (Lasix) 40 mg IVPUSH BIDDIURETIC [facility] Last Admin: 06/11/20 08:50 Dose: 40 mg Documented by: Gabapentin (Neurontin) 300 mg PO TID [facility] Last Admin: 06/11/20 06:44 Dose: 300 mg Documented by: Ceftriaxone Sodium/Dextrose (Rocephin In Dextrose,Iso-Osm 1 Gm/50 Ml) 50 mls @ 100 mls/hr IV Q24H [facility] Last Admin: 06/10/20 20:00 Dose: 100 mls/hr Documented by: Azithromycin 500 mg/ Sodium (Chloride) 250 mls @ 250 mls/hr IV DAILY@2030 [facility] Last Admin: 06/10/20 20:49 Dose: 250 mls/hr Documented by: Insulin Aspart (Novolog) 0 unit SUBCUT TIDAC [facility]; Protocol Last Admin: 06/11/20 06:44 Dose: Not Given Documented by: Levothyroxine Sodium (Synthroid) 88 mcg PO ACBREAKFAST [facility] Last Admin: 06/11/20 06:43 Dose: 88 mcg Documented by: Pantoprazole Sodium (Protonix) 40 mg PO DAILY [facility] Last Admin: 06/11/20 08:51 Dose: 40 mg Documented by: Simvastatin (Zocor) 40 mg PO BEDTIME [facility] Last Admin: 06/10/20 20:00 Dose: 40 mg Documented by: Sodium Chloride (Saline Flush) 10 ml FLUSH ASDIRECTED PRN PRN Reason: Keep Vein Open Last Admin: 06/08/20 12:52 Dose: 10 ml Documented by: Sodium Chloride (Saline Flush) 2.5 ml FLUSH ASDIRECTED PRN PRN Reason: Keep Vein Open Last Admin: 06/08/20 12:52 Dose: 2.5 ml Documented by: Sodium Chloride ([place] Nasal [place]) 0 ml KENRICK Q4H PRN PRN Reason: Congestion Last Admin: 06/11/20 10:07 Dose: 1 sprays(dnu) Documented by: Discontinued Medications Azithromycin (Zithromax) 500 mg IV Q24H [facility] Azithromycin (Zithromax) Confirm Administered Dose 500 mg .ROUTE .STK-MED ONE Stop: 06/08/20 19:52 Last Admin: 06/08/20 20:11 Dose: Not Given Documented by: Azithromycin (Zithromax) 250 mg IV Q24H [facility] Furosemide (Lasix) 20 mg IVPUSH NOW ONE Stop: 06/08/20 13:12 Last Admin: 06/08/20 13:22 Dose: 20 mg Documented by: Furosemide (Lasix) 20 mg IVPUSH NOW ONE Stop: 06/08/20 16:04 Last Admin: 06/08/20 17:28 Dose: Not Given Documented by: Furosemide (Lasix) 20 mg IVPUSH NOW ONE Stop: 06/08/20 17:16 Last Admin: 06/08/20 17:28 Dose: 20 mg Documented by: Furosemide (Lasix) 60 mg IVPUSH NOW ONE Stop: 06/09/20 09:14 Last Admin: 06/09/20 09:45 Dose: 60 mg Documented by: Furosemide (Lasix) 40 mg IVPUSH DAILY [facility] Last Admin: 06/10/20 08:04 Dose: 40 mg Documented by: Hydromorphone HCl (Dilaudid) 1 mg IVPUSH ONETIME ONE Stop: 06/10/20 09:23 Last Admin: 06/10/20 10:10 Dose: 1 mg Documented by: Sodium Chloride (Normal Saline) 1,000 mls @ 999 mls/hr IV STAT ONE Stop: 06/08/20 13:28 Last Admin: 06/08/20 12:52 Dose: 999 mls/hr Documented by: Ceftriaxone Sodium 1 gm/ (Sodium Chloride) 50 mls @ 100 mls/hr IV Q24H [facility] Last Admin: 06/08/20 19:33 Dose: Not Given Documented by: Azithromycin 500 mg/ Sodium (Chloride) 250 mls @ 250 mls/hr IV Q24H [facility] Last Admin: 06/08/20 20:34 Dose: 250 mls/hr Documented by: Sodium Chloride (Normal Saline (Advbag)) Confirm Administered Dose 250 mls @ as directed .ROUTE .STK-MED ONE Stop: 06/08/20 19:52 Last Admin: 06/08/20 20:11 Dose: Not Given Documented by: Azithromycin 500 mg/ Sodium (Chloride) 250 mls @ 250 mls/hr IV Q24H [facility] Morphine Sulfate (Morphine) 1 mg IVPUSH ONETIME ONE Stop: 06/09/20 09:23 Last Admin: 06/09/20 09:46 Dose: 1 mg Documented by: Oxymetazoline HCl (Afrin Original 0.05% Nasal [place]) 0 ml NASBOTH ONETIME ONE Stop: 06/09/20 19:59 Last Admin: 06/09/20 20:31 Dose: 1 spray Documented by: - Exam Quality Assessment: Supplemental Oxygen General: Alert, Oriented, Cooperative, No Acute Distress HEENT: EOMI Lungs: Rales Cardiovascular: Regular Rate, Irregular Rhythm GI/Abdominal Exam: Soft, Non-Tender Extremities: Other (trace/+1 pittng edema ) Skin: Warm Neurological: No New Focal Deficit Psy/Mental Status: Alert, Normal Affect, Normal Mood Sepsis Event Note - Evaluation Sepsis Screening Result: No Definite Risk - Focused Exam Vital Signs: Vital Signs Temp Pulse Resp BP BP Pulse Ox 06/11/20 11:00 24 H 125/42 L 92 L 06/11/20 10:00 17 124/45 L 89 L 06/11/20 09:14 94 125/53 L 06/11/20 09:00 11 L 125/53 L 90 L 06/11/20 08:00 97.7 F 11 L 110/53 L 94 L 06/11/20 07:00 16 91 L 06/11/20 06:00 17 138/62 91 L 06/11/20 05:00 13 121/54 L 93 L 06/11/20 04:00 97.8 F 14 116/55 L 93 L 06/11/20 03:00 14 129/51 L 91 L 06/11/20 02:00 14 135/60 89 L 06/11/20 01:00 16 137/57 L 87 L 06/11/20 00:00 98.2 F 13 139/55 L 96 - Problem List Review Problem List Initiated/Reviewed/Updated: Yes - My Orders Last 24 Hours: My Active Orders 06/11/20 11:28 Chest Physiotherapy [RT Chest Physiotherapy] [RC] ASDIRECTED - Plan Plan:: Assessment: 1. Acute decompensated heart failure secondary to medical noncompliance 2. Leukocytosis:resolved 3. normocytic anemia 4. Acute kidney injury w. UTI 5. Past medical history: COPD sciatica, hypertension, chronic opioid use Plan Admit inpatient. Full code. I's and O's strict. Daily weights Diet: 1.5 L fluid restriction. Sodium restriction and heart healthy Anticoagulation: Continue Eliquis GI prophylaxis; pantoprazole 40 daily 1. CHF exacerbation: diuresing well; will make 40 iv lasix bid for and continue to watch 6 L HHF; improving with diuresis; continue to wean when appropriate ct -chest and ct sinuses ordered : small b/l pleural effusions ; patchy areas noted as well; improving clinically Continue CTX+Azithromycin Recent PCI w.o stents (awaiting outside facility medical records): troponin x3 negative 2. EVERETTE: hold nephrotoxic drugs, continue to monitor in AM; cannot do contrast study, ordered NM but did not tolerate full study; will continue to monitor Continue abx for possible UTI 3. PMH: DM: SSI+accuchecks TID Sciatica: continue home [place] ; continue to monitor o2 requirements and for respiratory distress. Afib/HTN: Continue diltiazem +amiodarone+apixiban: can hold Metoprolol for now if rate controlled; can restart low dose requiring further rate control PRN ; currently WI:100 <Ronit Bernal - Last Filed: 06/16/20 20:06> - General Info Subjective Update: I have seen and evaluated the patient and agree with the residents note unless specified in my note - Patient Data Vitals - Most Recent: Last Vital Signs Temp 37.1 C 06/13/20 08:00 Pulse 59 L 06/13/20 09:36 Resp 17 06/13/20 11:00 BP 136/56 L 06/13/20 10:00 Pulse Ox 95 06/13/20 11:00 Med Orders - Current: Current Medications Discontinued Medications Hydrocodone Bitart/Acetaminophen ([place] 325-10 Mg) 1 tab PO Q6H PRN PRN Reason: Pain Last Admin: 06/12/20 17:34 Dose: 1 tab Documented by: Amiodarone HCl (Cordarone) 200 mg PO DAILY [facility] Last Admin: 06/13/20 09:01 Dose: 200 mg Documented by: Apixaban (Eliquis) 5 mg PO BID [facility] Last Admin: 06/13/20 09:01 Dose: 5 mg Documented by: Aspirin (Aspirin) 81 mg PO DAILY [facility] Last Admin: 06/13/20 09:00 Dose: 81 mg Documented by: Azithromycin (Zithromax) 500 mg IV Q24H [facility] Azithromycin (Zithromax) Confirm Administered Dose 500 mg .ROUTE .STK-MED ONE Stop: 06/08/20 19:52 Last Admin: 06/08/20 20:11 Dose: Not Given Documented by: Azithromycin (Zithromax) 250 mg IV Q24H [facility] Bisacodyl (Dulcolax) 10 mg RECTAL DAILY PRN PRN Reason: Constipation Diltiazem HCl (Cardizem Cd) 240 mg PO DAILY [facility] Last Admin: 06/13/20 09:36 Dose: Not Given Documented by: Fluticasone Propionate (Flonase) 0 gm NASBOTH DAILY [facility] Last Admin: 06/13/20 09:02 Dose: 1 spray Documented by: Furosemide (Lasix) 20 mg IVPUSH NOW ONE Stop: 06/08/20 13:12 Last Admin: 06/08/20 13:22 Dose: 20 mg Documented by: Furosemide (Lasix) 20 mg IVPUSH NOW ONE Stop: 06/08/20 16:04 Last Admin: 06/08/20 17:28 Dose: Not Given Documented by: Furosemide (Lasix) 20 mg IVPUSH NOW ONE Stop: 06/08/20 17:16 Last Admin: 06/08/20 17:28 Dose: 20 mg Documented by: Furosemide (Lasix) 60 mg IVPUSH NOW ONE Stop: 06/09/20 09:14 Last Admin: 06/09/20 09:45 Dose: 60 mg Documented by: Furosemide (Lasix) 40 mg IVPUSH DAILY [facility] Last Admin: 06/10/20 08:04 Dose: 40 mg Documented by: Furosemide (Lasix) 40 mg IVPUSH BIDDIURETIC [facility] Last Admin: 06/11/20 13:09 Dose: 40 mg Documented by: Furosemide (Lasix) 20 mg IVPUSH NOW ONE Stop: 06/11/20 19:18 Last Admin: 06/11/20 19:41 Dose: 20 mg Documented by: Furosemide (Lasix) 60 mg IVPUSH BIDDIURETIC [facility] Last Admin: 06/13/20 15:30 Dose: Not Given Documented by: Furosemide (Lasix) 40 mg IVPUSH NOW ONE Stop: 06/12/20 12:40 Last Admin: 06/12/20 12:30 Dose: 40 mg Documented by: Gabapentin (Neurontin) 300 mg PO TID [facility] Last Admin: 06/13/20 15:30 Dose: Not Given Documented by: Hydromorphone HCl (Dilaudid) 1 mg IVPUSH ONETIME ONE Stop: 06/10/20 09:23 Last Admin: 06/10/20 10:10 Dose: 1 mg Documented by: Sodium Chloride (Normal Saline) 1,000 mls @ 999 mls/hr IV STAT ONE Stop: 06/08/20 13:28 Last Admin: 06/08/20 12:52 Dose: 999 mls/hr Documented by: Ceftriaxone Sodium 1 gm/ (Sodium Chloride) 50 mls @ 100 mls/hr IV Q24H [facility] Last Admin: 06/08/20 19:33 Dose: Not Given Documented by: Ceftriaxone Sodium/Dextrose (Rocephin In Dextrose,Iso-Osm 1 Gm/50 Ml) 50 mls @ 100 mls/hr IV Q24H [facility] Last Admin: 06/12/20 20:24 Dose: 100 mls/hr Documented by: Azithromycin 500 mg/ Sodium (Chloride) 250 mls @ 250 mls/hr IV Q24H [facility] Last Admin: 06/08/20 20:34 Dose: 250 mls/hr Documented by: Sodium Chloride (Normal Saline (Advbag)) Confirm Administered Dose 250 mls @ as directed .ROUTE .STK-MED ONE Stop: 06/08/20 19:52 Last Admin: 06/08/20 20:11 Dose: Not Given Documented by: Azithromycin 500 mg/ Sodium (Chloride) 250 mls @ 250 mls/hr IV Q24H [facility] Azithromycin 500 mg/ Sodium (Chloride) 250 mls @ 250 mls/hr IV DAILY@2029 [facility] Last Admin: 06/12/20 21:00 Dose: 250 mls/hr Documented by: Insulin Aspart (Novolog) 0 unit SUBCUT TIDAC [facility]; Protocol Last Admin: 06/13/20 12:52 Dose: 1 unit Documented by: Levofloxacin (Levaquin) 750 mg PO ONETIME ONE Stop: 06/13/20 09:15 Last Admin: 06/13/20 09:45 Dose: 750 mg Documented by: Levothyroxine Sodium (Synthroid) 88 mcg PO ACBREAKFAST [facility] Last Admin: 06/13/20 08:54 Dose: 88 mcg Documented by: Lorazepam (Ativan) 1 mg IVPUSH Q4H PRN PRN Reason: Anxiety Last Admin: 06/12/20 21:56 Dose: 1 mg Documented by: Metolazone (Zaroxolyn) 5 mg PO ONETIME ONE Stop: 06/12/20 10:47 Last Admin: 06/12/20 13:55 Dose: 5 mg Documented by: Morphine Sulfate (Morphine) 1 mg IVPUSH ONETIME ONE Stop: 06/09/20 09:23 Last Admin: 06/09/20 09:46 Dose: 1 mg Documented by: Oxymetazoline HCl (Afrin Original 0.05% Nasal [place]) 0 ml NASBOTH ONETIME ONE Stop: 06/09/20 19:59 Last Admin: 06/09/20 20:31 Dose: 1 spray Documented by: Pantoprazole Sodium (Protonix) 40 mg PO DAILY [facility] Last Admin: 06/13/20 09:02 Dose: 40 mg Documented by: Simvastatin (Zocor) 40 mg PO BEDTIME [facility] Last Admin: 06/12/20 20:25 Dose: 40 mg Documented by: Sodium Chloride (Saline Flush) 10 ml FLUSH ASDIRECTED PRN PRN Reason: Keep Vein Open Last Admin: 06/08/20 12:52 Dose: 10 ml Documented by: Sodium Chloride (Saline Flush) 2.5 ml FLUSH ASDIRECTED PRN PRN Reason: Keep Vein Open Last Admin: 06/08/20 12:52 Dose: 2.5 ml Documented by: Sodium Chloride ([place] Nasal [place]) 0 ml KENRICK Q4H PRN PRN Reason: Congestion Last Admin: 06/11/20 10:07 Dose: 1 sprays(dnu) Documented by: - Problem List & Annotations (1) Pneumonia SNOMED Code(s): 673353271 Code(s): J18.9 - PNEUMONIA, UNSPECIFIED ORGANISM Status: Acute (2) Acute kidney failure SNOMED Code(s): 72587505 Code(s): N17.9 - ACUTE KIDNEY FAILURE, UNSPECIFIED Status: Acute (3) Acute respiratory failure with hypoxia SNOMED Code(s): 24773986, 218552116 Code(s): J96.01 - ACUTE RESPIRATORY FAILURE WITH HYPOXIA Status: Acute (4) Atrial fibrillation SNOMED Code(s): 44027796 Code(s): I48.91 - UNSPECIFIED ATRIAL FIBRILLATION Status: Acute Qualifiers: Atrial fibrillation type: unspecified Qualified Code(s): I48.91 - Unspecified atrial fibrillation (5) CHF exacerbation SNOMED Code(s): 023402446, 95813781543328 Code(s): I50.9 - HEART FAILURE, UNSPECIFIED Status: Acute Qualifiers: Heart failure type: unspecified Qualified Code(s): I50.9 - Heart failure, unspecified
--- NOTE | 2020-06-11 16:22 | PN ---
THC Physician - Brief Progress UmeiECDYLAPLX70/19/2020 15:55[facility] Traci Saul, SHALONDA [facility] - MWN PRABHA GIBSONDate of Service 06/11/2020 15:55HPI/Event s of Note eICU Progress NotePt is a 80 yo F admitted on 06/08 for respiratory failure. She is being di uresed, on empiric antibiotics with Rocephin and Azithromax, and on Eliquis. They tried transitioning her to regular NC this am, but she did not tolerate it and is back on a Salter. She has had 600 cc o f UO this shift and remains on a 1.5 L fluid restriction. Cr today is 1.8 which is improved from 2.0. She continues to refuse BIPAP at HS, but is effectively diuresing. Her HR is still in the 50-60's on Cardizem 240 mg daily. We discussed decreasing the dose, but her HR is only that when she is sleepin g and rises to the high 90's while awake. They are considering options like going home with O2 via NC and/or JOHNY placement. For now, she will remain in the ICU for continued support. Case was discussed with her nurse Mojgan. eICU Recommendations:1) Continue Diuresis as tolerated, consider increase to 40 mg IVP Q 8 hours if no further progress or improved Cr2) Maintain current Cardizem dose for HR in hig h 90's while awake3) Monitor renal function 4) OAC with Eliquis5) Continue course of empiric antibiot ics6) Wean Sal[place] to maintain SpO2 > 90%7) Continue to encourage the possibility of BIPAP at HS8) Con gelatin maker utility JOHNY vs D/C home on O2 with CM planning supportThank you for allowing us to participate in the c are of your patient.Interventions Major-Hypoxemia - evaluation and managementIntermediate-Arrhythmia - evaluation and management, Best-practice therapies (e.g. VTE, beta vinicio, etc.), Communication wi th other healthcare providers and/or family, Hypervolemia - evaluation and management, Infection - ev aluation and management
[2020-06-11] MEDS ORDERED: Furosemide 40 MG/4 ML VIAL IVPUSH ONE (19:17)
[2020-06-11] MEDS: Simvastatin 40 MG Tab PO SCH (20:31)
[2020-06-11] MEDS: Azithromycin 500 MG in Sodium Chloride 0.9% 250 ML IV SCH (20:35)
[2020-06-12] MEDS: Gabapentin 300 MG Cap PO SCH ×3 (05:59→21:21)
[2020-06-12 07:00] LABS: CARBON DIOXIDE,CO2 31.3 mmol/L (21.0-32.0); POTASSIUM,K 3.7 mmol/L (3.5-5.1)
[2020-06-12] MEDS: Insulin Aspart 100 Units/ML 3 ML Pen SUBCUT SCH ×3 (07:45→17:26)
[2020-06-12] MEDS: Levothyroxine 88 MCG Tab PO SCH (07:45)
[2020-06-12] MEDS: Furosemide 40 MG/4 ML VIAL IVPUSH SCH ×2 (07:46→13:56)
[2020-06-12] MEDS: Aspirin 81 MG Tab.Chew PO SCH (08:23)
[2020-06-12] MEDS: Amiodarone 200 MG Tab PO SCH (08:24)
[2020-06-12] MEDS: Apixaban 5 MG Tab PO SCH ×2 (08:24→20:25)
[2020-06-12] MEDS: Fluticasone Propionate Nasal Spray 16 GM Bottle NASBOTH SCH (08:24)
[2020-06-12] MEDS: Pantoprazole 40 MG Tab.CR PO SCH (08:24)
[2020-06-12] MEDS: Acetaminophen/HYDROcodone 325-10 MG Tab PO PRN ×2 (08:25→17:34)
--- NOTE | 2020-06-12 10:34 | PN ---
THC Physician - Brief Progress ExcnIPLDZTVEE61/20/2020 10:32[facility] Traci Saul, SHALONDA - MWN ([facility]) - MWN ICUPRABHA DENTDate of Service 06/12/2020 10:32HPI/Event s of Note eICU Progress [id number] admitted for acute respiratory failure. History obtained from review of EMR.Camera exam: Laying in bed. Vitals monitor reviewed.eICU Recommendations:No further new recomm endations at this timeContinue anticoagulation with eliquisWean oxygen as toleratedContinue diuresis as toleratedSAR vs home with oxygen are reasonable discharge endpoints, as long as patient has close follow up to manage diuretics, creatinine and oxygenDVT and GI prophylaxis as appropriate.Thank you f or allowing us to participate in the care of this patient.The above note transcribed with the assista nce of dictation software. Please excuse any errors.Interventions Major-Respiratory failure - evaluat ion and management
[2020-06-12] MEDS ORDERED: Metolazone 5 MG Tab PO ONE (10:46)
[2020-06-12] MEDS ORDERED: Furosemide 40 MG/4 ML VIAL IVPUSH ONE (12:39)
[2020-06-12] MEDS ORDERED: LORazepam 2 MG/ML SDV IVPUSH PRN (13:07)
--- NOTE | 2020-06-12 15:57 | PCM.PN ---
<Wil Contreras - Last Filed: 06/12/20 16:18> - General Info Date of Service: 06/12/20 Subjective Update: Patient states that she feels better. Denies chest pain, SOB. Denies fever, nausea. - Review of Systems General: Denies: Fever, Weakness Pulmonary: Denies: Shortness of Breath, Pleuritic Chest Pain Cardiovascular: Denies: Chest Pain, Palpitations, Dyspnea on Exertion Gastrointestinal: Denies: Abdominal Pain, Constipation, Decreased Appetite Neurological: Denies: Confusion, Dizziness - Patient Data Vitals - Most Recent: Last Vital Signs Temp 98.6 F 06/12/20 08:00 Pulse 94 06/11/20 09:14 Resp 18 06/12/20 08:00 BP 131/62 06/12/20 07:42 Pulse Ox 95 06/12/20 08:00 Weight - Most Recent: 86.228 kg I&O - Last 24 Hours: Intake & Output 06/12/20 06/12/20 06/12/20 06:59 14:59 22:59 Intake Total 940 Output Total 870 Balance 70 Lab Results Last 24 Hours: Laboratory Results - last 24 hr 06/11/20 06/12/20 06/12/20 Range/Units 17:44 06:03 06:03 WBC 6.54 (4.0-11.0) K/uL RBC 3.11 L (4.30-5.90) M/uL Hgb 8.8 L (12.0-16.0) g/dL Hct 27.7 L (36.0-46.0) % MCV 89.1 (80.0-98.0) fL MCH 28.3 (27.0-32.0) pg MCHC 31.8 (31.0-37.0) g/dL RDW Std Deviation 50.7 (28.0-62.0) fl RDW Coeff of Batool 16 H (11.0-15.0) % Plt Count 348 (150-400) K/uL MPV 10.20 (7.40-12.00) fL Neut % (Auto) 66.7 (48.0-80.0) % Lymph % (Auto) 18.8 (16.0-40.0) % [place] % (Auto) 10.6 (0.0-15.0) % Eos % (Auto) 3.7 (0.0-7.0) % Baso % (Auto) 0.2 (0.0-1.5) % Neut # (Auto) 4.4 (1.4-5.7) K/uL Lymph # (Auto) 1.2 (0.6-2.4) K/uL [place] # (Auto) 0.7 (0.0-0.8) K/uL Eos # (Auto) 0.2 (0.0-0.7) K/uL Baso # (Auto) 0.0 (0.0-0.1) K/uL Nucleated RBC % 0.0 /100WBC Nucleated RBCs # 0 K/uL Sodium 141 (136-145) mmol/L Potassium 3.7 (3.5-5.1) mmol/L Chloride 104 (98-107) mmol/L Carbon Dioxide 31.3 (21.0-32.0) mmol/L BUN 44 H (7.0-18.0) mg/dL Creatinine 1.8 H (0.6-1.0) mg/dL Est Cr Clr Drug Dosing 19.93 mL/min Estimated GFR (MDRD) 26.9 ml/min Glucose 108 H (74-106) mg/dL POC Glucose 138 H (60-110) mg/dL Calcium 8.2 L (8.5-10.1) mg/dL 06/12/20 06/12/20 Range/Units 06:07 11:51 WBC (4.0-11.0) K/uL RBC (4.30-5.90) M/uL Hgb (12.0-16.0) g/dL Hct (36.0-46.0) % MCV (80.0-98.0) fL MCH (27.0-32.0) pg MCHC (31.0-37.0) g/dL RDW Std Deviation (28.0-62.0) fl RDW Coeff of Batool (11.0-15.0) % Plt Count (150-400) K/uL MPV (7.40-12.00) fL Neut % (Auto) (48.0-80.0) % Lymph % (Auto) (16.0-40.0) % [place] % (Auto) (0.0-15.0) % Eos % (Auto) (0.0-7.0) % Baso % (Auto) (0.0-1.5) % Neut # (Auto) (1.4-5.7) K/uL Lymph # (Auto) (0.6-2.4) K/uL [place] # (Auto) (0.0-0.8) K/uL Eos # (Auto) (0.0-0.7) K/uL Baso # (Auto) (0.0-0.1) K/uL Nucleated RBC % /100WBC Nucleated RBCs # K/uL Sodium (136-145) mmol/L Potassium (3.5-5.1) mmol/L Chloride (98-107) mmol/L Carbon Dioxide (21.0-32.0) mmol/L BUN (7.0-18.0) mg/dL Creatinine (0.6-1.0) mg/dL Est Cr Clr Drug Dosing mL/min Estimated GFR (MDRD) ml/min Glucose (74-106) mg/dL POC Glucose 107 118 H (60-110) mg/dL Calcium (8.5-10.1) mg/dL Jake Results Last 24 Hours: Microbiology 06/08/20 13:10 Aerobic Blood Culture - Preliminary Blood - Venous - Lab Draw NO GROWTH AFTER 4 DAYS Anaerobic Blood Culture - Preliminary NO GROWTH AFTER 4 DAYS 06/08/20 13:00 Aerobic Blood Culture - Preliminary Blood - Venous NO GROWTH AFTER 4 DAYS Anaerobic Blood Culture - Preliminary NO GROWTH AFTER 4 DAYS 06/12/20 06:30 C. difficile Antigen & Toxins A,B - Final Stool / Feces Med Orders - Current: Current Medications Hydrocodone Bitart/Acetaminophen ([place] 325-10 Mg) 1 tab PO Q6H PRN PRN Reason: Pain Last Admin: 06/12/20 08:25 Dose: 1 tab Documented by: Amiodarone HCl (Cordarone) 200 mg PO DAILY [facility] Last Admin: 06/12/20 08:24 Dose: 200 mg Documented by: Apixaban (Eliquis) 5 mg PO BID [facility] Last Admin: 06/12/20 08:24 Dose: 5 mg Documented by: Aspirin (Aspirin) 81 mg PO DAILY [facility] Last Admin: 06/12/20 08:23 Dose: 81 mg Documented by: Bisacodyl (Dulcolax) 10 mg RECTAL DAILY PRN PRN Reason: Constipation Diltiazem HCl (Cardizem Cd) 240 mg PO DAILY [facility] Last Admin: 06/11/20 09:14 Dose: 240 mg Documented by: Fluticasone Propionate (Flonase) 0 gm NASBOTH DAILY [facility] Last Admin: 06/12/20 08:24 Dose: 2 spray Documented by: Furosemide (Lasix) 60 mg IVPUSH BIDDIURETIC [facility] Last Admin: 06/12/20 13:56 Dose: 60 mg Documented by: Gabapentin (Neurontin) 300 mg PO TID [facility] Last Admin: 06/12/20 13:59 Dose: 300 mg Documented by: Ceftriaxone Sodium/Dextrose (Rocephin In Dextrose,Iso-Osm 1 Gm/50 Ml) 50 mls @ 100 mls/hr IV Q24H [facility] Last Admin: 06/11/20 19:47 Dose: 100 mls/hr Documented by: Azithromycin 500 mg/ Sodium (Chloride) 250 mls @ 250 mls/hr IV DAILY@2030 [facility] Last Admin: 06/11/20 20:35 Dose: 250 mls/hr Documented by: Insulin Aspart (Novolog) 0 unit SUBCUT TIDAC [facility]; Protocol Last Admin: 06/12/20 11:51 Dose: Not Given Documented by: Levothyroxine Sodium (Synthroid) 88 mcg PO ACBREAKFAST [facility] Last Admin: 06/12/20 07:45 Dose: 88 mcg Documented by: Lorazepam (Ativan) 1 mg IVPUSH Q4H PRN PRN Reason: Anxiety Pantoprazole Sodium (Protonix) 40 mg PO DAILY [facility] Last Admin: 06/12/20 08:24 Dose: 40 mg Documented by: Simvastatin (Zocor) 40 mg PO BEDTIME [facility] Last Admin: 06/11/20 20:31 Dose: 40 mg Documented by: Sodium Chloride (Saline Flush) 10 ml FLUSH ASDIRECTED PRN PRN Reason: Keep Vein Open Last Admin: 06/08/20 12:52 Dose: 10 ml Documented by: Sodium Chloride (Saline Flush) 2.5 ml FLUSH ASDIRECTED PRN PRN Reason: Keep Vein Open Last Admin: 06/08/20 12:52 Dose: 2.5 ml Documented by: Sodium Chloride (Clay Nasal [place]) 0 ml KENRICK Q4H PRN PRN Reason: Congestion Last Admin: 06/11/20 10:07 Dose: 1 sprays(dnu) Documented by: Discontinued Medications Azithromycin (Zithromax) 500 mg IV Q24H MARBELLA Azithromycin (Zithromax) Confirm Administered Dose 500 mg .ROUTE .STK-MED ONE Stop: 06/08/20 19:52 Last Admin: 06/08/20 20:11 Dose: Not Given Documented by: Azithromycin (Zithromax) 250 mg IV Q24H MARBELLA Furosemide (Lasix) 20 mg IVPUSH NOW ONE Stop: 06/08/20 13:12 Last Admin: 06/08/20 13:22 Dose: 20 mg Documented by: Furosemide (Lasix) 20 mg IVPUSH NOW ONE Stop: 06/08/20 16:04 Last Admin: 06/08/20 17:28 Dose: Not Given Documented by: Furosemide (Lasix) 20 mg IVPUSH NOW ONE Stop: 06/08/20 17:16 Last Admin: 06/08/20 17:28 Dose: 20 mg Documented by: Furosemide (Lasix) 60 mg IVPUSH NOW ONE Stop: 06/09/20 09:14 Last Admin: 06/09/20 09:45 Dose: 60 mg Documented by: Furosemide (Lasix) 40 mg IVPUSH DAILY [facility]LLA Last Admin: 06/10/20 08:04 Dose: 40 mg Documented by: Furosemide (Lasix) 40 mg IVPUSH BIDDIURETIC [facility] Last Admin: 06/11/20 13:09 Dose: 40 mg Documented by: Furosemide (Lasix) 20 mg IVPUSH NOW ONE Stop: 06/11/20 19:18 Last Admin: 06/11/20 19:41 Dose: 20 mg Documented by: Furosemide (Lasix) 40 mg IVPUSH NOW ONE Stop: 06/12/20 12:40 Last Admin: 06/12/20 12:30 Dose: 40 mg Documented by: Hydromorphone HCl (Dilaudid) 1 mg IVPUSH ONETIME ONE Stop: 06/10/20 09:23 Last Admin: 06/10/20 10:10 Dose: 1 mg Documented by: Sodium Chloride (Normal Saline) 1,000 mls @ 999 mls/hr IV STAT ONE Stop: 06/08/20 13:28 Last Admin: 06/08/20 12:52 Dose: 999 mls/hr Documented by: Ceftriaxone Sodium 1 gm/ (Sodium Chloride) 50 mls @ 100 mls/hr IV Q24H [facility] Last Admin: 06/08/20 19:33 Dose: Not Given Documented by: Azithromycin 500 mg/ Sodium (Chloride) 250 mls @ 250 mls/hr IV Q24H MARBELLA Last Admin: 06/08/20 20:34 Dose: 250 mls/hr Documented by: Sodium Chloride (Normal Saline (Advbag)) Confirm Administered Dose 250 mls @ as directed .ROUTE .STK-MED ONE Stop: 06/08/20 19:52 Last Admin: 06/08/20 20:11 Dose: Not Given Documented by: Azithromycin 500 mg/ Sodium (Chloride) 250 mls @ 250 mls/hr IV Q24H [facility] Metolazone (Zaroxolyn) 5 mg PO ONETIME ONE Stop: 06/12/20 10:47 Last Admin: 06/12/20 13:55 Dose: 5 mg Documented by: Morphine Sulfate (Morphine) 1 mg IVPUSH ONETIME ONE Stop: 06/09/20 09:23 Last Admin: 06/09/20 09:46 Dose: 1 mg Documented by: Oxymetazoline HCl (Afrin Original 0.05% Nasal [place]) 0 ml NASBOTH ONETIME ONE Stop: 06/09/20 19:59 Last Admin: 06/09/20 20:31 Dose: 1 spray Documented by: - Exam General: Alert, Oriented Lungs: Clear to Auscultation, Normal Respiratory Effort Cardiovascular: Regular Rate, Regular Rhythm GI/Abdominal Exam: Soft, Non-Tender, No Distention Back Exam: No: CVA Tenderness (L), CVA Tenderness (R) Sepsis Event Note - Evaluation Sepsis Screening Result: No Definite Risk - Focused Exam Vital Signs: Vital Signs Temp Resp BP Pulse Ox 06/12/20 08:00 98.6 F 18 95 06/12/20 07:42 98.9 F 18 131/62 92 L 06/12/20 07:00 17 131/62 93 L 06/12/20 06:00 19 109/58 L 94 L 06/12/20 05:00 15 123/54 L 93 L 06/12/20 04:00 98.6 F 16 121/56 L 94 L - Problem List Review Problem List Initiated/Reviewed/Updated: Yes - My Orders Last 24 Hours: My Active Orders 06/12/20 13:07 LORazepam [Ativan] 1 mg IVPUSH Q4H PRN 06/12/20 13:15 Communication Order [RC] DAILY - Plan Plan:: CHF exacerbation: 60 IV lasix bid, strict I&O, Low sodium diet, fluid restrict 1500 Suspected pneumonia- COPD hx, Azithromycin and ceftriaxone for suspected infection. O2 support to maintain sats above 88%. Currently on 6L [place]: Creat 1.8 hold nephrotoxic drugs, continue to monitor in AM DM: SSI Sciatica: continue home [place] ; continue to monitor o2 requirements and for res piratory distress. Afib/HTN: Continue diltiazem, amiodarone, Eliquis <Ronit Bernal - Last Filed: 06/13/20 17:15> - Patient Data Vitals - Most Recent: Last Vital Signs Temp 37.1 C 06/13/20 08:00 Pulse 59 L 06/13/20 09:36 Resp 17 06/13/20 11:00 BP 136/56 L 06/13/20 10:00 Pulse Ox 95 06/13/20 11:00 I&O - Last 24 Hours: Intake & Output 06/13/20 06/13/20 06/13/20 06:59 14:59 22:59 Intake Total 880 590 Output Total 1650 1500 Balance -770 -910 Lab Results Last 24 Hours: Laboratory Results - last 24 hr 06/12/20 06/13/20 06/13/20 Range/Units 17:22 05:05 05:05 WBC 5.35 (4.0-11.0) K/uL RBC 3.20 L (4.30-5.90) M/uL Hgb 9.0 L (12.0-16.0) g/dL Hct 28.7 L (36.0-46.0) % MCV 89.7 (80.0-98.0) fL MCH 28.1 (27.0-32.0) pg MCHC 31.4 (31.0-37.0) g/dL RDW Std Deviation 51.0 (28.0-62.0) fl RDW Coeff of Batool 16 H (11.0-15.0) % Plt Count 345 (150-400) K/uL MPV 9.90 (7.40-12.00) fL Neut % (Auto) 59.2 (48.0-80.0) % Lymph % (Auto) 23.2 (16.0-40.0) % [place] % (Auto) 13.6 (0.0-15.0) % Eos % (Auto) 3.6 (0.0-7.0) % Baso % (Auto) 0.4 (0.0-1.5) % Neut # (Auto) 3.2 (1.4-5.7) K/uL Lymph # (Auto) 1.2 (0.6-2.4) K/uL [place] # (Auto) 0.7 (0.0-0.8) K/uL Eos # (Auto) 0.2 (0.0-0.7) K/uL Baso # (Auto) 0.0 (0.0-0.1) K/uL Nucleated RBC % 0.0 /100WBC Nucleated RBCs # 0 K/uL Sodium 143 (136-145) mmol/L Potassium 4.0 (3.5-5.1) mmol/L Chloride 104 (98-107) mmol/L Carbon Dioxide 33.1 H (21.0-32.0) mmol/L BUN 38 H (7.0-18.0) mg/dL Creatinine 1.7 H (0.6-1.0) mg/dL Est Cr Clr Drug Dosing 21.10 mL/min Estimated GFR (MDRD) 28.8 ml/min Glucose 107 H (74-106) mg/dL POC Glucose 139 H (60-110) mg/dL Calcium 8.8 (8.5-10.1) mg/dL 06/13/20 06/13/20 Range/Units 05:48 11:55 WBC (4.0-11.0) K/uL RBC (4.30-5.90) M/uL Hgb (12.0-16.0) g/dL Hct (36.0-46.0) % MCV (80.0-98.0) fL MCH (27.0-32.0) pg MCHC (31.0-37.0) g/dL RDW Std Deviation (28.0-62.0) fl RDW Coeff of Batool (11.0-15.0) % Plt Count (150-400) K/uL MPV (7.40-12.00) fL Neut % (Auto) (48.0-80.0) % Lymph % (Auto) (16.0-40.0) % [place] % (Auto) (0.0-15.0) % Eos % (Auto) (0.0-7.0) % Baso % (Auto) (0.0-1.5) % Neut # (Auto) (1.4-5.7) K/uL Lymph # (Auto) (0.6-2.4) K/uL [place] # (Auto) (0.0-0.8) K/uL Eos # (Auto) (0.0-0.7) K/uL Baso # (Auto) (0.0-0.1) K/uL Nucleated RBC % /100WBC Nucleated RBCs # K/uL Sodium (136-145) mmol/L Potassium (3.5-5.1) mmol/L Chloride (98-107) mmol/L Carbon Dioxide (21.0-32.0) mmol/L BUN (7.0-18.0) mg/dL Creatinine (0.6-1.0) mg/dL Est Cr Clr Drug Dosing mL/min Estimated GFR (MDRD) ml/min Glucose (74-106) mg/dL POC Glucose 118 H 184 H (60-110) mg/dL Calcium (8.5-10.1) mg/dL Jake Results Last 24 Hours: Microbiology 06/08/20 13:10 Aerobic Blood Culture - Final Blood - Venous - Lab Draw NO GROWTH AFTER 5 DAYS Anaerobic Blood Culture - Final NO GROWTH AFTER 5 DAYS 06/08/20 13:00 Aerobic Blood Culture - Final Blood - Venous NO GROWTH AFTER 5 DAYS Anaerobic Blood Culture - Final NO GROWTH AFTER 5 DAYS Med Orders - Current: Current Medications Discontinued Medications Hydrocodone Bitart/Acetaminophen ([place] 325-10 Mg) 1 tab PO Q6H PRN PRN Reason: Pain Last Admin: 06/12/20 17:34 Dose: 1 tab Documented by: Amiodarone HCl (Cordarone) 200 mg PO DAILY [facility] Last Admin: 06/13/20 09:01 Dose: 200 mg Documented by: Apixaban (Eliquis) 5 mg PO BID [facility] Last Admin: 06/13/20 09:01 Dose: 5 mg Documented by: Aspirin (Aspirin) 81 mg PO DAILY [facility] Last Admin: 06/13/20 09:00 Dose: 81 mg Documented by: Azithromycin (Zithromax) 500 mg IV Q24H [facility] Azithromycin (Zithromax) Confirm Administered Dose 500 mg .ROUTE .STK-MED ONE Stop: 06/08/20 19:52 Last Admin: 06/08/20 20:11 Dose: Not Given Documented by: Azithromycin (Zithromax) 250 mg IV Q24H [facility] Bisacodyl (Dulcolax) 10 mg RECTAL DAILY PRN PRN Reason: Constipation Diltiazem HCl (Cardizem Cd) 240 mg PO DAILY [facility] Last Admin: 06/13/20 09:36 Dose: Not Given Documented by: Fluticasone Propionate (Flonase) 0 gm NASBOTH DAILY [facility] Last Admin: 06/13/20 09:02 Dose: 1 spray Documented by: Furosemide (Lasix) 20 mg IVPUSH NOW ONE Stop: 06/08/20 13:12 Last Admin: 06/08/20 13:22 Dose: 20 mg Documented by: Furosemide (Lasix) 20 mg IVPUSH NOW ONE Stop: 06/08/20 16:04 Last Admin: 06/08/20 17:28 Dose: Not Given Documented by: Furosemide (Lasix) 20 mg IVPUSH NOW ONE Stop: 06/08/20 17:16 Last Admin: 06/08/20 17:28 Dose: 20 mg Documented by: Furosemide (Lasix) 60 mg IVPUSH NOW ONE Stop: 06/09/20 09:14 Last Admin: 06/09/20 09:45 Dose: 60 mg Documented by: Furosemide (Lasix) 40 mg IVPUSH DAILY [facility] Last Admin: 06/10/20 08:04 Dose: 40 mg Documented by: Furosemide (Lasix) 40 mg IVPUSH BIDDIURETIC [facility] Last Admin: 06/11/20 13:09 Dose: 40 mg Documented by: Furosemide (Lasix) 20 mg IVPUSH NOW ONE Stop: 06/11/20 19:18 Last Admin: 06/11/20 19:41 Dose: 20 mg Documented by: Furosemide (Lasix) 60 mg IVPUSH BIDDIURETIC [facility] Last Admin: 06/13/20 15:30 Dose: Not Given Documented by: Furosemide (Lasix) 40 mg IVPUSH NOW ONE Stop: 06/12/20 12:40 Last Admin: 06/12/20 12:30 Dose: 40 mg Documented by: Gabapentin (Neurontin) 300 mg PO TID [facility] Last Admin: 06/13/20 15:30 Dose: Not Given Documented by: Hydromorphone HCl (Dilaudid) 1 mg IVPUSH ONETIME ONE Stop: 06/10/20 09:23 Last Admin: 06/10/20 10:10 Dose: 1 mg Documented by: Sodium Chloride (Normal Saline) 1,000 mls @ 999 mls/hr IV STAT ONE Stop: 06/08/20 13:28 Last Admin: 06/08/20 12:52 Dose: 999 mls/hr Documented by: Ceftriaxone Sodium 1 gm/ (Sodium Chloride) 50 mls @ 100 mls/hr IV Q24H [facility] Last Admin: 06/08/20 19:33 Dose: Not Given Documented by: Ceftriaxone Sodium/Dextrose (Rocephin In Dextrose,Iso-Osm 1 Gm/50 Ml) 50 mls @ 100 mls/hr IV Q24H [facility] Last Admin: 06/12/20 20:24 Dose: 100 mls/hr Documented by: Azithromycin 500 mg/ Sodium (Chloride) 250 mls @ 250 mls/hr IV Q24H [facility] Last Admin: 06/08/20 20:34 Dose: 250 mls/hr Documented by: Sodium Chloride (Normal Saline (Advbag)) Confirm Administered Dose 250 mls @ as directed .ROUTE .STK-MED ONE Stop: 06/08/20 19:52 Last Admin: 06/08/20 20:11 Dose: Not Given Documented by: Azithromycin 500 mg/ Sodium (Chloride) 250 mls @ 250 mls/hr IV Q24H [facility] Azithromycin 500 mg/ Sodium (Chloride) 250 mls @ 250 mls/hr IV DAILY@2029 [facility] Last Admin: 06/12/20 21:00 Dose: 250 mls/hr Documented by: Insulin Aspart (Novolog) 0 unit SUBCUT TIDAC [facility]; Protocol Last Admin: 06/13/20 12:52 Dose: 1 unit Documented by: Levofloxacin (Levaquin) 750 mg PO ONETIME ONE Stop: 06/13/20 09:15 Last Admin: 06/13/20 09:45 Dose: 750 mg Documented by: Levothyroxine Sodium (Synthroid) 88 mcg PO ACBREAKFAST [facility] Last Admin: 06/13/20 08:54 Dose: 88 mcg Documented by: Lorazepam (Ativan) 1 mg IVPUSH Q4H PRN PRN Reason: Anxiety Last Admin: 06/12/20 21:56 Dose: 1 mg Documented by: Metolazone (Zaroxolyn) 5 mg PO ONETIME ONE Stop: 06/12/20 10:47 Last Admin: 06/12/20 13:55 Dose: 5 mg Documented by: Morphine Sulfate (Morphine) 1 mg IVPUSH ONETIME ONE Stop: 06/09/20 09:23 Last Admin: 06/09/20 09:46 Dose: 1 mg Documented by: Oxymetazoline HCl (Afrin Original 0.05% Nasal [place]) 0 ml NASBOTH ONETIME ONE Stop: 06/09/20 19:59 Last Admin: 06/09/20 20:31 Dose: 1 spray Documented by: Pantoprazole Sodium (Protonix) 40 mg PO DAILY [facility] Last Admin: 06/13/20 09:02 Dose: 40 mg Documented by: Simvastatin (Zocor) 40 mg PO BEDTIME [facility] Last Admin: 06/12/20 20:25 Dose: 40 mg Documented by: Sodium Chloride (Saline Flush) 10 ml FLUSH ASDIRECTED PRN PRN Reason: Keep Vein Open Last Admin: 06/08/20 12:52 Dose: 10 ml Documented by: Sodium Chloride (Saline Flush) 2.5 ml FLUSH ASDIRECTED PRN PRN Reason: Keep Vein Open Last Admin: 06/08/20 12:52 Dose: 2.5 ml Documented by: Sodium Chloride (Clay Nasal [place]) 0 ml KENRICK Q4H PRN PRN Reason: Congestion Last Admin: 06/11/20 10:07 Dose: 1 sprays(dnu) Documented by: Sepsis Event Note - Focused Exam Vital Signs: Vital Signs Temp Pulse Resp BP Pulse Ox 06/13/20 11:00 17 95 06/13/20 10:00 16 136/56 L 92 L 06/13/20 09:36 59 L 06/13/20 09:00 15 130/62 94 L 06/13/20 08:00 37.1 C 17 118/64 93 L 06/13/20 07:00 16 122/59 L 94 L 06/13/20 06:00 16 121/63 94 L - Problem List & Annotations (1) Pneumonia SNOMED Code(s): 046039596 Code(s): J18.9 - PNEUMONIA, UNSPECIFIED ORGANISM Status: Acute (2) Acute kidney failure SNOMED Code(s): 54601456 Code(s): N17.9 - ACUTE KIDNEY FAILURE, UNSPECIFIED Status: Acute (3) Acute respiratory failure with hypoxia SNOMED Code(s): 22931693, 029772976 Code(s): J96.01 - ACUTE RESPIRATORY FAILURE WITH HYPOXIA Status: Acute (4) Atrial fibrillation SNOMED Code(s): 17912362 Code(s): I48.91 - UNSPECIFIED ATRIAL FIBRILLATION Status: Acute Qualifiers: Atrial fibrillation type: unspecified Qualified Code(s): I48.91 - Unspecified atrial fibrillation (5) CHF exacerbation SNOMED Code(s): 110124728, 33207026907641 Code(s): I50.9 - HEART FAILURE, UNSPECIFIED Status: Acute Qualifiers: Heart failure type: unspecified Qualified Code(s): I50.9 - Heart failure, unspecified
[2020-06-12] MEDS: Diltiazem 120 MG Cap.CD PO SCH (20:23)
[2020-06-12] MEDS: Simvastatin 40 MG Tab PO SCH (20:25)
[2020-06-12] MEDS: Azithromycin 500 MG in Sodium Chloride 0.9% 250 ML IV SCH (21:00)
[2020-06-13] MEDS: Gabapentin 300 MG Cap PO SCH ×2 (05:28→15:30)
[2020-06-13 06:04] LABS: CARBON DIOXIDE,CO2 33.1 mmol/L (21.0-32.0)
[2020-06-13] MEDS: Insulin Aspart 100 Units/ML 3 ML Pen SUBCUT SCH ×2 (07:30→12:52)
[2020-06-13] MEDS: Levothyroxine 88 MCG Tab PO SCH (08:54)
[2020-06-13] MEDS: Furosemide 40 MG/4 ML VIAL IVPUSH SCH ×2 (08:55→15:30)
[2020-06-13] MEDS: Aspirin 81 MG Tab.Chew PO SCH (09:00)
[2020-06-13] MEDS: Amiodarone 200 MG Tab PO SCH (09:01)
[2020-06-13] MEDS: Apixaban 5 MG Tab PO SCH (09:01)
[2020-06-13] MEDS: Pantoprazole 40 MG Tab.CR PO SCH (09:02)
[2020-06-13] MEDS: Fluticasone Propionate Nasal Spray 16 GM Bottle NASBOTH SCH (09:02)
[2020-06-13] MEDS ORDERED: Levofloxacin 250 MG Tab PO ONE (09:14)
[2020-06-13] MEDS: Diltiazem 120 MG Cap.CD PO SCH (09:36)
[2020-06-13 09:37] VITALS: PULSE 59
[2020-06-13 10:04] VITALS: BP 136/56
--- NOTE | 2020-06-13 11:34 | PCM.PN ---
- General Info Date of Service: 06/13/20 Admission Dx/Problem (Free Text): Admission Diagnosis/Problem Admission Diagnosis/Problem Congestive heart failure Subjective Update: Patient states that she feels better. Denies chest pain, SOB. Denies fever, nausea. patient was finally using BiPAP overnight, currently between 2-3 L of nasal cannula oxygen - Review of Systems General: Denies: Fever, Weakness Pulmonary: Denies: Shortness of Breath Cardiovascular: Denies: Chest Pain, Palpitations, Dyspnea on Exertion Gastrointestinal: Reports: Diarrhea (after use of suppository). Denies: Abdominal Pain, Constipation, Decreased Appetite Genitourinary: Denies: Dysuria, Frequency, Burning - Patient Data Vitals - Most Recent: Last Vital Signs Temp 37.1 C 06/13/20 08:00 Pulse 59 L 06/13/20 09:36 Resp 17 06/13/20 11:00 BP 136/56 L 06/13/20 10:00 Pulse Ox 95 06/13/20 11:00 Weight - Most Recent: 85.094 kg I&O - Last 24 Hours: Intake & Output 06/12/20 06/13/20 06/13/20 22:59 06:59 14:59 Intake Total 720 880 Output Total 2200 1650 Balance -1480 -770 Lab Results Last 24 Hours: Laboratory Results - last 24 hr 06/12/20 06/12/20 06/13/20 Range/Units 11:51 17:22 05:05 WBC 5.35 (4.0-11.0) K/uL RBC 3.20 L (4.30-5.90) M/uL Hgb 9.0 L (12.0-16.0) g/dL Hct 28.7 L (36.0-46.0) % MCV 89.7 (80.0-98.0) fL MCH 28.1 (27.0-32.0) pg MCHC 31.4 (31.0-37.0) g/dL RDW Std Deviation 51.0 (28.0-62.0) fl RDW Coeff of Batool 16 H (11.0-15.0) % Plt Count 345 (150-400) K/uL MPV 9.90 (7.40-12.00) fL Neut % (Auto) 59.2 (48.0-80.0) % Lymph % (Auto) 23.2 (16.0-40.0) % [place] % (Auto) 13.6 (0.0-15.0) % Eos % (Auto) 3.6 (0.0-7.0) % Baso % (Auto) 0.4 (0.0-1.5) % Neut # (Auto) 3.2 (1.4-5.7) K/uL Lymph # (Auto) 1.2 (0.6-2.4) K/uL [place] # (Auto) 0.7 (0.0-0.8) K/uL Eos # (Auto) 0.2 (0.0-0.7) K/uL Baso # (Auto) 0.0 (0.0-0.1) K/uL Nucleated RBC % 0.0 /100WBC Nucleated RBCs # 0 K/uL Sodium (136-145) mmol/L Potassium (3.5-5.1) mmol/L Chloride (98-107) mmol/L Carbon Dioxide (21.0-32.0) mmol/L BUN (7.0-18.0) mg/dL Creatinine (0.6-1.0) mg/dL Est Cr Clr Drug Dosing mL/min Estimated GFR (MDRD) ml/min Glucose (74-106) mg/dL POC Glucose 118 H 139 H (60-110) mg/dL Calcium (8.5-10.1) mg/dL 06/13/20 06/13/20 Range/Units 05:05 05:48 WBC (4.0-11.0) K/uL RBC (4.30-5.90) M/uL Hgb (12.0-16.0) g/dL Hct (36.0-46.0) % MCV (80.0-98.0) fL MCH (27.0-32.0) pg MCHC (31.0-37.0) g/dL RDW Std Deviation (28.0-62.0) fl RDW Coeff of Batool (11.0-15.0) % Plt Count (150-400) K/uL MPV (7.40-12.00) fL Neut % (Auto) (48.0-80.0) % Lymph % (Auto) (16.0-40.0) % [place] % (Auto) (0.0-15.0) % Eos % (Auto) (0.0-7.0) % Baso % (Auto) (0.0-1.5) % Neut # (Auto) (1.4-5.7) K/uL Lymph # (Auto) (0.6-2.4) K/uL [place] # (Auto) (0.0-0.8) K/uL Eos # (Auto) (0.0-0.7) K/uL Baso # (Auto) (0.0-0.1) K/uL Nucleated RBC % /100WBC Nucleated RBCs # K/uL Sodium 143 (136-145) mmol/L Potassium 4.0 (3.5-5.1) mmol/L Chloride 104 (98-107) mmol/L Carbon Dioxide 33.1 H (21.0-32.0) mmol/L BUN 38 H (7.0-18.0) mg/dL Creatinine 1.7 H (0.6-1.0) mg/dL Est Cr Clr Drug Dosing 21.10 mL/min Estimated GFR (MDRD) 28.8 ml/min Glucose 107 H (74-106) mg/dL POC Glucose 118 H (60-110) mg/dL Calcium 8.8 (8.5-10.1) mg/dL Jake Results Last 24 Hours: Microbiology 06/08/20 13:10 Aerobic Blood Culture - Preliminary Blood - Venous - Lab Draw NO GROWTH AFTER 4 DAYS Anaerobic Blood Culture - Preliminary NO GROWTH AFTER 4 DAYS 06/08/20 13:00 Aerobic Blood Culture - Preliminary Blood - Venous NO GROWTH AFTER 4 DAYS Anaerobic Blood Culture - Preliminary NO GROWTH AFTER 4 DAYS 06/12/20 06:30 C. difficile Antigen & Toxins A,B - Final Stool / Feces Med Orders - Current: Current Medications Hydrocodone Bitart/Acetaminophen ([place] 325-10 Mg) 1 tab PO Q6H PRN PRN Reason: Pain Last Admin: 06/12/20 17:34 Dose: 1 tab Documented by: Amiodarone HCl (Cordarone) 200 mg PO DAILY [facility] Last Admin: 06/13/20 09:01 Dose: 200 mg Documented by: Apixaban (Eliquis) 5 mg PO BID [facility] Last Admin: 06/13/20 09:01 Dose: 5 mg Documented by: Aspirin (Aspirin) 81 mg PO DAILY [facility] Last Admin: 06/13/20 09:00 Dose: 81 mg Documented by: Bisacodyl (Dulcolax) 10 mg RECTAL DAILY PRN PRN Reason: Constipation Diltiazem HCl (Cardizem Cd) 240 mg PO DAILY [facility] Last Admin: 06/13/20 09:36 Dose: Not Given Documented by: Fluticasone Propionate (Flonase) 0 gm NASBOTH DAILY [facility] Last Admin: 06/13/20 09:02 Dose: 1 spray Documented by: Furosemide (Lasix) 60 mg IVPUSH BIDDIURETIC [facility] Last Admin: 06/13/20 08:55 Dose: 60 mg Documented by: Gabapentin (Neurontin) 300 mg PO TID [facility] Last Admin: 06/13/20 05:28 Dose: 300 mg Documented by: Insulin Aspart (Novolog) 0 unit SUBCUT TIDAC [facility]; Protocol Last Admin: 06/13/20 07:30 Dose: Not Given Documented by: Levothyroxine Sodium (Synthroid) 88 mcg PO ACBREAKFAST [facility] Last Admin: 06/13/20 08:54 Dose: 88 mcg Documented by: Lorazepam (Ativan) 1 mg IVPUSH Q4H PRN PRN Reason: Anxiety Last Admin: 06/12/20 21:56 Dose: 1 mg Documented by: Pantoprazole Sodium (Protonix) 40 mg PO DAILY [facility] Last Admin: 06/13/20 09:02 Dose: 40 mg Documented by: Simvastatin (Zocor) 40 mg PO BEDTIME [facility] Last Admin: 06/12/20 20:25 Dose: 40 mg Documented by: Sodium Chloride (Saline Flush) 10 ml FLUSH ASDIRECTED PRN PRN Reason: Keep Vein Open Last Admin: 06/08/20 12:52 Dose: 10 ml Documented by: Sodium Chloride (Saline Flush) 2.5 ml FLUSH ASDIRECTED PRN PRN Reason: Keep Vein Open Last Admin: 06/08/20 12:52 Dose: 2.5 ml Documented by: Sodium Chloride ([place] Nasal [place]) 0 ml KENRICK Q4H PRN PRN Reason: Congestion Last Admin: 06/11/20 10:07 Dose: 1 sprays(dnu) Documented by: Discontinued Medications Azithromycin (Zithromax) 500 mg IV Q24H [facility] Azithromycin (Zithromax) Confirm Administered Dose 500 mg .ROUTE .STK-MED ONE Stop: 06/08/20 19:52 Last Admin: 06/08/20 20:11 Dose: Not Given Documented by: Azithromycin (Zithromax) 250 mg IV Q24H [facility] Furosemide (Lasix) 20 mg IVPUSH NOW ONE Stop: 06/08/20 13:12 Last Admin: 06/08/20 13:22 Dose: 20 mg Documented by: Furosemide (Lasix) 20 mg IVPUSH NOW ONE Stop: 06/08/20 16:04 Last Admin: 06/08/20 17:28 Dose: Not Given Documented by: Furosemide (Lasix) 20 mg IVPUSH NOW ONE Stop: 06/08/20 17:16 Last Admin: 06/08/20 17:28 Dose: 20 mg Documented by: Furosemide (Lasix) 60 mg IVPUSH NOW ONE Stop: 06/09/20 09:14 Last Admin: 06/09/20 09:45 Dose: 60 mg Documented by: Furosemide (Lasix) 40 mg IVPUSH DAILY [facility] Last Admin: 06/10/20 08:04 Dose: 40 mg Documented by: Furosemide (Lasix) 40 mg IVPUSH BIDDIURETIC [facility] Last Admin: 06/11/20 13:09 Dose: 40 mg Documented by: Furosemide (Lasix) 20 mg IVPUSH NOW ONE Stop: 06/11/20 19:18 Last Admin: 06/11/20 19:41 Dose: 20 mg Documented by: Furosemide (Lasix) 40 mg IVPUSH NOW ONE Stop: 06/12/20 12:40 Last Admin: 06/12/20 12:30 Dose: 40 mg Documented by: Hydromorphone HCl (Dilaudid) 1 mg IVPUSH ONETIME ONE Stop: 06/10/20 09:23 Last Admin: 06/10/20 10:10 Dose: 1 mg Documented by: Sodium Chloride (Normal Saline) 1,000 mls @ 999 mls/hr IV STAT ONE Stop: 06/08/20 13:28 Last Admin: 06/08/20 12:52 Dose: 999 mls/hr Documented by: Ceftriaxone Sodium 1 gm/ (Sodium Chloride) 50 mls @ 100 mls/hr IV Q24H [facility] Last Admin: 09/16/20 19:33 Dose: Not Given Documented by: Ceftriaxone Sodium/Dextrose (Rocephin In Dextrose,Iso-Osm 1 Gm/50 Ml) 50 mls @ 100 mls/hr IV Q24H [facility] Last Admin: 06/12/20 20:24 Dose: 100 mls/hr Documented by: Azithromycin 500 mg/ Sodium (Chloride) 250 mls @ 250 mls/hr IV Q24H [facility] Last Admin: 06/08/20 20:34 Dose: 250 mls/hr Documented by: Sodium Chloride (Normal Saline (Advbag)) Confirm Administered Dose 250 mls @ as directed .ROUTE .STK-MED ONE Stop: 06/08/20 19:52 Last Admin: 06/08/20 20:11 Dose: Not Given Documented by: Azithromycin 500 mg/ Sodium (Chloride) 250 mls @ 250 mls/hr IV Q24H [facility] Azithromycin 500 mg/ Sodium (Chloride) 250 mls @ 250 mls/hr IV DAILY@2030 [facility] Last Admin: 06/12/20 21:00 Dose: 250 mls/hr Documented by: Levofloxacin (Levaquin) 750 mg PO ONETIME ONE Stop: 06/13/20 09:15 Last Admin: 06/13/20 09:45 Dose: 750 mg Documented by: Metolazone (Zaroxolyn) 5 mg PO ONETIME ONE Stop: 06/12/20 10:47 Last Admin: 06/12/20 13:55 Dose: 5 mg Documented by: Morphine Sulfate (Morphine) 1 mg IVPUSH ONETIME ONE Stop: 06/09/20 09:23 Last Admin: 06/09/20 09:46 Dose: 1 mg Documented by: Oxymetazoline HCl (Afrin Original 0.05% Nasal [place]) 0 ml NASBOTH ONETIME ONE Stop: 06/09/20 19:59 Last Admin: 06/09/20 20:31 Dose: 1 spray Documented by: - Exam Quality Assessment: Supplemental Oxygen General: Alert, Oriented Lungs: Clear to Auscultation, Normal Respiratory Effort Cardiovascular: Regular Rate, Irregular Rhythm. No: Regular Rhythm GI/Abdominal Exam: Normal Bowel Sounds, Soft, Non-Tender, Distended Sepsis Event Note - Evaluation Sepsis Screening Result: No Definite Risk - Focused Exam Vital Signs: Vital Signs Temp Pulse Resp BP Pulse Ox 06/13/20 11:00 17 95 06/13/20 10:00 16 136/56 L 92 L 06/13/20 09:36 59 L 06/13/20 09:00 15 130/62 94 L 06/13/20 08:00 37.1 C 17 118/64 93 L 06/13/20 07:00 16 122/59 L 94 L 06/13/20 06:00 16 121/63 94 L 06/13/20 05:00 16 116/65 97 06/13/20 04:00 36.9 C 16 119/69 98 06/13/20 03:00 18 104/53 L 98 06/13/20 02:00 16 105/63 96 06/13/20 01:00 16 116/51 L 96 06/13/20 00:00 37 C 18 106/48 L 96 - Problem List & Annotations (1) Pneumonia SNOMED Code(s): 152612982 Code(s): J18.9 - PNEUMONIA, UNSPECIFIED ORGANISM Status: Acute (2) Acute kidney failure SNOMED Code(s): 69827272 Code(s): N17.9 - ACUTE KIDNEY FAILURE, UNSPECIFIED Status: Acute (3) Acute respiratory failure with hypoxia SNOMED Code(s): 79756989, 898922447 Code(s): J96.01 - ACUTE RESPIRATORY FAILURE WITH HYPOXIA Status: Acute (4) Atrial fibrillation SNOMED Code(s): 41962584 Code(s): I48.91 - UNSPECIFIED ATRIAL FIBRILLATION Status: Acute Qualifiers: Atrial fibrillation type: unspecified Qualified Code(s): I48.91 - Unspecified atrial fibrillation (5) CHF exacerbation SNOMED Code(s): 319066083, 29727378203196 Code(s): I50.9 - HEART FAILURE, UNSPECIFIED Status: Acute Qualifiers: Heart failure type: unspecified Qualified Code(s): I50.9 - Heart failure, unspecified - Problem List Review Problem List Initiated/Reviewed/Updated: Yes - Plan Plan:: CHF exacerbation: patient has responded well to 60 IV lasix bid, strict I&O, Low sodium diet, fluid restrict 1500 , Acute hypoxic respiratory failure, Suspected pneumonia- COPD hx, Azithromycin and ceftriaxone for suspected infection, switch to Levaquin. O2 support to maintain sats above 88%. Currently on 3 L of nasal cannula , patient will likely need home oxygen upon discharge [place]: Creat 1.8 hold nephrotoxic drugs, continue to monitor in AM DM: SSI Sciatica: continue home [place] ; continue to monitor o2 requirements and for respiratory distress. Afib/HTN: Continue diltiazem, amiodarone, Eliquis
--- NOTE | 2020-06-25 20:14 | PCM.DCSUM1 ---
Discharge Summary - Hospital Course Free Text/Narrative:: Patient is a 80-year-old female with a significant past medical history of A. fib on Eliquis, hypertension, CHF, COPD, chronic pain: hip pain/sciatica numbness : Presenting today with increasing shortness of breath with a dry nonproductive cough. Of note patient was seen here at our facility 2 weeks earlier for increasing lethargy and was thought to have accidentally taken the next her dose of her narcotics; however her troponin was elevated x2 and was transferred to see GARRET Sorensen Per patient; PCI was performed with no stents placed, and was discharged with new Lasix regimen Over the past week patient was having increasing shortness of breath and was advised to start taking her Lasix every day as opposed to every other day; however due to her pain in her hip and left sciatica; patient has missed numerous doses because it made her urinate too frequently. ED course: IV Lasix 20 provided. Started on BiPAP secondary to oxygen saturations in the high 60s. Atrial fibrillation noted on EKG; denies any chest pain. Denies any fevers, chills, diarrhea, constipation, diarrhea, dysuria. Chest x-ray: Findings suspicious for CHF with areas of atelectasis. Patient was admitted for further care. Started on IV Lasix. Over next few days her oxygen requirement increased, she was started on high flow oxygen and later on Bipap. Aggreaive IV diuresis was continued. . Lung nuclear scan ruled out PE CTA couldn't be done due to [place]. . CT chest showed possible PNA. Patient was also started on IV antibiotics, Patient eventually improved, she was put on nasal cannula and discharged on home oxygen and PO antibiotics and Lasix. 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 Patient was hemodynamically stable for dc. Diagnosis: Stroke: No - Discharge Data Discharge Date: 06/13/20 Discharge Disposition: Home, Self-Care 01 Condition: Stable - Referral to Home Health Primary Care Physician: Dejan Duff MD - Discharge Diagnosis/Problem(s) (1) Pneumonia SNOMED Code(s): 788832211 ICD Code: J18.9 - PNEUMONIA, UNSPECIFIED ORGANISM Status: Acute (2) Acute kidney failure SNOMED Code(s): 79428590 ICD Code: N17.9 - ACUTE KIDNEY FAILURE, UNSPECIFIED Status: Acute (3) Acute respiratory failure with hypoxia SNOMED Code(s): 63446526, 448806845 ICD Code: J96.01 - ACUTE RESPIRATORY FAILURE WITH HYPOXIA Status: Acute (4) Atrial fibrillation SNOMED Code(s): 98074415 ICD Code: I48.91 - UNSPECIFIED ATRIAL FIBRILLATION Status: Acute Qualifiers: Atrial fibrillation type: unspecified Qualified Code(s): I48.91 - Unspecified atrial fibrillation (5) CHF exacerbation SNOMED Code(s): 912189323, 37604576692891 ICD Code: I50.9 - HEART FAILURE, UNSPECIFIED Status: Acute Qualifiers: Heart failure type: unspecified Qualified Code(s): I50.9 - Heart failure, unspecified - Patient Summary/Data Consults: Consultations 06/13/20 09:24 PT Evaluation and Treatment [CONS] Routine - Patient Instructions Diet: Heart Healthy Diet Fluid Restriction: 1500 mL Activity: As Tolerated Driving: May Drive Today Showering/Bathing: May Shower Notify Provider of: Fever, Increased Pain, Swelling and Redness, Nausea and/or Vomiting - Discharge Plan *PRESCRIPTION DRUG MONITORING PROGRAM REVIEWED*: No *COPY OF PRESCRIPTION DRUG MONITORING REPORT IN PATIENT BLANCO: No Prescriptions/Med Rec: Furosemide [Lasix] 40 mg PO BID 30 Days #60 tablet levoFLOXacin [Levaquin] 750 mg PO Q48H #2 tab Home Medications: Home Meds Liraglutide [Victoza] 3.2 mg SUBCUT DAILY 02/20/17 [History] Simvastatin [Zocor] 40 mg PO BEDTIME 02/20/17 [History] dilTIAZem HCL [Dilt-Xr] 240 mg PO DAILY 02/20/17 [History] Doxazosin Mesylate [Cardura] 2 mg PO BEDTIME 03/17/19 [History] Levothyroxine Sodium 88 mcg PO ACBREAKFAST 03/17/19 [History] Chlorzoxazone 500 mg PO BID #10 tablet 05/17/20 [Rx] Gabapentin [Neurontin] 300 mg PO TID 05/20/20 [History] Hydrocodone/Acetaminophen [[place] 10-325 Tablet] 1 each PO Q4H PRN 05/20/20 [History] Losartan [Cozaar] 100 mg PO DAILY 05/20/20 [History] Naproxen [EC-Naproxen] 500 mg PO BIDMEALS 05/20/20 [History] hydroCHLOROthiazide [Hydrochlorothiazide] 25 mg PO DAILY 05/20/20 [History] Albuterol [Ventolin HFA] 2 puff INH BID PRN 06/08/20 [History] Amiodarone [Cordarone] 200 mg PO DAILY 06/08/20 [History] Apixaban [Eliquis] 5 mg PO BID 06/08/20 [History] Aspirin 81 mg PO DAILY 06/08/20 [History] Ergocalciferol (Vitamin D2) [Vitamin D2] 50,000 unit PO DAILY 06/08/20 [History] Ferrous Sulfate 324 mg PO WITHBREAKFAST 06/08/20 [History] Liraglutide [Victoza] 18 mg SQ DAILY 06/08/20 [History] Metoprolol Succinate [Toprol Xl] 25 mg PO DAILY 06/08/20 [History] Pantoprazole [ProTONIX] 40 mg PO DAILY 06/08/20 [History] Tolterodine [Detrol LA 24 Hr] 2 mg PO DAILY 06/08/20 [History] amLODIPine Besylate [Amlodipine Besylate] 10 mg PO DAILY 06/08/20 [History] hydroCHLOROthiazide [Hydrochlorothiazide] 25 mg PO DAILY 06/08/20 [History] predniSONE [Prednisone] 40 mg PO DAILY 06/08/20 [History] Furosemide [Lasix] 40 mg PO BID 30 Days #60 tablet 06/13/20 [Rx] levoFLOXacin [Levaquin] 750 mg PO Q48H #2 tab 06/13/20 [Rx] Patient Handouts: Acute Kidney Injury, Adult, Furosemide tablets, Heart Failure, Self Care, [id number], Levofloxacin tablets, Living With Heart Failure, Atrial Fibrillation, [id number] Referrals: Dejan Duff MD [Primary Care Provider] - 06/21/20 3:45 pm - Discharge Summary/Plan Comment DC Time >30 min.: No - Patient Data Vitals - Most Recent: Last Vital Signs Temp 37.1 C 06/13/20 08:00 Pulse 59 L 06/13/20 09:36 Resp 17 06/13/20 11:00 BP 136/56 L 06/13/20 10:00 Pulse Ox 95 06/13/20 11:00 Weight - Most Recent: 85.094 kg Med Orders - Current: Current Medications Discontinued Medications Hydrocodone Bitart/Acetaminophen ([place] 325-10 Mg) 1 tab PO Q6H PRN PRN Reason: Pain Last Admin: 06/12/20 17:34 Dose: 1 tab Documented by: Amiodarone HCl (Cordarone) 200 mg PO DAILY [facility] Last Admin: 06/13/20 09:01 Dose: 200 mg Documented by: Apixaban (Eliquis) 5 mg PO BID [facility] Last Admin: 06/13/20 09:01 Dose: 5 mg Documented by: Aspirin (Aspirin) 81 mg PO DAILY [facility] Last Admin: 06/13/20 09:00 Dose: 81 mg Documented by: Azithromycin (Zithromax) 500 mg IV Q24H [facility] Azithromycin (Zithromax) Confirm Administered Dose 500 mg .ROUTE .STK-MED ONE Stop: 06/08/20 19:52 Last Admin: 06/08/20 20:11 Dose: Not Given Documented by: Azithromycin (Zithromax) 250 mg IV Q24H [facility] Bisacodyl (Dulcolax) 10 mg RECTAL DAILY PRN PRN Reason: Constipation Diltiazem HCl (Cardizem Cd) 240 mg PO DAILY [facility] Last Admin: 06/13/20 09:36 Dose: Not Given Documented by: Fluticasone Propionate (Flonase) 0 gm NASBOTH DAILY [facility] Last Admin: 06/13/20 09:02 Dose: 1 spray Documented by: Furosemide (Lasix) 20 mg IVPUSH NOW ONE Stop: 06/08/20 13:12 Last Admin: 06/08/20 13:22 Dose: 20 mg Documented by: Furosemide (Lasix) 20 mg IVPUSH NOW ONE Stop: 06/08/20 16:04 Last Admin: 06/08/20 17:28 Dose: Not Given Documented by: Furosemide (Lasix) 20 mg IVPUSH NOW ONE Stop: 06/08/20 17:16 Last Admin: 06/08/20 17:28 Dose: 20 mg Documented by: Furosemide (Lasix) 60 mg IVPUSH NOW ONE Stop: 06/09/20 09:14 Last Admin: 06/09/20 09:45 Dose: 60 mg Documented by: Furosemide (Lasix) 40 mg IVPUSH DAILY [facility] Last Admin: 06/10/20 08:04 Dose: 40 mg Documented by: Furosemide (Lasix) 40 mg IVPUSH BIDDIURETIC [place] Last Admin: 06/11/20 13:09 Dose: 40 mg Documented by: Furosemide (Lasix) 20 mg IVPUSH NOW ONE Stop: 06/11/20 19:18 Last Admin: 06/11/20 19:41 Dose: 20 mg Documented by: Furosemide (Lasix) 60 mg IVPUSH BIDDIURETIC [facility] Last Admin: 06/13/20 15:30 Dose: Not Given Documented by: Furosemide (Lasix) 40 mg IVPUSH NOW ONE Stop: 06/12/20 12:40 Last Admin: 06/12/20 12:30 Dose: 40 mg Documented by: Gabapentin (Neurontin) 300 mg PO TID [facility] Last Admin: 06/13/20 15:30 Dose: Not Given Documented by: Hydromorphone HCl (Dilaudid) 1 mg IVPUSH ONETIME ONE Stop: 06/10/20 09:23 Last Admin: 06/10/20 10:10 Dose: 1 mg Documented by: Sodium Chloride (Normal Saline) 1,000 mls @ 999 mls/hr IV STAT ONE Stop: 06/08/20 13:28 Last Admin: 06/08/20 12:52 Dose: 999 mls/hr Documented by: Ceftriaxone Sodium 1 gm/ (Sodium Chloride) 50 mls @ 100 mls/hr IV Q24H [facility] Last Admin: 06/08/20 19:33 Dose: Not Given Documented by: Ceftriaxone Sodium/Dextrose (Rocephin In Dextrose,Iso-Osm 1 Gm/50 Ml) 50 mls @ 100 mls/hr IV Q24H [facility] Last Admin: 06/12/20 20:24 Dose: 100 mls/hr Documented by: Azithromycin 500 mg/ Sodium (Chloride) 250 mls @ 250 mls/hr IV Q24H [facility] Last Admin: 06/08/20 20:34 Dose: 250 mls/hr Documented by: Sodium Chloride (Normal Saline (Advbag)) Confirm Administered Dose 250 mls @ as directed .ROUTE .STK-MED ONE Stop: 06/08/20 19:52 Last Admin: 06/08/20 20:11 Dose: Not Given Documented by: Azithromycin 500 mg/ Sodium (Chloride) 250 mls @ 250 mls/hr IV Q24H [facility] Azithromycin 500 mg/ Sodium (Chloride) 250 mls @ 250 mls/hr IV DAILY@2029 [facility] Last Admin: 06/12/20 21:00 Dose: 250 mls/hr Documented by: Insulin Aspart (Novolog) 0 unit SUBCUT TIDAC [facility]; Protocol Last Admin: 06/13/20 12:52 Dose: 1 unit Documented by: Levofloxacin (Levaquin) 750 mg PO ONETIME ONE Stop: 06/13/20 09:15 Last Admin: 06/13/20 09:45 Dose: 750 mg Documented by: Levothyroxine Sodium (Synthroid) 88 mcg PO ACBREAKFAST [facility] Last Admin: 06/13/20 08:54 Dose: 88 mcg Documented by: Lorazepam (Ativan) 1 mg IVPUSH Q4H PRN PRN Reason: Anxiety Last Admin: 06/12/20 21:56 Dose: 1 mg Documented by: Metolazone (Zaroxolyn) 5 mg PO ONETIME ONE Stop: 06/12/20 10:47 Last Admin: 06/12/20 13:55 Dose: 5 mg Documented by: Morphine Sulfate (Morphine) 1 mg IVPUSH ONETIME ONE Stop: 06/09/20 09:23 Last Admin: 06/09/20 09:46 Dose: 1 mg Documented by: Oxymetazoline HCl (Afrin Original 0.05% Nasal [place]) 0 ml NASBOTH ONETIME ONE Stop: 06/09/20 19:59 Last Admin: 06/09/20 20:31 Dose: 1 spray Documented by: Pantoprazole Sodium (Protonix) 40 mg PO DAILY [facility] Last Admin: 06/13/20 09:02 Dose: 40 mg Documented by: Simvastatin (Zocor) 40 mg PO BEDTIME [facility] Last Admin: 06/12/20 20:25 Dose: 40 mg Documented by: Sodium Chloride (Saline Flush) 10 ml FLUSH ASDIRECTED PRN PRN Reason: Keep Vein Open Last Admin: 06/08/20 12:52 Dose: 10 ml Documented by: Sodium Chloride (Saline Flush) 2.5 ml FLUSH ASDIRECTED PRN PRN Reason: Keep Vein Open Last Admin: 06/08/20 12:52 Dose: 2.5 ml Documented by: Sodium Chloride ([place] Nasal [place]) 0 ml KENRICK Q4H PRN PRN Reason: Congestion Last Admin: 06/11/20 10:07 Dose: 1 sprays(dnu) Documented by:
== END 2020-06-13 14:15 | disposition home or self-care (01) | DRG 720 ==
LOC: MW.ED 12:03 → MW.ICU 15:55 → MW.MS 06-13 09:16
PROVIDERS: ADMIT Internal Medicine; ATTEND Internal Medicine
DX: A41.9 Sepsis, unspecified organism (principal); I11.0 Hypertensive heart disease with heart failure; J96.01 Acute respiratory failure with hypoxia; J18.9 Pneumonia, unspecified organism; I48.91 Unspecified atrial fibrillation; N17.9 Acute kidney failure, unspecified; I50.9 Heart failure, unspecified; J44.9 Chronic obstructive pulmonary disease, unspecified; G89.29 Other chronic pain; M54.32 Sciatica, left side; M25.551 Pain in right hip; H54.7 Unspecified visual loss; E78.00 Pure hypercholesterolemia, unspecified; K21.9 Gastro-esophageal reflux disease without esophagitis; K44.9 Diaphragmatic hernia without obstruction or gangrene; M19.90 Unspecified osteoarthritis, unspecified site; E11.9 Type 2 diabetes mellitus without complications; E03.9 Hypothyroidism, unspecified; E55.9 Vitamin D deficiency, unspecified; Z96.653 Presence of artificial knee joint, bilateral; Z20.828 Contact with and (suspected) exposure to other viral communicable diseases; D64.9 Anemia, unspecified; Z88.8 Allergy status to other drugs, medicaments and biological substances; Z91.048 Other nonmedicinal substance allergy status; Z79.82 Long term (current) use of aspirin; Z79.52 Long term (current) use of systemic steroids; Z79.890 Hormone replacement therapy; Z90.11 Acquired absence of right breast and nipple; Z85.3 Personal history of malignant neoplasm of breast; Z98.49 Cataract extraction status, unspecified eye; Z79.01 Long term (current) use of anticoagulants; Z87.891 Personal history of nicotine dependence; Z91.19 Patient's noncompliance with other medical treatment and regimen; Z79.891 Long term (current) use of opiate analgesic; Z91.14 Patient's other noncompliance with medication regimen
CPT/HCPCS: 36415; 70486; 70486-26; 71045; 71045-26; 71250; 71250-26; 78580; 78580-26; 80048; 80053; 81001; 82803; 82962; 83605; 83880; 84439; 84443; 84481; 84484; 85025; 85379; 87040; 87324; 93005; 94660; 96374; 97161-GP; 99222; 99231; 99232; 99238; 99285; 99285-25; A9270-GY; A9540; J0456; J0696; J1170; J1815-GY; J1940; J2060; J2270; J7030; J7050; U0002

== ENCOUNTER 2020-08-10 03:25 | Observation (INO) | payer BC ==
[2020-08-10] MEDS ORDERED: Sodium Chloride 0.9% 2.5 ML Syringe FLUSH PRN (03:42)
[2020-08-10] MEDS ORDERED: Sodium Chloride 0.9% 10 ML Syringe FLUSH PRN (03:42)
[2020-08-10] MEDS ORDERED: Albuterol/Ipratropium 3.0-0.5 MG/3 ML Neb Soln ONE (03:46)
--- NOTE | 2020-08-10 03:48 | EDM.PDOC ---
ED HPI GENERAL MEDICAL PROBLEM - General Chief Complaint: Respiratory Problem Stated Complaint: SHORTNESS OF BREATH Time Seen by Provider: 08/10/20 03:27 - History of Present Illness INITIAL COMMENTS - FREE TEXT/NARRATIVE: 80-year-old female with a history of advanced COPD typically on 3 L nasal cannula who is presenting with worsening shortness of breath since yesterday. Patient reports that last week she presented to [facility] in [place] in order to have surgery. However her COPD was too bad and she ended up being admitted to the hospital for 5 days. She left the hospital 3 days ago and did well for a couple days but then had worsening of her shortness of breath again. She reports that she was not given any nebulizer prescription for home. She states that this is a typical pattern for her. She reports 5 - Covid test thus far most recently within the last week. She states that she is careful about not going out and not allowing anybody into her home. She denies fevers chills myalgias loss of taste or smell sore throat or other infectious symptoms she also denies chest pain she reports only worsening shortness of breath. She reports compliance with her blood thinner. Symptoms constant and slowly worsening without alleviating factors radiation or other associated symptoms. - Related Data Allergies Allergy/AdvReac Type Severity Reaction Status Date / Time lisinopril Allergy Cough Verified 08/10/20 03:34 nitrofurantoin Allergy Rash Verified 08/10/20 03:34 [From Macrobid] pollen extracts Allergy watery eyes Verified 08/10/20 03:34 Home Meds: Home Meds Liraglutide [Victoza] 3.2 mg SUBCUT DAILY 02/20/17 [History] Simvastatin [Zocor] 40 mg PO BEDTIME 02/20/17 [History] dilTIAZem HCL [Dilt-Xr] 240 mg PO DAILY 02/20/17 [History] Doxazosin Mesylate [Cardura] 2 mg PO BEDTIME 03/17/19 [History] Levothyroxine Sodium 88 mcg PO ACBREAKFAST 03/17/19 [History] Chlorzoxazone 500 mg PO BID #10 tablet 05/17/20 [Rx] Gabapentin [Neurontin] 300 mg PO TID 05/20/20 [History] Hydrocodone/Acetaminophen [Calypso 10-325 Tablet] 1 each PO Q4H PRN 05/20/20 [History] Losartan [Cozaar] 100 mg PO DAILY 05/20/20 [History] Naproxen [EC-Naproxen] 500 mg PO BIDMEALS 05/20/20 [History] hydroCHLOROthiazide [Hydrochlorothiazide] 25 mg PO DAILY 05/20/20 [History] Albuterol [Ventolin HFA] 2 puff INH BID PRN 06/08/20 [History] Amiodarone [Cordarone] 200 mg PO DAILY 06/08/20 [History] Apixaban [Eliquis] 5 mg PO BID 06/08/20 [History] Aspirin 81 mg PO DAILY 06/08/20 [History] Ergocalciferol (Vitamin D2) [Vitamin D2] 50,000 unit PO DAILY 06/08/20 [History] Ferrous Sulfate 324 mg PO WITHBREAKFAST 06/08/20 [History] Liraglutide [Victoza] 18 mg SQ DAILY 06/08/20 [History] Metoprolol Succinate [Toprol Xl] 25 mg PO DAILY 06/08/20 [History] Pantoprazole [ProTONIX] 40 mg PO DAILY 06/08/20 [History] Tolterodine [Detrol LA 24 Hr] 2 mg PO DAILY 06/08/20 [History] amLODIPine Besylate [Amlodipine Besylate] 10 mg PO DAILY 06/08/20 [History] hydroCHLOROthiazide [Hydrochlorothiazide] 25 mg PO DAILY 06/08/20 [History] predniSONE [Prednisone] 40 mg PO DAILY 06/08/20 [History] Furosemide [Lasix] 40 mg PO BID 30 Days #60 tablet 06/13/20 [Rx] levoFLOXacin [Levaquin] 750 mg PO Q48H #2 tab 06/13/20 [Rx] Past Medical History HEENT History: Reports: Cataract Other HEENT History: wears glasses, has upper and lower dentures Cardiovascular History: Reports: Arrhythmia, High Cholesterol, Hypertension, Other (See Below) Other Cardiovascular History: hx of PAC's per chart, 50% stenosis in left Carotid Artery per chart Respiratory History: Reports: COPD Other Respiratory History: was told she had COPD because she smoked in the past- no symptoms and no medication Gastrointestinal History: Reports: GERD, Hiatal Hernia Genitourinary History: Reports: None Musculoskeletal History: Reports: Osteoarthritis Other Musculoskeletal History: hx fx leg and ankle Neurological History: Reports: Concussion Endocrine/Metabolic History: Reports: Diabetes, Type II, Hypothyroidism, Vitamin D Deficiency Hematologic History: Reports: Blood Transfusion(s) Oncologic (Cancer) History: Reports: Breast Dermatologic History: Reports: Other (See Below) 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 - Infectious Disease History Infectious Disease History: Reports: None - Past Surgical History Head Surgeries/Procedures: Reports: None HEENT Surgical History: Reports: Cataract Surgery, Laser Surgery Other HEENT Surgeries/Procedures: had laser done for "pressure in eyes" GI Surgical History: Reports: Appendectomy, Colon, Colonoscopy, EGD Other GI Surgeries/Procedures: hx of partial Colectomy because of ruptured appendix as a child Female Surgical History: Reports: Hysterectomy, Mastectomy, Salpingo-Oo phorectomy Other Female Surgeries/Procedures: right Modified Radical mastectomy, left Simple Mastectomy Musculoskeletal Surgical History: Reports: Knee Replacement, ORIF Other Musculoskeletal Surgeries/Procedures:: Bilateral TKA (revision of right knee x2), ORIF left ankle - has screws Social & Family History - Family History Family Medical History: No Pertinent Family History - Caffeine Use Caffeine Use: Reports: Soda ED ROS GENERAL - Review of Systems Review Of Systems: See Below Free Text/Narrative/Comment: General: No fever. Skin: No rash. Eyes: No vision problems. ENT: No sore throat. Neck: No neck stiffness. Respiratory: Per HPI Cardiac: No chest pain. Gastrointestinal: No nausea, vomiting or abdominal pain. Urinary: No dysuria. Musculoskeletal: No myalgias/arthralgias. Neurologic: No headache. ED EXAM, GENERAL - Physical Exam Exam: See Below Free Text/Narrative:: General Appearance: No acute distress, appears comfortable Skin: No rash HEENT: Normocephalic/atraumatic, sclera anicteric, mucous membranes dry Neck: Normal range of motion Chest and Lungs: Normal work of breathing speaking in full and complete sentences but with perioral cyanosis Cardiovascular: Regular rate and rhythm, no murmur Abdomen: Soft, non-tender Back: Normal Musculoskeletal: No edema or tenderness Neurologic: Awake, alert, no obvious deficits, moving all extremities Psychiatric: Appropriate, cooperative #1 Interpretation EKG Date: 08/10/20 Time: 03:54 EKG Interpretation Comments: Sinus rhythm with a rate of 66 significant baseline wander but normal intervals and no clear acute ischemia Course - Vital Signs Last Recorded V/S: Last Vital Signs Temp 96.7 F L 08/10/20 03:25 Pulse 66 08/10/20 04:00 Resp 20 08/10/20 04:00 BP 149/60 H 08/10/20 04:00 Pulse Ox 93 L 08/10/20 04:00 - Orders/Labs/Meds Orders: Active Orders 24 hr Category Date Time Status EKG Documentation Completion [RC] STAT Care 08/10/20 03:43 Active RT Aerosol Therapy [RC] ASDIRECTED Care 08/10/20 04:04 Active PROCALCITONIN [REF] Stat Lab 08/10/20 03:44 Received Sodium Chloride 0.9% [Saline Flush] Med 08/10/20 03:42 Active 10 ml FLUSH ASDIRECTED PRN Sodium Chloride 0.9% [Saline Flush] Med 08/10/20 03:42 Active 2.5 ml FLUSH ASDIRECTED PRN RT Oxygen High Flow [RESPCARE] Stat Oth 08/10/20 03:43 Active Saline Lock Insert [OM.PC] Stat Oth 08/10/20 03:42 Ordered Medication Orders Sodium Chloride (Saline Flush) 10 ml FLUSH ASDIRECTED PRN PRN Reason: Keep Vein Open Sodium Chloride (Saline Flush) 2.5 ml FLUSH ASDIRECTED PRN PRN Reason: Keep Vein Open Labs: Laboratory Tests 08/10/20 08/10/20 08/10/20 Range/Units 03:44 03:44 03:44 WBC 7.62 (4.0-11.0) K/uL RBC 3.36 L (4.30-5.90) M/uL Hgb 9.0 L (12.0-16.0) g/dL Hct 28.9 L (36.0-46.0) % MCV 86.0 (80.0-98.0) fL MCH 26.8 L (27.0-32.0) pg MCHC 31.1 (31.0-37.0) g/dL RDW Std Deviation 49.5 (28.0-62.0) fl RDW Coeff of Batool 16 H (11.0-15.0) % Plt Count 378 (150-400) K/uL MPV 10.80 (7.40-12.00) fL Neut % (Auto) 65.3 (48.0-80.0) % Lymph % (Auto) 22.3 (16.0-40.0) % Glades % (Auto) 11.0 (0.0-15.0) % Eos % (Auto) 1.3 (0.0-7.0) % Baso % (Auto) 0.1 (0.0-1.5) % Neut # (Auto) 5.0 (1.4-5.7) K/uL Lymph # (Auto) 1.7 (0.6-2.4) K/uL Glades # (Auto) 0.8 (0.0-0.8) K/uL Eos # (Auto) 0.1 (0.0-0.7) K/uL Baso # (Auto) 0.0 (0.0-0.1) K/uL Nucleated RBC % 0.0 /100WBC Nucleated RBCs # 0 K/uL D-Dimer, Quantitative 0.87 H (0.0-0.50) mg/L FEU Sodium 131 L (136-145) mmol/L Potassium 4.2 (3.5-5.1) mmol/L Chloride 97 L (98-107) mmol/L Carbon Dioxide 31.2 (21.0-32.0) mmol/L BUN 53 H (7.0-18.0) mg/dL Creatinine 2.3 H (0.6-1.0) mg/dL Est Cr Clr Drug Dosing 15.60 mL/min Estimated GFR (MDRD) 20.3 ml/min Glucose 115 H (74-106) mg/dL Calcium 9.7 (8.5-10.1) mg/dL Total Bilirubin 0.4 (0.2-1.0) mg/dL AST 16 (15-37) IU/L ALT 17 (14-63) IU/L Alkaline Phosphatase 57 (46-116) U/L Troponin I < 0.050 (0.000-0.056) ng/mL B-Natriuretic Peptide (<100) PG/ML Total Protein 7.4 (6.4-8.2) g/dL Albumin 3.0 L (3.4-5.0) g/dL Globulin 4.4 H (2.6-4.0) g/dL Albumin/Globulin Ratio 0.7 L (0.9-1.6) SARS-CoV-2 RNA (PAUL) (NEGATIVE) 08/10/20 08/10/20 Range/Units 03:44 04:05 WBC (4.0-11.0) K/uL RBC (4.30-5.90) M/uL Hgb (12.0-16.0) g/dL Hct (36.0-46.0) % MCV (80.0-98.0) fL MCH (27.0-32.0) pg MCHC (31.0-37.0) g/dL RDW Std Deviation (28.0-62.0) fl RDW Coeff of Batool (11.0-15.0) % Plt Count (150-400) K/uL MPV (7.40-12.00) fL Neut % (Auto) (48.0-80.0) % Lymph % (Auto) (16.0-40.0) % Glades % (Auto) (0.0-15.0) % Eos % (Auto) (0.0-7.0) % Baso % (Auto) (0.0-1.5) % Neut # (Auto) (1.4-5.7) K/uL Lymph # (Auto) (0.6-2.4) K/uL Glades # (Auto) (0.0-0.8) K/uL Eos # (Auto) (0.0-0.7) K/uL Baso # (Auto) (0.0-0.1) K/uL Nucleated RBC % /100WBC Nucleated RBCs # K/uL D-Dimer, Quantitative (0.0-0.50) mg/L FEU Sodium (136-145) mmol/L Potassium (3.5-5.1) mmol/L Chloride (98-107) mmol/L Carbon Dioxide (21.0-32.0) mmol/L BUN (7.0-18.0) mg/dL Creatinine (0.6-1.0) mg/dL Est Cr Clr Drug Dosing mL/min Estimated GFR (MDRD) ml/min Glucose (74-106) mg/dL Calcium (8.5-10.1) mg/dL Total Bilirubin (0.2-1.0) mg/dL AST (15-37) IU/L ALT (14-63) IU/L Alkaline Phosphatase (46-116) U/L Troponin I (0.000-0.056) ng/mL B-Natriuretic Peptide 387 H (<100) PG/ML Total Protein (6.4-8.2) g/dL Albumin (3.4-5.0) g/dL Globulin (2.6-4.0) g/dL Albumin/Globulin Ratio (0.9-1.6) SARS-CoV-2 RNA (PAUL) NEGATIVE (NEGATIVE) Meds: Medications Generic Name Dose Route Start Last Admin Trade Name Freq PRN Reason Stop Dose Admin Sodium Chloride 10 ml 08/10/20 03:42 Saline Flush FLUSH ASDIRECTED PRN Keep Vein Open Sodium Chloride 2.5 ml 08/10/20 03:42 Saline Flush FLUSH ASDIRECTED PRN Keep Vein Open Discontinued Medications Generic Name Dose Route Start Last Admin Trade Name Freq PRN Reason Stop Dose Admin Albuterol/Ipratropium Confirm 08/10/20 03:46 08/10/20 04:08 Duoneb 3.0-0.5 Mg/3 Ml Administered 08/10/20 03:47 Not Given Dose 3 ml .ROUTE .STK-MED ONE Albuterol/Ipratropium 3 ml 08/10/20 04:03 08/10/20 04:07 Duoneb 3.0-0.5 Mg/3 Ml NEB 08/10/20 04:04 3 ml ONETIME ONE Administration Departure - Departure Time of Disposition: 05:32 Disposition: Refer to Observation Clinical Impression: COPD exacerbation, Respiratory failure with hypoxia - Discharge Information *PRESCRIPTION DRUG MONITORING PROGRAM REVIEWED*: Not Applicable *COPY OF PRESCRIPTION DRUG MONITORING REPORT IN PATIENT BLANCO: Not Applicable Referrals: Dejan Duff MD [Primary Care Provider] - Forms: ED Department Discharge Sepsis Event Note (ED) - Evaluation Sepsis Screening Result: No Definite Risk - Focused Exam Vital Signs: Vital Signs Temp Pulse Resp BP Pulse Ox 08/10/20 04:00 66 20 149/60 H 93 L 08/10/20 03:30 88 L 08/10/20 03:25 96.7 F L 66 24 H 143/52 H 55 L - My Orders Last 24 Hours: My Active Orders 08/10/20 03:42 Sodium Chloride 0.9% [Saline Flush] 10 ml FLUSH ASDIRECTED PRN Sodium Chloride 0.9% [Saline Flush] 2.5 ml FLUSH ASDIRECTED PRN Saline Lock Insert [OM.PC] Stat 08/10/20 03:43 EKG Documentation Completion [RC] STAT RT Oxygen High Flow [RESPCARE] Stat 08/10/20 03:44 PROCALCITONIN [REF] Stat 08/10/20 04:04 RT Aerosol Therapy [RC] ASDIRECTED - Assessment/Plan Last 24 Hours: My Active Orders 08/10/20 03:42 Sodium Chloride 0.9% [Saline Flush] 10 ml FLUSH ASDIRECTED PRN Sodium Chloride 0.9% [Saline Flush] 2.5 ml FLUSH ASDIRECTED PRN Saline Lock Insert [OM.PC] Stat 08/10/20 03:43 EKG Documentation Completion [RC] STAT RT Oxygen High Flow [RESPCARE] Stat 08/10/20 03:44 PROCALCITONIN [REF] Stat 08/10/20 04:04 RT Aerosol Therapy [RC] ASDIRECTED Assessment:: 80-year-old female with advanced COPD presenting with signs and symptoms most consistent with COPD exacerbation I have a low suspicion for Covid given the multiple negative tests and the lack of other infectious symptoms but patient presents with acute on chronic hypoxic respiratory failure and likely will need admission or transfer and so Covid will be sent. Chest x-ray EKG troponin BNP CBC CMP pro-Bowen added to assess for any alternative etiologies including PE. D- dimer sent given the worsening hypoxia. However, my clinical suspicion is that this is simply ongoing worsening of her COPD. DuoNeb ordered will trial high flow given her O2 saturation of 86% on 8 L nasal cannula. Could trial Venti mask as well given the lack of a significant increase in work of breathing. Goal O2 would be greater than [id number]: Patient's labs are notable for essentially stable renal insufficiency minimal hyponatremia D-dimer only minimally abnormal when adjusted for age. Covid is negative. Chest x-ray consistent with multifocal pneumonia given this and her hypoxia and the white count is normal for now we will cover with vancomycin and cefepime given her recent hospital admission. Blood cultures ordered as well. Patient discussed with Dr. Bernal and will refer to observation on tele for further nebs and reassessment. Procalcitonin added as well. Pt remains stable on 10L high flow NC with O2 in the low 90s.
[2020-08-10] MEDS ORDERED: Albuterol/Ipratropium 3.0-0.5 MG/3 ML Neb Soln NEB ONE (04:03)
[2020-08-10 04:20] LABS: BLOOD UREA NITROGEN,BUN 53 mg/dL (7.0-18.0); CARBON DIOXIDE,CO2 31.2 mmol/L (21.0-32.0); CHLORIDE,CL 97 mmol/L (98-107); GLUCOSE RANDOM 115 mg/dL (74-106); POTASSIUM,K 4.2 mmol/L (3.5-5.1); SODIUM,NA 131 mmol/L (136-145)
--- NOTE | 2020-08-10 04:59 | CR ---
Indication: SOB Technique: Chest 1 view Comparison: 06/08/2020 Findings/Impression: Cardiovascular and mediastinum: Stable cardiomediastinal silhouette. Lungs and pleural space: Airspace opacities in the right mid and lower lung and interstitial opacities in the right upper lung. A small left midlung opacity. Correlate for pneumonia and follow-up. A small right pleural effusion is not excluded. Bones and soft tissues: No significant change. Right axillary clips again seen. Dictated by Melecio Duron MD @ Aug 10 2020 4:54AM Signed by Dr. Melecio Duron @ Aug 10 2020 4:57AM
[2020-08-10] MEDS ORDERED: methylPREDNISolone Sodium Succinate 125 MG/2 ML SDV IVPUSH ONE (05:26)
[2020-08-10] MEDS ORDERED: Cefepime 2 GM in Premix Bag 1 BAG IV ONE (05:29)
[2020-08-10] MEDS ORDERED: Glucagon,Human Recombinant 1 MG Vial IM PRN (06:28)
[2020-08-10] MEDS ORDERED: Acetaminophen 325 MG Tab PO PRN (06:28)
[2020-08-10] MEDS ORDERED: Albuterol/Ipratropium 3.0-0.5 MG/3 ML Neb Soln NEB PRN (06:28)
[2020-08-10] MEDS ORDERED: 50% Dextrose in Water 50 ML Syringe IV PRN (06:28)
[2020-08-10] MEDS ORDERED: guaiFENesin 100 MG/5 ML Soln 10 ML UD Cup PO PRN (06:28)
[2020-08-10] MEDS ORDERED: 50% Dextrose in Water 50 ML Syringe IVPUSH PRN (06:35)
[2020-08-10] MEDS: Insulin Aspart 100 Units/ML 3 ML Pen SUBCUT SCH ×3 (07:22→16:40)
--- NOTE | 2020-08-10 10:26 | PCM.HP.2 ---
H&P History of Present Illness - General Date of Service: 08/10/20 Admit Problem/Dx: Admission Diagnosis/Problem Admission Diagnosis/Problem Respiratory failure with hypoxia - History of Present Illness Initial Comments - Free Text/Narative: Patient is a 80-year-old female with a significant past medical history of A. fib on Eliquis, hypertension, CHF, COPD on 3L NC, chronic pain: hip pain/sciatica numbness presenting with worsening shortness of breath since yesterday. Patient reports that last week she was scheduled to have surgery for her sciatica at [facility] in [place] However upon arrival her COPD was too bad and she ended up being admitted to the hospital for 5 days for COPD exacerbation. She left the hospital 3 days ago and did well for a couple days but then had worsening of her shortness of breath again. She has been tested several times for COVID, all negative. She states that she is careful about not going out and not allowing anybody into her home. She denies fevers, chills, myalgias, loss of taste or smell sore throat, she also denies chest pain. Otherwise is compliant with her meds. States at home her had to "up her oxygen to 8Ls" and she still felt she couldn't breath. She didnt want to come to hospital but eventually came as her symptoms were getting worse. In the ER patient was hypoxic in low 80s on 5Ls, was started on 8Lts which improved her oxygenation. CXR was significant for pneumonia. Creatinine was slightly elevated from baseline. Patient was started on IV steroids and IV antibiotics. Patient was admitted for further management RIGHT LEG Pain Score (Numeric/FACES): 10 - Related Data Allergies/Adverse Reactions: Allergies Allergy/AdvReac Type Severity Reaction Status Date / Time lisinopril Allergy Cough Verified 08/10/20 06:47 nitrofurantoin Allergy Rash Verified 08/10/20 06:47 [From Macrobid] pollen extracts Allergy watery eyes Verified 08/10/20 06:47 Home Medications: Home Meds Simvastatin [Zocor] 40 mg PO BEDTIME 02/20/17 [History] dilTIAZem HCL [Dilt-Xr] 240 mg PO DAILY 02/20/17 [History] Doxazosin Mesylate [Cardura] 2 mg PO BEDTIME 03/17/19 [History] Levothyroxine Sodium 88 mcg PO ACBREAKFAST 03/17/19 [History] Losartan [Cozaar] 100 mg PO DAILY 05/20/20 [History] Albuterol [Ventolin HFA] 2 puff INH BID PRN 06/08/20 [History] Amiodarone [Cordarone] 200 mg PO DAILY 06/08/20 [History] Apixaban [Eliquis] 5 mg PO BID 06/08/20 [History] Aspirin 81 mg PO DAILY 06/08/20 [History] Metoprolol Succinate [Toprol Xl] 25 mg PO DAILY 06/08/20 [History] amLODIPine Besylate [Amlodipine Besylate] 10 mg PO DAILY 06/08/20 [History] hydroCHLOROthiazide [Hydrochlorothiazide] 25 mg PO DAILY 06/08/20 [History] Furosemide [Lasix] 40 mg PO DAILY 08/10/20 [History] Gabapentin [Neurontin] 200 mg PO BID 08/10/20 [History] Liraglutide [Victoza] 1.8 mg SUBCUT DAILY 08/10/20 [History] Potassium Chloride [Klor-Con M20] 20 meq PO DAILY 08/10/20 [History] Pregabalin [Lyrica] 50 mg PO BID 08/10/20 [History] Past Medical History HEENT History: Reports: Cataract Other HEENT History: wears glasses, has upper and lower dentures Cardiovascular History: Reports: Arrhythmia, High Cholesterol, Hypertension, Other (See Below) Other Cardiovascular History: hx of PAC's per chart, 50% stenosis in left Carotid Artery per chart Respiratory History: Reports: COPD Other Respiratory History: was told she had COPD because she smoked in the past- no symptoms and no medication Gastrointestinal History: Reports: GERD, Hiatal Hernia Genitourinary History: Reports: None MED[employer] CENTER ASSISTANT History: Reports: None Musculoskeletal History: Reports: Osteoarthritis Other Musculoskeletal History: hx fx leg and ankle Neurological History: Reports: Concussion Psychiatric History: Reports: None Endocrine/Metabolic History: Reports: Diabetes, Type II, Hypothyroidism, Vitamin D Deficiency Insulin Pump Model and Gun Synchronizer: None Hematologic History: Reports: Blood Transfusion(s) Immunologic History: Reports: None Oncologic (Cancer) History: Reports: Breast Dermatologic History: Reports: Other (See Below) 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 - Infectious Disease History Infectious Disease History: Reports: None - Past Surgical History Head Surgeries/Procedures: Reports: None HEENT Surgical History: Reports: Cataract Surgery, Laser Surgery Other HEENT Surgeries/Procedures: had laser done for "pressure in eyes" Cardiovascular Surgical History: Reports: Other (See Below) Other Cardiovascular Surgeries/Procedures: Angiogram - 2020 Respiratory Surgical History: Reports: None GI Surgical History: Reports: Appendectomy, Colon, Colonoscopy, EGD Other GI Surgeries/Procedures: hx of partial Colectomy because of ruptured appendix as a child Female Surgical History: Reports: Hysterectomy, Mastectomy, Salpingo- Oophorectomy Other Female Surgeries/Procedures: right Modified Radical mastectomy, left Simple Mastectomy Endocrine Surgical History: Reports: None Musculoskeletal Surgical History: Reports: Knee Replacement, ORIF Other Musculoskeletal Surgeries/Procedures:: Bilateral TKA (revision of right knee x2), ORIF left ankle - has screws Social & Family History - Family History Family Medical History: No Pertinent Family History - Tobacco Use Tobacco Use Status *Q: Former Tobacco User Years of Tobacco use: 20 Used Tobacco, but Quit: Yes Month/Year Tobacco Last Used: - Caffeine Use Caffeine Use: Reports: Tea - Recreational Drug Use Recreational Drug Use: No H&P Review of Systems - Review of Systems: Review Of Systems: See Below General: Reports: Malaise, Weakness, Fatigue. Denies: Fever, Chills Pulmonary: Reports: Shortness of Breath, Cough. Denies: Wheezing, Sputum, Hemoptysis Cardiovascular: Reports: Dyspnea on Exertion. Denies: Chest Pain, Palpitations, Orthopnea Gastrointestinal: Denies: Abdominal Pain, Anorexia, Black Stool, Bloody Stool Genitourinary: Denies: Dysuria, Frequency, Burning, Pain, Urgency Musculoskeletal: Denies: Neck Pain, Shoulder Pain, Arm Pain, Back Pain Skin: Denies: Cyanosis, Jaundice, Mottled, Pallor Psychiatric: Denies: Confusion, Depression, Mood Lability, Anxiety Neurological: Denies: Confusion, Dizziness, Headache, Numbness Exam - Exam Exam: See Below - Vital Signs Vital Signs: Last Vital Signs Temp 36.6 C 08/10/20 08:15 Pulse 72 08/10/20 08:15 Resp 22 H 08/10/20 08:15 BP 144/55 H 08/10/20 08:15 Pulse Ox 89 L 08/10/20 08:15 Weight: 80.286 kg - Exam General: Alert, Oriented, Cooperative, Mild Distress Neck: Supple, Trachea Midline Lungs: Decreased Breath Sounds, Crackles, Rales. No: Clear to Auscultation Cardiovascular: Regular Rate, Irregular Rhythm GI/Abdominal Exam: No: Normal Bowel Sounds, Soft, Non-Tender Peripheral Pulses: 3+: Dorsalis Pedis (L), Dorsalis Pedis (R) Neuro Extensive - Mental Status: Alert, Oriented x3 - Patient Data Lab Results Last 24 hrs: Laboratory Results - last 24 hr 08/10/20 08/10/20 08/10/20 Range/Units 03:44 03:44 03:44 WBC 7.62 (4.0-11.0) K/uL RBC 3.36 L (4.30-5.90) M/uL Hgb 9.0 L (12.0-16.0) g/dL Hct 28.9 L (36.0-46.0) % MCV 86.0 (80.0-98.0) fL MCH 26.8 L (27.0-32.0) pg MCHC 31.1 (31.0-37.0) g/dL RDW Std Deviation 49.5 (28.0-62.0) fl RDW Coeff of Batool 16 H (11.0-15.0) % Plt Count 378 (150-400) K/uL MPV 10.80 (7.40-12.00) fL Neut % (Auto) 65.3 (48.0-80.0) % Lymph % (Auto) 22.3 (16.0-40.0) % Labette % (Auto) 11.0 (0.0-15.0) % Eos % (Auto) 1.3 (0.0-7.0) % Baso % (Auto) 0.1 (0.0-1.5) % Neut # (Auto) 5.0 (1.4-5.7) K/uL Lymph # (Auto) 1.7 (0.6-2.4) K/uL Labette # (Auto) 0.8 (0.0-0.8) K/uL Eos # (Auto) 0.1 (0.0-0.7) K/uL Baso # (Auto) 0.0 (0.0-0.1) K/uL Nucleated RBC % 0.0 /100WBC Nucleated RBCs # 0 K/uL D-Dimer, Quantitative 0.87 H (0.0-0.50) mg/L FEU Sodium 131 L (136-145) mmol/L Potassium 4.2 (3.5-5.1) mmol/L Chloride 97 L (98-107) mmol/L Carbon Dioxide 31.2 (21.0-32.0) mmol/L BUN 53 H (7.0-18.0) mg/dL Creatinine 2.3 H (0.6-1.0) mg/dL Est Cr Clr Drug Dosing 15.60 mL/min Estimated GFR (MDRD) 20.3 ml/min Glucose 115 H (74-106) mg/dL POC Glucose (60-110) mg/dL Calcium 9.7 (8.5-10.1) mg/dL Total Bilirubin 0.4 (0.2-1.0) mg/dL AST 16 (15-37) IU/L ALT 17 (14-63) IU/L Alkaline Phosphatase 57 (46-116) U/L Troponin I < 0.050 (0.000-0.056) ng/mL B-Natriuretic Peptide (<100) PG/ML Total Protein 7.4 (6.4-8.2) g/dL Albumin 3.0 L (3.4-5.0) g/dL Globulin 4.4 H (2.6-4.0) g/dL Albumin/Globulin Ratio 0.7 L (0.9-1.6) SARS-CoV-2 RNA (PAUL) (NEGATIVE) 08/10/20 08/10/20 08/10/20 Range/Units 03:44 04:05 06:57 WBC (4.0-11.0) K/uL RBC (4.30-5.90) M/uL Hgb (12.0-16.0) g/dL Hct (36.0-46.0) % MCV (80.0-98.0) fL MCH (27.0-32.0) pg MCHC (31.0-37.0) g/dL RDW Std Deviation (28.0-62.0) fl RDW Coeff of Batool (11.0-15.0) % Plt Count (150-400) K/uL MPV (7.40-12.00) fL Neut % (Auto) (48.0-80.0) % Lymph % (Auto) (16.0-40.0) % Labette % (Auto) (0.0-15.0) % Eos % (Auto) (0.0-7.0) % Baso % (Auto) (0.0-1.5) % Neut # (Auto) (1.4-5.7) K/uL Lymph # (Auto) (0.6-2.4) K/uL Labette # (Auto) (0.0-0.8) K/uL Eos # (Auto) (0.0-0.7) K/uL Baso # (Auto) (0.0-0.1) K/uL Nucleated RBC % /100WBC Nucleated RBCs # K/uL D-Dimer, Quantitative (0.0-0.50) mg/L FEU Sodium (136-145) mmol/L Potassium (3.5-5.1) mmol/L Chloride (98-107) mmol/L Carbon Dioxide (21.0-32.0) mmol/L BUN (7.0-18.0) mg/dL Creatinine (0.6-1.0) mg/dL Est Cr Clr Drug Dosing mL/min Estimated GFR (MDRD) ml/min Glucose (74-106) mg/dL POC Glucose 120 H (60-110) mg/dL Calcium (8.5-10.1) mg/dL Total Bilirubin (0.2-1.0) mg/dL AST (15-37) IU/L ALT (14-63) IU/L Alkaline Phosphatase (46-116) U/L Troponin I (0.000-0.056) ng/mL B-Natriuretic Peptide 387 H (<100) PG/ML Total Protein (6.4-8.2) g/dL Albumin (3.4-5.0) g/dL Globulin (2.6-4.0) g/dL Albumin/Globulin Ratio (0.9-1.6) SARS-CoV-2 RNA (PAUL) NEGATIVE (NEGATIVE) Result Diagrams: 08/11/20 08:53 08/11/20 08:53 Sepsis Event Note - Evaluation Sepsis Screening Result: No Definite Risk - Focused Exam Vital Signs: Vital Signs Temp Pulse Resp BP Pulse Ox 08/10/20 08:15 36.6 C 72 22 H 144/55 H 89 L 08/10/20 06:28 36.9 C 82 20 146/77 H 92 L 08/10/20 05:32 70 20 138/47 L 90 L 08/10/20 04:00 66 20 149/60 H 93 L 08/10/20 03:30 88 L 08/10/20 03:25 35.9 C L 66 24 H 143/52 H 55 L Problem List Initiated/Reviewed/Updated: Yes Orders Last 24hrs: Active Orders 24 hr Category Date Time Status Patient Status [ADT] Routine ADT 08/10/20 05:27 Active Blood Glucose Check, Bedside [RC] TIDMEALS Care 08/10/20 06:28 Active Blood Glucose Check, Bedside [RC] TIDMEALS Care 08/10/20 06:28 Active Oxygen Therapy, ED [RC] ASDIRECTED Care 08/10/20 06:28 Active RT Aerosol Therapy [RC] ASDIRECTED Care 08/10/20 04:04 Active RT Aerosol Therapy [RC] ASDIRECTED Care 08/10/20 06:29 Active Telemetry Monitoring [Cardiac Monitoring] [RC] Q8H Care 08/10/20 06:00 Active Vital Signs [RC] Q4H Care 08/10/20 06:28 Active [employer] Diet [DIET] Diet 08/10/20 Breakfast Active CULTURE BLOOD [BC] Stat Lab 08/10/20 05:48 Received CULTURE BLOOD [BC] Stat Lab 08/10/20 05:53 Received PROCALCITONIN [REF] Stat Lab 08/10/20 03:44 Received VANCOMYCIN RANDOM [CHEM] Timed Lab 08/12/20 08:00 Ordered Acetaminophen [TylenoL] Med 08/10/20 06:28 Active 650 mg PO Q4H PRN Albuterol/Ipratropium [DuoNeb 3.0-0.5 MG/3 ML] Med 08/10/20 06:28 Active 3 ml NEB Q4HRRT PRN Dextrose 50% in Water Med 08/10/20 06:35 Active 50 ml IVPUSH ASDIRECTED PRN Glucagon,Human Recombinant [GlucaGen] Med 08/10/20 06:28 Active 1 mg IM ASDIRECTED PRN Insulin Aspart [NovoLOG] Med 08/10/20 07:30 Active See Protocol SUBCUT TIDA Pharmacy to Dose - Vancomycin Med 08/10/20 10:30 Ordered 1 dose .XX ASDIRECTED Piperacillin/Tazobactam [Piperacil-Tazobact] 4.5 gm Med 08/10/20 10:30 Ordered Sodium Chloride 0.9% [Normal Saline] 100 ml IV Q6H Sodium Chloride 0.9% [Saline Flush] Med 08/10/20 03:42 Active 10 ml FLUSH ASDIRECTED PRN Sodium Chloride 0.9% [Saline Flush] Med 08/10/20 03:42 Active 2.5 ml FLUSH ASDIRECTED PRN guaiFENesin [Robitussin] Med 08/10/20 06:28 Active 200 mg PO Q4H PRN methylPREDNISolone Sod Succ [Solu-MEDROL] Med 08/10/20 14:00 Active 40 mg IVPUSH Q8H Blood Culture x2 Reflex Set [OM.PC] Stat Oth 08/10/20 05:29 Ordered RT Oxygen High Flow [RESPCARE] Stat Oth 08/10/20 03:43 Active Saline Lock Insert [OM.PC] Stat Oth 08/10/20 03:42 Ordered Medication Orders Acetaminophen (Tylenol) 650 mg PO Q4H PRN PRN Reason: Pain/Fever Albuterol/Ipratropium (Duoneb 3.0-0.5 Mg/3 Ml) 3 ml NEB Q4HRRT PRN PRN Reason: Shortness of Breath Dextrose/Water (Dextrose 50% In Water) 50 ml IVPUSH ASDIRECTED PRN PRN Reason: Hypoglycemia Glucagon (Glucagen) 1 mg IM ASDIRECTED PRN PRN Reason: Hypoglycemia Guaifenesin (Robitussin) 200 mg PO Q4H PRN PRN Reason: Cough Piperacillin Sod/Tazobactam (Sod 4.5 gm/ Sodium Chloride) 100 mls @ 100 mls/hr IV Q6H MARBELLA [facility]ulin [facility]art ([facility]) [facility] Protocol Last Admin: 08/10/20 07:22 Dose: Not Given Documented by: EMELIA Methylprednisolone Sodium Succinate (Solu-Medrol) 40 mg IVPUSH Q8H MARBELLA Sodium Chloride (Saline Flush) 10 ml FLUSH ASDIRECTED PRN PRN Reason: Keep Vein Open Sodium Chloride (Saline Flush) 2.5 ml FLUSH ASDIRECTED PRN PRN Reason: Keep Vein Open Vancomycin HCl (Pharmacy To Dose - Vancomycin) 1 dose .XX ASDIRECTED MARBELLA Assessment/Plan Comment:: 80 y/o F admitted for acute on chroinic hypoxic respiratory failure cont supplemental oxygen start board spectrum antibiotics for health care associated pneumonia IV steroids Q8H DuoNebs as needed IV lasix 40 mg once cont home meds as appropriate avoid nephrotoxic meds
[2020-08-10] MEDS ORDERED: Piperacillin/Tazobactam 2.25 GM in Sodium Chloride 0.9% 50 ML IV SCH (10:30)
[2020-08-10] MEDS: Amiodarone 200 MG Tab PO SCH (12:41)
[2020-08-10] MEDS ORDERED: Furosemide 20 MG/2 ML VIAL IVPUSH ONE (12:53)
[2020-08-10] MEDS: Piperacillin/Tazobactam 2.25 GM in Sodium Chloride 0.9% 50 ML IV SCH ×2 (12:56→18:35)
[2020-08-10] MEDS: methylPREDNISolone Sodium Succinate 40 MG/1 ML SDV IVPUSH SCH ×2 (13:01→21:46)
[2020-08-10] MEDS: Doxazosin 2 MG Tab PO SCH (21:42)
[2020-08-10] MEDS: Apixaban 5 MG Tab PO SCH (21:43)
[2020-08-11] MEDS: Piperacillin/Tazobactam 2.25 GM in Sodium Chloride 0.9% 50 ML IV SCH ×4 (00:53→20:26)
[2020-08-11] MEDS: methylPREDNISolone Sodium Succinate 40 MG/1 ML SDV IVPUSH SCH ×2 (06:18→17:16)
[2020-08-11] MEDS: Insulin Aspart 100 Units/ML 3 ML Pen SUBCUT SCH ×3 (06:33→17:18)
[2020-08-11] MEDS: Levothyroxine 88 MCG Tab PO SCH ×2 (06:34→08:55)
[2020-08-11] MEDS: Amiodarone 200 MG Tab PO SCH (08:55)
[2020-08-11] MEDS: Metoprolol Succinate 25 MG Tab.ER PO SCH (08:56)
[2020-08-11] MEDS: Furosemide 40 MG Tab PO SCH (09:00)
[2020-08-11] MEDS: Apixaban 5 MG Tab PO SCH ×2 (09:00→20:26)
[2020-08-11] MEDS: Aspirin 81 MG Tab.Chew PO SCH (09:01)
--- NOTE | 2020-08-11 11:38 | PCM.PN ---
- General Info Date of Service: 08/11/20 Admission Dx/Problem (Free Text): Admission Diagnosis/Problem Admission Diagnosis/Problem Respiratory failure with hypoxia Subjective Update: Reports he is feeling improved today. Shortness of breath has improved. Reports mild cough. No chest pain or shortness of breath. No further swelling to lower extremities and feels this has improved significantly since yesterday. Functional Status: Reports: Pain Controlled, Tolerating Diet, Ambulating, Urinating - Review of Systems HEENT: Reports: No Symptoms. Denies: Headaches, Visual Changes Pulmonary: Reports: Shortness of Breath (Continues to improve), Cough. Denies: Sputum Cardiovascular: Reports: No Symptoms. Denies: Chest Pain Gastrointestinal: Reports: No Symptoms. Denies: Abdominal Pain, Nausea, Vomiting Genitourinary: Reports: No Symptoms. Denies: Dysuria, Frequency, Burning Musculoskeletal: Reports: No Symptoms Skin: Reports: No Symptoms Neurological: Reports: No Symptoms Psychiatric: Reports: No Symptoms - Patient Data Vitals - Most Recent: Last Vital Signs Temp 97.7 F 08/11/20 07:00 Pulse 68 08/11/20 08:56 Resp 20 08/11/20 07:00 BP 141/57 H 08/11/20 08:56 Pulse Ox 98 08/11/20 07:00 Weight - Most Recent: 80.286 kg I&O - Last 24 Hours: Intake & Output 08/10/20 08/11/20 08/11/20 22:59 06:59 14:59 Intake Total 640 580 Output Total 1200 1100 Balance -560 -520 Lab Results Last 24 Hours: Laboratory Results - last 24 hr 08/10/20 08/10/20 08/10/20 Range/Units 03:44 11:32 16:31 WBC (4.0-11.0) K/uL RBC (4.30-5.90) M/uL Hgb (12.0-16.0) g/dL Hct (36.0-46.0) % MCV (80.0-98.0) fL MCH (27.0-32.0) pg MCHC (31.0-37.0) g/dL RDW Std Deviation (28.0-62.0) fl RDW Coeff of Batool (11.0-15.0) % Plt Count (150-400) K/uL MPV (7.40-12.00) fL Neut % (Auto) (48.0-80.0) % Lymph % (Auto) (16.0-40.0) % Yates % (Auto) (0.0-15.0) % Eos % (Auto) (0.0-7.0) % Baso % (Auto) (0.0-1.5) % Neut # (Auto) (1.4-5.7) K/uL Lymph # (Auto) (0.6-2.4) K/uL Yates # (Auto) (0.0-0.8) K/uL Eos # (Auto) (0.0-0.7) K/uL Baso # (Auto) (0.0-0.1) K/uL Nucleated RBC % /100WBC Nucleated RBCs # K/uL Sodium (136-145) mmol/L Potassium (3.5-5.1) mmol/L Chloride (98-107) mmol/L Carbon Dioxide (21.0-32.0) mmol/L BUN (7.0-18.0) mg/dL Creatinine (0.6-1.0) mg/dL Est Cr Clr Drug Dosing mL/min Estimated GFR (MDRD) ml/min Glucose (74-106) mg/dL POC Glucose 230 H 261 H (60-110) mg/dL Calcium (8.5-10.1) mg/dL Procalcitonin 2.71 H (<0.10) ng/mL Vancomycin Trough (5.0-10.0) ug/mL 08/11/20 08/11/20 08/11/20 Range/Units 05:50 08:53 08:53 WBC 8.57 (4.0-11.0) K/uL RBC 3.47 L (4.30-5.90) M/uL Hgb 8.9 L (12.0-16.0) g/dL Hct 29.5 L (36.0-46.0) % MCV 85.0 (80.0-98.0) fL MCH 25.6 L (27.0-32.0) pg MCHC 30.2 L (31.0-37.0) g/dL RDW Std Deviation 48.3 (28.0-62.0) fl RDW Coeff of Batool 16 H (11.0-15.0) % Plt Count 462 H (150-400) K/uL MPV 11.30 (7.40-12.00) fL Neut % (Auto) 87.9 H (48.0-80.0) % Lymph % (Auto) 9.9 L (16.0-40.0) % Yates % (Auto) 2.2 (0.0-15.0) % Eos % (Auto) 0.0 (0.0-7.0) % Baso % (Auto) 0.0 (0.0-1.5) % Neut # (Auto) 7.5 H (1.4-5.7) K/uL Lymph # (Auto) 0.9 (0.6-2.4) K/uL Yates # (Auto) 0.2 (0.0-0.8) K/uL Eos # (Auto) 0.0 (0.0-0.7) K/uL Baso # (Auto) 0.0 (0.0-0.1) K/uL Nucleated RBC % 0.0 /100WBC Nucleated RBCs # 0 K/uL Sodium 140 (136-145) mmol/L Potassium 4.0 (3.5-5.1) mmol/L Chloride 101 (98-107) mmol/L Carbon Dioxide 29.0 (21.0-32.0) mmol/L BUN 45 H (7.0-18.0) mg/dL Creatinine 1.9 H (0.6-1.0) mg/dL Est Cr Clr Drug Dosing 18.88 mL/min Estimated GFR (MDRD) 25.3 ml/min Glucose 200 H (74-106) mg/dL POC Glucose 181 H (60-110) mg/dL Calcium 9.8 (8.5-10.1) mg/dL Procalcitonin (<0.10) ng/mL Vancomycin Trough (5.0-10.0) ug/mL 08/11/20 Range/Units 08:53 WBC (4.0-11.0) K/uL RBC (4.30-5.90) M/uL Hgb (12.0-16.0) g/dL Hct (36.0-46.0) % MCV (80.0-98.0) fL MCH (27.0-32.0) pg MCHC (31.0-37.0) g/dL RDW Std Deviation (28.0-62.0) fl RDW Coeff of Batool (11.0-15.0) % Plt Count (150-400) K/uL MPV (7.40-12.00) fL Neut % (Auto) (48.0-80.0) % Lymph % (Auto) (16.0-40.0) % Yates % (Auto) (0.0-15.0) % Eos % (Auto) (0.0-7.0) % Baso % (Auto) (0.0-1.5) % Neut # (Auto) (1.4-5.7) K/uL Lymph # (Auto) (0.6-2.4) K/uL Yates # (Auto) (0.0-0.8) K/uL Eos # (Auto) (0.0-0.7) K/uL Baso # (Auto) (0.0-0.1) K/uL Nucleated RBC % /100WBC Nucleated RBCs # K/uL Sodium (136-145) mmol/L Potassium (3.5-5.1) mmol/L Chloride (98-107) mmol/L Carbon Dioxide (21.0-32.0) mmol/L BUN (7.0-18.0) mg/dL Creatinine (0.6-1.0) mg/dL Est Cr Clr Drug Dosing mL/min Estimated GFR (MDRD) ml/min Glucose (74-106) mg/dL POC Glucose (60-110) mg/dL Calcium (8.5-10.1) mg/dL Procalcitonin (<0.10) ng/mL Vancomycin Trough 10.6 H (5.0-10.0) ug/mL Jake Results Last 24 Hours: Microbiology 08/10/20 05:53 Aerobic Blood Culture - Preliminary Blood - Venous - Lab Draw NO GROWTH AFTER 1 DAY Anaerobic Blood Culture - Preliminary NO GROWTH AFTER 1 DAY 08/10/20 05:48 Aerobic Blood Culture - Preliminary Blood - Venous NO GROWTH AFTER 1 DAY Anaerobic Blood Culture - Preliminary NO GROWTH AFTER 1 DAY Med Orders - Current: Current Medications Acetaminophen (Tylenol) 650 mg PO Q4H PRN PRN Reason: Pain/Fever Albuterol/Ipratropium (Duoneb 3.0-0.5 Mg/3 Ml) 3 ml NEB Q4HRRT PRN PRN Reason: Shortness of Breath Amiodarone HCl (Cordarone) 200 mg PO DAILY [facility] Last Admin: 08/11/20 08:55 Dose: 200 mg Documented by: Apixaban (Eliquis) 5 mg PO BID [facility] Last Admin: 08/11/20 09:00 Dose: 5 mg Documented by: Aspirin (Aspirin) 81 mg PO DAILY [facility] Last Admin: 08/11/20 09:01 Dose: 81 mg Documented by: Dextrose/Water (Dextrose 50% In Water) 50 ml IVPUSH ASDIRECTED PRN PRN Reason: Hypoglycemia Doxazosin Mesylate (Cardura) 2 mg PO BEDTIME [facility] Last Admin: 08/10/20 21:42 Dose: 2 mg Documented by: Furosemide (Lasix) 40 mg PO DAILY [facility] Last Admin: 08/11/20 09:00 Dose: 40 mg Documented by: Glucagon (Glucagen) 1 mg IM ASDIRECTED PRN PRN Reason: Hypoglycemia Guaifenesin (Robitussin) 200 mg PO Q4H PRN PRN Reason: Cough Piperacillin Sod/Tazobactam (Sod 2.25 gm/ Sodium Chloride) 50 mls @ 100 mls/hr IV Q6H [facility] Last Admin: 08/11/20 06:24 Dose: 100 mls/hr Documented by: Vancomycin HCl 1.25 gm/ Sodium (Chloride) 250 mls @ 166.667 mls/hr IV Q24H [facility] Insulin Aspart (Novolog) 0 unit SUBCUT TIDAC [facility]; Protocol Last Admin: 08/11/20 06:33 Dose: 2 units Documented by: Levothyroxine Sodium (Synthroid) 88 mcg PO ACBREAKFAST [facility] Last Admin: 08/11/20 08:55 Dose: 88 mcg Documented by: Methylprednisolone Sodium Succinate (Solu-Medrol) 40 mg IVPUSH Q8H [facility] Last Admin: 08/11/20 06:18 Dose: 40 mg Documented by: Metoprolol Succinate (Toprol Xl) 25 mg PO DAILY [facility] Last Admin: 08/11/20 08:56 Dose: 25 mg Documented by: Sodium Chloride (Saline Flush) 10 ml FLUSH ASDIRECTED PRN PRN Reason: Keep Vein Open Sodium Chloride (Saline Flush) 2.5 ml FLUSH ASDIRECTED PRN PRN Reason: Keep Vein Open Vancomycin HCl (Pharmacy To Dose - Vancomycin) 1 dose .XX ASDIRECTED MARBELLA Discontinued Medications Albuterol/Ipratropium (Duoneb 3.0-0.5 Mg/3 Ml) Confirm Administered Dose 3 ml .ROUTE .STK-MED ONE Stop: 08/10/20 03:47 Last Admin: 08/10/20 04:08 Dose: Not Given Documented by: Albuterol/Ipratropium (Duoneb 3.0-0.5 Mg/3 Ml) 3 ml NEB ONETIME ONE Stop: 08/10/20 04:04 Last Admin: 08/10/20 04:07 Dose: 3 ml Documented by: Dextrose/Water (Dextrose 50% In Water) 50 ml IV ASDIRECTED PRN PRN Reason: Hypoglycemia Furosemide (Lasix) 20 mg IVPUSH ONETIME ONE Stop: 08/10/20 12:54 Last Admin: 08/10/20 13:04 Dose: 20 mg Documented by: Cefepime HCl 2 gm/ Premix 50 mls @ 100 mls/hr IV ONETIME ONE Stop: 08/10/20 05:58 Last Admin: 08/10/20 05:52 Dose: 100 mls/hr Documented by: Vancomycin HCl 1.5 gm/ Premix 300 mls @ 300 mls/hr IV ONETIME ONE Stop: 08/10/20 06:59 Last Admin: 08/10/20 06:58 Dose: 300 mls/hr Documented by: Piperacillin Sod/Tazobactam (Sod 2.25 gm/ Sodium Chloride) 50 mls @ 100 mls/hr IV Q6H [facility] Last Admin: 08/10/20 13:06 Dose: Not Given Documented by: Methylprednisolone Sodium Succinate (Solu-Medrol) 80 mg IVPUSH ONETIME ONE Stop: 08/10/20 05:27 Last Admin: 08/10/20 05:51 Dose: 80 mg Documented by: Vancomycin HCl (Pharmacy To Dose - Vancomycin) 1 dose .XX ONETIME ONE Stop: 08/10/20 05:31 Last Admin: 08/10/20 07:44 Dose: Not Given Documented by: - Exam General: Alert, Oriented, Cooperative, No Acute Distress Lungs: Normal Respiratory Effort, Rhonchi, Wheezing Cardiovascular: Regular Rate, Regular Rhythm GI/Abdominal Exam: Normal Bowel Sounds, Soft, Non-Tender Back Exam: Normal Inspection, Full Range of Motion Extremities: Normal Inspection, Normal Range of Motion, Non-Tender, No Pedal Edema Neurological: No New Focal Deficit Psy/Mental Status: Alert, Normal Affect, Normal Mood Sepsis Event Note - Evaluation Sepsis Screening Result: No Definite Risk - Focused Exam Vital Signs: Vital Signs Temp Pulse Pulse Resp BP BP Pulse Ox 08/11/20 08:56 68 141/57 H 08/11/20 07:00 97.7 F 66 20 141/57 H 98 08/11/20 03:52 97 F 64 20 164/69 H 94 L 08/11/20 00:00 97.3 F 63 21 H 135/53 L 92 L - Problem List & Annotations (1) Healthcare-associated pneumonia SNOMED Code(s): 976617030, 572043913 Code(s): J18.9 - PNEUMONIA, UNSPECIFIED ORGANISM Status: Acute Current Visit: Yes (2) History of CHF (congestive heart failure) SNOMED Code(s): 301561935 Code(s): Z86.79 - PERSONAL HISTORY OF OTHER DISEASES OF THE CIRCULATORY SYSTEM Status: Chronic Current Visit: Yes (3) COPD exacerbation SNOMED Code(s): 620481997 Code(s): J44.1 - CHRONIC OBSTRUCTIVE PULMONARY DISEASE W (ACUTE) EXACERBATION Status: Acute Current Visit: Yes (4) Acute respiratory failure with hypoxia SNOMED Code(s): 07792579, 934702869 Code(s): J96.01 - ACUTE RESPIRATORY FAILURE WITH HYPOXIA Status: Acute Current Visit: No (5) Anemia SNOMED Code(s): 401048637 Code(s): D64.9 - ANEMIA, UNSPECIFIED Status: Acute Current Visit: No (6) Atrial fibrillation SNOMED Code(s): 37877963 Code(s): I48.91 - UNSPECIFIED ATRIAL FIBRILLATION Status: Acute Current Visit: No Qualifiers: Atrial fibrillation type: unspecified Qualified Code(s): I48.91 - Unspecified atrial fibrillation (7) Hypothyroidism SNOMED Code(s): 86474787 Code(s): E03.9 - HYPOTHYROIDISM, UNSPECIFIED Status: Acute Current Visit: No Qualifiers: Hypothyroidism type: unspecified Qualified Code(s): E03.9 - Hypothyroidism, unspecified (8) DM type 2 (diabetes mellitus, type 2) SNOMED Code(s): 98169683 Code(s): E11.9 - TYPE 2 DIABETES MELLITUS WITHOUT COMPLICATIONS Status: Acute Current Visit: Yes - Problem List Review Problem List Initiated/Reviewed/Updated: Yes - My Orders Last 24 Hours: My Active Orders 08/12/20 05:11 CBC WITH AUTO DIFF [HEME] Routine MAGNESIUM [CHEM] Routine - Plan Plan:: 80 y/o F admitted for acute on chronic hypoxic respiratory failure 1. Acute on chronic hypoxic respiratory failure -Continue weaning oxygen -She was weaned down to 5 L this morning with sats 93%. She is normally on 3 L at home nasal cannula -Encouraged ambulation -IS and Acapella use 2. Healthcare associated pneumonia/COPD exacerbation -Continue broad-spectrum antibiotics including vancomycin and Zosyn -Continue IV steroids Solu-Medrol 40 mg IV every 8 -Encourage I-S and Acapella -Keep oxygen on with goal of oxygen saturations at 88% and above. 3. [place]TE -Improvement with Lasix -Near baseline today we will monitor with labs in morning -Avoid nephrotoxic medication 4. CHF/A. fib -Continue home medications including Eliquis, Lasix, Cardura, metoprolol 5. Hypothyroidism/DM type II -NovoLog sliding scale with meals -Levothyroxine VTE prophylaxis: Eliquis CODE STATUS: Full code Dispo: 1 to 2 days
[2020-08-11] MEDS: Doxazosin 2 MG Tab PO SCH (20:30)
[2020-08-12] MEDS: Piperacillin/Tazobactam 2.25 GM in Sodium Chloride 0.9% 50 ML IV SCH ×2 (00:55→06:32)
[2020-08-12] MEDS: Levothyroxine 88 MCG Tab PO SCH (06:31)
[2020-08-12] MEDS: methylPREDNISolone Sodium Succinate 40 MG/1 ML SDV IVPUSH SCH (06:31)
[2020-08-12] MEDS: Insulin Aspart 100 Units/ML 3 ML Pen SUBCUT SCH ×2 (08:10→11:48)
[2020-08-12] MEDS: Furosemide 40 MG Tab PO SCH (08:12)
[2020-08-12] MEDS: Metoprolol Succinate 25 MG Tab.ER PO SCH (08:12)
[2020-08-12] MEDS: Amiodarone 200 MG Tab PO SCH (08:12)
[2020-08-12] MEDS: Aspirin 81 MG Tab.Chew PO SCH (08:12)
[2020-08-12] MEDS: Apixaban 5 MG Tab PO SCH (08:12)
[2020-08-12 08:37] LABS: CARBON DIOXIDE,CO2 30.5 mmol/L (21.0-32.0); POTASSIUM,K 3.7 mmol/L (3.5-5.1)
--- NOTE | 2020-08-12 09:18 | PCM.DCSUM1 ---
Discharge Summary - Hospital Course Diagnosis: Stroke: No Modified Ty Scale: No Symptoms at All Modified Ty Scale Score: 0 - Discharge Data Discharge Date: 08/12/20 Discharge Disposition: Home, Self-Care 01 Condition: Good - Referral to Home Health Primary Care Physician: Dejan Horowitz MD - Discharge Diagnosis/Problem(s) (1) Healthcare-associated pneumonia SNOMED Code(s): 114057283, 024246621 ICD Code: J18.9 - PNEUMONIA, UNSPECIFIED ORGANISM Status: Acute Current Visit: Yes (2) History of CHF (congestive heart failure) SNOMED Code(s): 570046239 ICD Code: Z86.79 - PERSONAL HISTORY OF OTHER DISEASES OF THE CIRCULATORY SYSTEM Status: Chronic Current Visit: Yes (3) COPD exacerbation SNOMED Code(s): 620261859 ICD Code: J44.1 - CHRONIC OBSTRUCTIVE PULMONARY DISEASE W (ACUTE) EXACERBATION Status: Acute Current Visit: Yes (4) Acute respiratory failure with hypoxia SNOMED Code(s): 90906930, 538783001 ICD Code: J96.01 - ACUTE RESPIRATORY FAILURE WITH HYPOXIA Status: Acute Current Visit: No (5) Anemia SNOMED Code(s): 122090090 ICD Code: D64.9 - ANEMIA, UNSPECIFIED Status: Acute Current Visit: No (6) Atrial fibrillation SNOMED Code(s): 95981529 ICD Code: I48.91 - UNSPECIFIED ATRIAL FIBRILLATION Status: Acute Current Visit: No Qualifiers: Atrial fibrillation type: unspecified Qualified Code(s): I48.91 - Unspe cified atrial fibrillation (7) Hypothyroidism SNOMED Code(s): 20749661 ICD Code: E03.9 - HYPOTHYROIDISM, UNSPECIFIED Status: Acute Current Visit: No Qualifiers: Hypothyroidism type: unspecified Qualified Code(s): E03.9 - Hypothyroidism, unspecified (8) DM type 2 (diabetes mellitus, type 2) SNOMED Code(s): 57325273 ICD Code: E11.9 - TYPE 2 DIABETES MELLITUS WITHOUT COMPLICATIONS Status: Acute Current Visit: Yes - Patient Summary/Data Hospital Course: Admission diagnoses Acute on chronic hypoxic respiratory failure Healthcare associated pneumonia COPD exacerbation Discharge diagnoses Acute on chronic hypoxic respiratory failure Healthcare associated pneumonia COPD exacerbation Other PMH: HTN A. fib HLD Chronic anticoagulation Hypothyroidism Rebekah was admitted secondary to acute on chronic hypoxic respiratory failure HCAP and COPD exacerbation. She was recently discharged from [facility] secondary to COPD exacerbation. She was discharged home with 3 L nasal cannula oxygen. At home she had noticed oxygen needs increasing to upwards of 8 L. She came in to the ER for evaluation noted to have likely COPD exacerbation as well as pneumonia. She was started on vancomycin and Zosyn. She was slowly weaned down back to 2 to 3 L nasal cannula. EVERETTE improved with gentle fluids. She is doing much better today and is requesting discharge. She will be discharged home on Levaquin 750 every 48 hours x 2 more doses. She is to continue taking all home medications with no changes. She will remain on 2 to 3 L nasal cannula oxygen at home. She will also have prednisone taper lasting 2 weeks. She is to follow-up with PCP Dr. horowitz in 1 to 2 weeks. She is to return to the ER or clinic if concerns should arise. - Patient Instructions Diet: Usual Diet as Tolerated Activity: As Tolerated, No Strenuous Activities, Rest and Relax Today Driving: Do Not Drive (today) Showering/Bathing: May Shower Notify Provider of: Fever, Increased Pain, Swelling and Redness, Drainage, Nausea and/or Vomiting - Discharge Plan *PRESCRIPTION DRUG MONITORING PROGRAM REVIEWED*: Not Applicable *COPY OF PRESCRIPTION DRUG MONITORING REPORT IN PATIENT BLANCO: Not Applicable Prescriptions/Med Rec: levoFLOXacin [Levaquin] 750 mg PO Q48H #2 tab predniSONE [Prednisone] 10 - 40 mg PO DAILY #30 tab Home Medications: Home Meds Simvastatin [Zocor] 40 mg PO BEDTIME 02/20/17 [History] dilTIAZem HCL [Dilt-Xr] 240 mg PO DAILY 02/20/17 [History] Doxazosin Mesylate [Cardura] 2 mg PO BEDTIME 03/17/19 [History] Levothyroxine Sodium 88 mcg PO ACBREAKFAST 03/17/19 [History] Losartan [Cozaar] 100 mg PO DAILY 05/20/20 [History] Albuterol [Ventolin HFA] 2 puff INH BID PRN 06/08/20 [History] Amiodarone [Cordarone] 200 mg PO DAILY 06/08/20 [History] Apixaban [Eliquis] 5 mg PO BID 06/08/20 [History] Aspirin 81 mg PO DAILY 06/08/20 [History] Metoprolol Succinate [Toprol Xl] 25 mg PO DAILY 06/08/20 [History] amLODIPine Besylate [Amlodipine Besylate] 10 mg PO DAILY 06/08/20 [History] hydroCHLOROthiazide [Hydrochlorothiazide] 25 mg PO DAILY 06/08/20 [History] Furosemide [Lasix] 40 mg PO DAILY 08/10/20 [History] Gabapentin [Neurontin] 200 mg PO BID 08/10/20 [History] Liraglutide [Victoza] 1.8 mg SUBCUT DAILY 08/10/20 [History] Potassium Chloride [Klor-Con M20] 20 meq PO DAILY 08/10/20 [History] Pregabalin [Lyrica] 50 mg PO BID 08/10/20 [History] levoFLOXacin [Levaquin] 750 mg PO Q48H #2 tab 08/12/20 [Rx] predniSONE [Prednisone] 10 - 40 mg PO DAILY #30 tab 08/12/20 [Rx] Oxygen Therapy Mode: Nasal Cannula Oxygen Flow Rate (L/min): 3 Maintain SpO2% greater than: 88 Patient Handouts: Chronic Obstructive Pulmonary Disease, [id number], Levofloxacin tablets, Prednisone tablets, Community-Acquired Pneumonia, Adult, [id number] Referrals: Dejan Horowitz MD [Primary Care Provider] - 08/29/20 1:45 pm - Discharge Summary/Plan Comment DC Time >30 min.: No - General Info Date of Service: 08/12/20 Admission Dx/Problem (Free Text: - Patient Data Vitals - Most Recent: Last Vital Signs Temp 98.4 F 08/12/20 07:31 Pulse 66 08/12/20 08:12 Resp 16 08/12/20 07:31 BP 148/68 H 08/12/20 08:12 Pulse Ox 93 L 08/12/20 07:31 Weight - Most Recent: 79.742 kg I&O - Last 24 hours: Intake & Output 08/11/20 08/12/20 08/12/20 22:59 06:59 14:59 Intake Total 500 650 Output Total 1450 575 Balance -950 75 Lab Results - Last 24 hrs: Laboratory Results - last 24 hr 08/11/20 08/11/20 08/11/20 Range/Units 08:53 08:53 08:53 WBC 8.57 (4.0-11.0) K/uL RBC 3.47 L (4.30-5.90) M/uL Hgb 8.9 L (12.0-16.0) g/dL Hct 29.5 L (36.0-46.0) % MCV 85.0 (80.0-98.0) fL MCH 25.6 L (27.0-32.0) pg MCHC 30.2 L (31.0-37.0) g/dL RDW Std Deviation 48.3 (28.0-62.0) fl RDW Coeff of Batool 16 H (11.0-15.0) % Plt Count 462 H (150-400) K/uL MPV 11.30 (7.40-12.00) fL Neut % (Auto) 87.9 H (48.0-80.0) % Lymph % (Auto) 9.9 L (16.0-40.0) % Snyder % (Auto) 2.2 (0.0-15.0) % Eos % (Auto) 0.0 (0.0-7.0) % Baso % (Auto) 0.0 (0.0-1.5) % Neut # (Auto) 7.5 H (1.4-5.7) K/uL Lymph # (Auto) 0.9 (0.6-2.4) K/uL Snyder # (Auto) 0.2 (0.0-0.8) K/uL Eos # (Auto) 0.0 (0.0-0.7) K/uL Baso # (Auto) 0.0 (0.0-0.1) K/uL Nucleated RBC % 0.0 /100WBC Nucleated RBCs # 0 K/uL Sodium 140 (136-145) mmol/L Potassium 4.0 (3.5-5.1) mmol/L Chloride 101 (98-107) mmol/L Carbon Dioxide 29.0 (21.0-32.0) mmol/L BUN 45 H (7.0-18.0) mg/dL Creatinine 1.9 H (0.6-1.0) mg/dL Est Cr Clr Drug Dosing 18.88 mL/min Estimated GFR (MDRD) 25.3 ml/min Glucose 200 H (74-106) mg/dL POC Glucose (60-110) mg/dL Calcium 9.8 (8.5-10.1) mg/dL Magnesium (1.8-2.4) mg/dL Vancomycin Trough 10.6 H (5.0-10.0) ug/mL 08/11/20 08/11/20 08/11/20 Range/Units 11:52 17:15 20:48 WBC (4.0-11.0) K/uL RBC (4.30-5.90) M/uL Hgb (12.0-16.0) g/dL Hct (36.0-46.0) % MCV (80.0-98.0) fL MCH (27.0-32.0) pg MCHC (31.0-37.0) g/dL RDW Std Deviation (28.0-62.0) fl RDW Coeff of Batool (11.0-15.0) % Plt Count (150-400) K/uL MPV (7.40-12.00) fL Neut % (Auto) (48.0-80.0) % Lymph % (Auto) (16.0-40.0) % Snyder % (Auto) (0.0-15.0) % Eos % (Auto) (0.0-7.0) % Baso % (Auto) (0.0-1.5) % Neut # (Auto) (1.4-5.7) K/uL Lymph # (Auto) (0.6-2.4) K/uL Snyder # (Auto) (0.0-0.8) K/uL Eos # (Auto) (0.0-0.7) K/uL Baso # (Auto) (0.0-0.1) K/uL Nucleated RBC % /100WBC Nucleated RBCs # K/uL Sodium (136-145) mmol/L Potassium (3.5-5.1) mmol/L Chloride (98-107) mmol/L Carbon Dioxide (21.0-32.0) mmol/L BUN (7.0-18.0) mg/dL Creatinine (0.6-1.0) mg/dL Est Cr Clr Drug Dosing mL/min Estimated GFR (MDRD) ml/min Glucose (74-106) mg/dL POC Glucose 179 H 161 H 269 H (60-110) mg/dL Calcium (8.5-10.1) mg/dL Magnesium (1.8-2.4) mg/dL Vancomycin Trough (5.0-10.0) ug/mL 08/12/20 08/12/20 08/12/20 Range/Units 05:33 07:59 07:59 WBC 13.58 H (4.0-11.0) K/uL RBC 3.26 L (4.30-5.90) M/uL Hgb 8.6 L (12.0-16.0) g/dL Hct 27.6 L (36.0-46.0) % MCV 84.7 (80.0-98.0) fL MCH 26.4 L (27.0-32.0) pg MCHC 31.2 (31.0-37.0) g/dL RDW Std Deviation 48.6 (28.0-62.0) fl RDW Coeff of Batool 16 H (11.0-15.0) % Plt Count 457 H (150-400) K/uL MPV 10.80 (7.40-12.00) fL Neut % (Auto) 87.4 H (48.0-80.0) % Lymph % (Auto) 7.7 L (16.0-40.0) % Snyder % (Auto) 4.8 (0.0-15.0) % Eos % (Auto) 0.0 (0.0-7.0) % Baso % (Auto) 0.1 (0.0-1.5) % Neut # (Auto) 11.9 H (1.4-5.7) K/uL Lymph # (Auto) 1.0 (0.6-2.4) K/uL Snyder # (Auto) 0.7 (0.0-0.8) K/uL Eos # (Auto) 0.0 (0.0-0.7) K/uL Baso # (Auto) 0.0 (0.0-0.1) K/uL Nucleated RBC % 0.0 /100WBC Nucleated RBCs # 0 K/uL Sodium 142 (136-145) mmol/L Potassium 3.7 (3.5-5.1) mmol/L Chloride 105 (98-107) mmol/L Carbon Dioxide 30.5 (21.0-32.0) mmol/L BUN 41 H (7.0-18.0) mg/dL Creatinine 1.7 H (0.6-1.0) mg/dL Est Cr Clr Drug Dosing 21.11 mL/min Estimated GFR (MDRD) 28.8 ml/min Glucose 186 H (74-106) mg/dL POC Glucose 182 H (60-110) mg/dL Calcium 9.8 (8.5-10.1) mg/dL Magnesium 2.3 (1.8-2.4) mg/dL Vancomycin Trough (5.0-10.0) ug/mL WANDA Results - Last 24 hrs: Microbiology 08/10/20 05:48 Aerobic Blood Culture - Preliminary Blood - Venous Anaerobic Blood Culture - Preliminary NO GROWTH AFTER 2 DAYS 08/10/20 05:53 Aerobic Blood Culture - Preliminary Blood - Venous - Lab Draw NO GROWTH AFTER 2 DAYS Anaerobic Blood Culture - Preliminary NO GROWTH AFTER 2 DAYS Med Orders - Current: Current Medications Acetaminophen (Tylenol) 650 mg PO Q4H PRN PRN Reason: Pain/Fever Albuterol/Ipratropium (Duoneb 3.0-0.5 Mg/3 Ml) 3 ml NEB Q4HRRT PRN PRN Reason: Shortness of Breath Last Admin: 08/11/20 17:52 Dose: 3 ml Documented by: Amiodarone HCl (Cordarone) 200 mg PO DAILY [facility] Last Admin: 08/12/20 08:12 Dose: 200 mg Documented by: Apixaban (Eliquis) 5 mg PO BID [facility] Last Admin: 08/12/20 08:12 Dose: 5 mg Documented by: Aspirin (Aspirin) 81 mg PO DAILY [facility] Last Admin: 08/12/20 08:12 Dose: 81 mg Documented by: Dextrose/Water (Dextrose 50% In Water) 50 ml IVPUSH ASDIRECTED PRN PRN Reason: Hypoglycemia Doxazosin Mesylate (Cardura) 2 mg PO BEDTIME [facility] Last Admin: 08/11/20 20:30 Dose: 2 mg Documented by: Furosemide (Lasix) 40 mg PO DAILY [facility] Last Admin: 08/12/20 08:12 Dose: 40 mg Documented by: Glucagon (Glucagen) 1 mg IM ASDIRECTED PRN PRN Reason: Hypoglycemia Guaifenesin (Robitussin) 200 mg PO Q4H PRN PRN Reason: Cough Piperacillin Sod/Tazobactam (Sod 2.25 gm/ Sodium Chloride) 50 mls @ 100 mls/hr IV Q6H [facility] Last Admin: 08/12/20 06:32 Dose: 100 mls/hr Documented by: Vancomycin HCl 1.25 gm/ Sodium (Chloride) 250 mls @ 166.667 mls/hr IV Q24H [facility] Last Admin: 08/11/20 14:02 Dose: 166.667 mls/hr Documented by: Insulin Aspart (Novolog) 0 unit SUBCUT TIDAC [facility]; Protocol Last Admin: 08/12/20 08:10 Dose: 2 units Documented by: Levothyroxine Sodium (Synthroid) 88 mcg PO ACBREAKFAST [facility] Last Admin: 08/12/20 06:31 Dose: 88 mcg Documented by: Methylprednisolone Sodium Succinate (Solu-Medrol) 40 mg IVPUSH Q12H [facility] Last Admin: 08/12/20 06:31 Dose: 40 mg Documented by: Metoprolol Succinate (Toprol Xl) 25 mg PO DAILY [facility] Last Admin: 08/12/20 08:12 Dose: 25 mg Documented by: Sodium Chloride (Saline Flush) 10 ml FLUSH ASDIRECTED PRN PRN Reason: Keep Vein Open Sodium Chloride (Saline Flush) 2.5 ml FLUSH ASDIRECTED PRN PRN Reason: Keep Vein Open Vancomycin HCl (Pharmacy To Dose - Vancomycin) 1 dose .XX ASDIRECTED [facility] Discontinued Medications Albuterol/Ipratropium (Duoneb 3.0-0.5 Mg/3 Ml) Confirm Administered Dose 3 ml .ROUTE .STK-MED ONE Stop: 08/10/20 03:47 Last Admin: 08/10/20 04:08 Dose: Not Given Documented by: Albuterol/Ipratropium (Duoneb 3.0-0.5 Mg/3 Ml) 3 ml NEB ONETIME ONE Stop: 08/10/20 04:04 Last Admin: 08/10/20 04:07 Dose: 3 ml Documented by: Dextrose/Water (Dextrose 50% In Water) 50 ml IV ASDIRECTED PRN PRN Reason: Hypoglycemia Furosemide (Lasix) 20 mg IVPUSH ONETIME ONE Stop: 08/10/20 12:54 Last Admin: 08/10/20 13:04 Dose: 20 mg Documented by: Cefepime HCl 2 gm/ Premix 50 mls @ 100 mls/hr IV ONETIME ONE Stop: 08/10/20 05:58 Last Admin: 08/10/20 05:52 Dose: 100 mls/hr Documented by: Vancomycin HCl 1.5 gm/ Premix 300 mls @ 300 mls/hr IV ONETIME ONE Stop: 08/10/20 06:59 Last Admin: 08/10/20 06:58 Dose: 300 mls/hr Documented by: Piperacillin Sod/Tazobactam (Sod 2.25 gm/ Sodium Chloride) 50 mls @ 100 mls/hr IV Q6H [facility] Last Admin: 08/10/20 13:06 Dose: Not Given Documented by: Vancomycin HCl 1.25 gm/ Sodium (Chloride) 250 mls @ 166.667 mls/hr IV Q24H [facility] Last Admin: 08/11/20 13:24 Dose: Not Given Documented by: Methylprednisolone Sodium Succinate (Solu-Medrol) 80 mg IVPUSH ONETIME ONE Stop: 08/10/20 05:27 Last Admin: 08/10/20 05:51 Dose: 80 mg Documented by: Methylprednisolone Sodium Succinate (Solu-Medrol) 40 mg IVPUSH Q8H [facility] Last Admin: 08/11/20 06:18 Dose: 40 mg Documented by: Vancomycin HCl (Pharmacy To Dose - Vancomycin) 1 dose .XX ONETIME ONE Stop: 08/10/20 05:31 Last Admin: 08/10/20 07:44 Dose: Not Given Documented by:
[2020-08-12] MEDS ORDERED: Ondansetron 4 MG/2 ML SDV IVPUSH PRN (09:48)
[2020-08-12 11:36] VITALS: BP 142/58; PULSE 54
== END 2020-08-12 14:15 | disposition home or self-care (01) ==
LOC: MW.ED 03:25 → MW.MS 05:27
PROVIDERS: ADMIT Student in an Organized Health Care Education/Training Program; ATTEND Student in an Organized Health Care Education/Training Program
DX: J96.21 Acute and chronic respiratory failure with hypoxia (principal); J18.9 Pneumonia, unspecified organism; J44.1 Chronic obstructive pulmonary disease with (acute) exacerbation; I48.91 Unspecified atrial fibrillation; I11.0 Hypertensive heart disease with heart failure; I50.9 Heart failure, unspecified; G89.29 Other chronic pain; E78.00 Pure hypercholesterolemia, unspecified; E11.9 Type 2 diabetes mellitus without complications; E03.9 Hypothyroidism, unspecified; D64.9 Anemia, unspecified; N17.9 Acute kidney failure, unspecified; Z79.01 Long term (current) use of anticoagulants; Z88.8 Allergy status to other drugs, medicaments and biological substances; Z79.899 Other long term (current) drug therapy; Z79.82 Long term (current) use of aspirin; Z79.890 Hormone replacement therapy; Z20.828 Contact with and (suspected) exposure to other viral communicable diseases
CPT/HCPCS: 36415; 71045; 80048; 80053; 80202; 82962; 83735; 83880; 84145; 84484; 85025; 85379; 87040; 87635; 93005; 94640; 96374; 96375; 99285; A9270; J0692; J1815; J1940; J2405; J2543; J2920; J2930; J3370; J7050; 93010; 96365; 96376; 99221; 99232; 99238; G0378; J7620-GY; U0002

== ENCOUNTER 2020-09-27 08:20 | Emergency (ER) | payer BC ==
--- NOTE | 2020-09-27 08:36 | EDM.PDOC ---
ED HPI GENERAL MEDICAL PROBLEM - General Chief Complaint: Chest Pain Stated Complaint: TROUBLE BREATHING Time Seen by Provider: 09/27/20 08:33 Source of Information: Reports: Patient History Limitations: Reports: No Limitations - History of Present Illness INITIAL COMMENTS - FREE TEXT/NARRATIVE: Is an 80-year-old female presents today for shortness of breath. Patient that she has also lower extremity swelling going up to her lower abdomen. Patient states he takes 2 water pills has not been relieved no swelling. Patient that she has difficulty when she lays down to breathe. Patient also reports now that she has some right-sided chest pain only when she has to take a deep breath. Patient denies any chest pain at rest nausea vomiting or other complaints. chest Pain Score (Numeric/FACES): 5 - Related Data Allergies Allergy/AdvReac Type Severity Reaction Status Date / Time lisinopril Allergy Cough Verified 09/27/20 08:45 nitrofurantoin Allergy Rash Verified 09/27/20 08:45 [From Macrobid] pollen extracts Allergy watery eyes Verified 09/27/20 08:45 Home Meds: Home Meds Simvastatin [Zocor] 40 mg PO BEDTIME 02/20/17 [History] dilTIAZem HCL [Dilt-Xr] 240 mg PO DAILY 02/20/17 [History] Doxazosin Mesylate [Cardura] 2 mg PO BEDTIME 03/17/19 [History] Levothyroxine Sodium 88 mcg PO ACBREAKFAST 03/17/19 [History] Losartan [Cozaar] 100 mg PO DAILY 05/20/20 [History] Albuterol [Ventolin HFA] 2 puff INH BID PRN 06/08/20 [History] Amiodarone [Cordarone] 200 mg PO DAILY 06/08/20 [History] Apixaban [Eliquis] 5 mg PO BID 06/08/20 [History] Aspirin 81 mg PO DAILY 06/08/20 [History] Metoprolol Succinate [Toprol Xl] 25 mg PO DAILY 06/08/20 [History] amLODIPine Besylate [Amlodipine Besylate] 10 mg PO DAILY 06/08/20 [History] hydroCHLOROthiazide [Hydrochlorothiazide] 25 mg PO DAILY 06/08/20 [History] Furosemide [Lasix] 40 mg PO DAILY 08/10/20 [History] Gabapentin [Neurontin] 200 mg PO BID 08/10/20 [History] Liraglutide [Victoza] 1.8 mg SUBCUT DAILY 08/10/20 [History] Potassium Chloride [Klor-Con M20] 20 meq PO DAILY 08/10/20 [History] Pregabalin [Lyrica] 50 mg PO BID 08/10/20 [History] levoFLOXacin [Levaquin] 750 mg PO Q48H #2 tab 08/12/20 [Rx] predniSONE [Prednisone] 10 - 40 mg PO DAILY #30 tab 08/12/20 [Rx] Past Medical History HEENT History: Reports: Cataract Other HEENT History: wears glasses, has upper and lower dentures Cardiovascular History: Reports: Arrhythmia, High Cholesterol, Hypertension, Other (See Below) Other Cardiovascular History: hx of PAC's per chart, 50% stenosis in left Carotid Artery per chart Respiratory History: Reports: COPD Other Respiratory History: was told she had COPD because she smoked in the past- no symptoms and no medication Gastrointestinal History: Reports: GERD, Hiatal Hernia Genitourinary History: Reports: None NETWORK MANAGER History: Reports: None Musculoskeletal History: Reports: Osteoarthritis Other Musculoskeletal History: hx fx leg and ankle Neurological History: Reports: Concussion Psychiatric History: Reports: None Endocrine/Metabolic History: Reports: Diabetes, Type II, Hypothyroidism, Vitamin D Deficiency Insulin Pump Model and Program Advisor: None Hematologic History: Reports: Blood Transfusion(s) Immunologic History: Reports: None Oncologic (Cancer) History: Reports: Breast Dermatologic History: Reports: Other (See Below) 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 - Infectious Disease History Infectious Disease History: Reports: None - Past Surgical History Head Surgeries/Procedures: Reports: None HEENT Surgical History: Reports: Cataract Surgery, Laser Surgery Other HEENT Surgeries/Procedures: had laser done for "pressure in eyes" Cardiovascular Surgical History: Reports: Other (See Below) Other Cardiovascular Surgeries/Procedures: Angiogram - 2020 Respiratory Surgical History: Reports: None GI Surgical History: Reports: Appendectomy, Colon, Colonoscopy, EGD Other GI Surgeries/Procedures: hx of partial Colectomy because of ruptured appendix as a child Female Surgical History: Reports: Hysterectomy, Mastectomy, Salpingo- Oophorectomy Other Female Surgeries/Procedures: right Modified Radical mastectomy, left Simple Mastectomy Endocrine Surgical History: Reports: None Musculoskeletal Surgical History: Reports: Knee Replacement, ORIF Other Musculoskeletal Surgeries/Procedures:: Bilateral TKA (revision of right knee x2), ORIF left ankle - has screws Social & Family History - Family History Family Medical History: No Pertinent Family History - Caffeine Use Caffeine Use: Reports: Tea ED ROS GENERAL - Review of Systems Review Of Systems: See Below Constitutional: Reports: No Symptoms HEENT: Reports: No Symptoms Respiratory: Reports: Shortness of Breath Cardiovascular: Reports: No Symptoms Endocrine: Reports: No Symptoms GI/Abdominal: Reports: No Symptoms : Reports: No Symptoms Musculoskeletal: Reports: No Symptoms Skin: Reports: No Symptoms Neurological: Reports: No Symptoms Psychiatric: Reports: No Symptoms Hematologic/Lymphatic: Reports: No Symptoms Immunologic: Reports: No Symptoms ED EXAM, GENERAL - Physical Exam Exam: See Below Exam Limited By: No Limitations General Appearance: Alert, WD/WN, No Apparent Distress Head: Atraumatic Respiratory/Chest: No Respiratory Distress, Rhonchi. No: Chest Non-Tender, Respiratory Distress Cardiovascular: Regular Rate, Rhythm GI/Abdominal: Normal Bowel Sounds, Soft, Non-Tender Extremities: Pedal Edema Neurological: Alert, Oriented #1 Interpretation EKG Date: 09/27/20 Time: 08:26 Rhythm: NSR Rate (Beats/Min): 83 ST-T: Normal Course - Vital Signs Last Recorded V/S: Last Vital Signs Temp 98.1 F 09/27/20 08:41 Pulse 86 09/27/20 08:41 Resp 16 09/27/20 08:41 BP 117/62 09/27/20 08:41 Pulse Ox 94 L 09/27/20 08:41 - Orders/Labs/Meds Orders: Active Orders 24 hr Category Date Time Status EKG 12 Lead [EKG Documentation Completion] [RC] STAT Care 09/27/20 08:48 Active COVID-19/FLU A+B [MOLEC] Stat Lab 09/27/20 10:04 Ordered Furosemide [Lasix] Med 09/27/20 10:38 Discontinued 40 mg IVPUSH NOW ONE Medication Orders Furosemide (Lasix) 40 mg IVPUSH NOW ONE Stop: 09/27/20 10:39 Labs: Laboratory Tests 09/27/20 09/27/20 09/27/20 Range/Units 08:25 08:25 08:25 WBC 11.18 H (4.0-11.0) K/uL RBC 3.11 L (4.30-5.90) M/uL Hgb 8.2 L (12.0-16.0) g/dL Hct 26.2 L (36.0-46.0) % MCV 84.2 (80.0-98.0) fL MCH 26.4 L (27.0-32.0) pg MCHC 31.3 (31.0-37.0) g/dL RDW Std Deviation 55.3 (28.0-62.0) fl RDW Coeff of Batool 18 H (11.0-15.0) % Plt Count 365 (150-400) K/uL MPV 11.30 (7.40-12.00) fL Neut % (Auto) 75.1 (48.0-80.0) % Lymph % (Auto) 12.7 L (16.0-40.0) % [place] % (Auto) 11.6 (0.0-15.0) % Eos % (Auto) 0.3 (0.0-7.0) % Baso % (Auto) 0.3 (0.0-1.5) % Neut # (Auto) 8.4 H (1.4-5.7) K/uL Lymph # (Auto) 1.4 (0.6-2.4) K/uL [place] # (Auto) 1.3 H (0.0-0.8) K/uL Eos # (Auto) 0.0 (0.0-0.7) K/uL Baso # (Auto) 0.0 (0.0-0.1) K/uL Nucleated RBC % 0.0 /100WBC Nucleated RBCs # 0 K/uL INR APTT (18.6-31.3) SEC Sodium 138 (136-145) mmol/L Potassium 3.3 L (3.5-5.1) mmol/L Chloride 98 (98-107) mmol/L Carbon Dioxide 31.5 (21.0-32.0) mmol/L BUN 53 H (7.0-18.0) mg/dL Creatinine 1.9 H (0.6-1.0) mg/dL Est Cr Clr Drug Dosing 18.88 mL/min Estimated GFR (MDRD) 25.3 ml/min Glucose 140 H (74-106) mg/dL Calcium 9.9 (8.5-10.1) mg/dL Magnesium 1.7 L (1.8-2.4) mg/dL Total Bilirubin 0.4 (0.2-1.0) mg/dL AST 44 H (15-37) IU/L ALT 52 (14-63) IU/L Alkaline Phosphatase 67 (46-116) U/L Creatine Kinase 28 (26-308) U/L Troponin I < 0.050 (0.000-0.056) ng/mL B-Natriuretic Peptide 518 H (<100) PG/ML Total Protein 7.6 (6.4-8.2) g/dL Albumin 3.4 (3.4-5.0) g/dL Globulin 4.2 H (2.6-4.0) g/dL Albumin/Globulin Ratio 0.8 L (0.9-1.6) Lipase 1641 H (73-393) U/L 09/27/20 Range/Units 08:25 WBC (4.0-11.0) K/uL RBC (4.30-5.90) M/uL Hgb (12.0-16.0) g/dL Hct (36.0-46.0) % MCV (80.0-98.0) fL MCH (27.0-32.0) pg MCHC (31.0-37.0) g/dL RDW Std Deviation (28.0-62.0) fl RDW Coeff of Batool (11.0-15.0) % Plt Count (150-400) K/uL MPV (7.40-12.00) fL Neut % (Auto) (48.0-80.0) % Lymph % (Auto) (16.0-40.0) % [place] % (Auto) (0.0-15.0) % Eos % (Auto) (0.0-7.0) % Baso % (Auto) (0.0-1.5) % Neut # (Auto) (1.4-5.7) K/uL Lymph # (Auto) (0.6-2.4) K/uL [place] # (Auto) (0.0-0.8) K/uL Eos # (Auto) (0.0-0.7) K/uL Baso # (Auto) (0.0-0.1) K/uL Nucleated RBC % /100WBC Nucleated RBCs # K/uL INR 1.16 APTT 32.3 H (18.6-31.3) SEC Sodium (136-145) mmol/L Potassium (3.5-5.1) mmol/L Chloride (98-107) mmol/L Carbon Dioxide (21.0-32.0) mmol/L BUN (7.0-18.0) mg/dL Creatinine (0.6-1.0) mg/dL Est Cr Clr Drug Dosing mL/min Estimated GFR (MDRD) ml/min Glucose (74-106) mg/dL Calcium (8.5-10.1) mg/dL Magnesium (1.8-2.4) mg/dL Total Bilirubin (0.2-1.0) mg/dL AST (15-37) IU/L ALT (14-63) IU/L Alkaline Phosphatase (46-116) U/L Creatine Kinase (26-308) U/L Troponin I (0.000-0.056) ng/mL B-Natriuretic Peptide (<100) PG/ML Total Protein (6.4-8.2) g/dL Albumin (3.4-5.0) g/dL Globulin (2.6-4.0) g/dL Albumin/Globulin Ratio (0.9-1.6) Lipase (73-393) U/L Meds: Medications Generic Name Dose Route Start Last Admin Trade Name Freq PRN Reason Stop Dose Admin Furosemide 40 mg 09/27/20 10:38 Lasix IVPUSH 09/27/20 10:39 NOW ONE Discontinued Medications Generic Name Dose Route Start Last Admin Trade Name Freq PRN Reason Stop Dose Admin Furosemide 40 mg 09/27/20 08:54 09/27/20 09:30 Lasix IVPUSH 09/27/20 08:55 40 mg NOW ONE Administration - Re-Assessments/Exams Free Text/Narrative Re-Assessment/Exam: 09/27/20 10:40 Patient x-ray show some improvement of her pleural effusions. Also feels and is breathing better. Added IV lasix. Patient will be discharged home and can follow-up with cardiology as outpatient. Patient is okay with this plan and prefer to be discharged she is feeling better as opposed to be admitted. Departure - Departure Time of Disposition: 10:40 Disposition: Home, Self-Care 01 Condition: Good Clinical Impression: CHF (congestive heart failure) - Discharge Information *PRESCRIPTION DRUG MONITORING PROGRAM REVIEWED*: Not Applicable *COPY OF PRESCRIPTION DRUG MONITORING REPORT IN PATIENT BLANCO: Not Applicable Instructions: Heart Failure, Diagnosis, [id number] Referrals: Dejan Duff MD [Primary Care Provider] - Forms: ED Department Discharge Additional Instructions: The following information is given to patients seen in the emergency department who are being discharged to home. This information is to outline your options for follow-up care. We provide all patients seen in our emergency department with a follow-up referral. The need for follow-up, as well as the timing and circumstances, are variable depending upon the specifics of your emergency department visit. If you don't have a primary care physician on staff, we will provide you with a referral. We always advise you to contact your personal physician following an emergency department visit to inform them of the circumstance of the visit and for follow-up with them and/or the need for any referrals to a consulting specialist. The emergency department will also refer you to a specialist when appropriate. This referral assures that you have the opportunity for follow-up care with a specialist. All of these measure are taken in an effort to provide you with optimal care, which includes your follow-up. Under all circumstances we always encourage you to contact your private physician who remains a resource for coordinating your care. When calling for follow-up care, please make the office aware that this follow-up is from your recent emergency room visit. If for any reason you are refused follow-up, please contact the [facility] Emergency Department at and asked to speak to the emergency department charge nurse. Please follow up with your primary care physician. If you do not have a primary care physician, see below: Cardiac Rehabilitation at [address] [id number] Please follow-up with your paste mixer liquid. If you have any increased shortness of breath or chest pain please return to the emergency department. Sepsis Event Note (ED) - Focused Exam Vital Signs: Vital Signs Temp Pulse Resp BP Pulse Ox 09/27/20 08:41 98.1 F 86 16 117/62 94 L - My Orders Last 24 Hours: My Active Orders 09/27/20 08:48 EKG 12 Lead [EKG Documentation Completion] [RC] STAT 09/27/20 10:04 COVID-19/FLU A+B [MOLEC] Stat 09/27/20 10:38 Furosemide [Lasix] 40 mg IVPUSH NOW ONE - Assessment/Plan Last 24 Hours: My Active Orders 09/27/20 08:48 EKG 12 Lead [EKG Documentation Completion] [RC] STAT 09/27/20 10:04 COVID-19/FLU A+B [MOLEC] Stat 09/27/20 10:38 Furosemide [Lasix] 40 mg IVPUSH NOW ONE Assessment:: Patient is an 80-year-old female who presents today for shortness of breath. Patient has significant lower extremity swelling up to the mid thigh. Will get x-ray labs and reassess and also give IV Lasix.
[2020-09-27] MEDS ORDERED: Furosemide 40 MG/4 ML VIAL IVPUSH ONE ×2 (08:54→10:38)
[2020-09-27 09:19] LABS: BLOOD UREA NITROGEN,BUN 53 mg/dL (7.0-18.0); CARBON DIOXIDE,CO2 31.5 mmol/L (21.0-32.0); CHLORIDE,CL 98 mmol/L (98-107); GLUCOSE RANDOM 140 mg/dL (74-106); POTASSIUM,K 3.3 mmol/L (3.5-5.1); SODIUM,NA 138 mmol/L (136-145)
[2020-09-27 09:28] LABS: LIPASE 1641 U/L (73-393)
--- NOTE | 2020-09-27 09:33 | CR ---
INDICATION: Pain. Dyspnea. History of CHF COMPARISON: August 10, 2020 TECHNIQUE: Single-view portable chest radiograph FINDINGS: TUBES AND LINES: None. HEART AND MEDIASTINUM: The heart is enlarged but appears unchanged. LUNGS AND PLEURAL SPACES: [id number] multifocal airspace disease primarily right midlung, right base and left perihilar. While this was present before, it has improved. It is unclear whether this is recurrent disease or residual disease.Clinical correlation and follow-up advised. No definite pleural effusion or pneumothorax OSSEOUS STRUCTURES: Age-appropriate appearance. No acute focal finding. IMPRESSION: Patchy bilateral airspace disease, right greater than left. This could be inflammatory or the asymmetric appearance of edema. The appearance has improved since August 10, 2020 though this may represent recurrent rather than residual disease. Dictated by Merrill Begum MD @ Sep 27 2020 9:27AM Signed by Dr. Merrill Begum @ Sep 27 2020 9:32AM
[2020-09-27 13:04] VITALS: BP 111/45; PULSE 70
== END 2020-09-27 11:10 | disposition home or self-care (01) ==
LOC: MW.ED 08:20
DX: I11.0 Hypertensive heart disease with heart failure (principal); I50.9 Heart failure, unspecified; E78.00 Pure hypercholesterolemia, unspecified; J44.9 Chronic obstructive pulmonary disease, unspecified; M19.90 Unspecified osteoarthritis, unspecified site; E11.9 Type 2 diabetes mellitus without complications; E03.9 Hypothyroidism, unspecified; Z88.8 Allergy status to other drugs, medicaments and biological substances; Z88.1 Allergy status to other antibiotic agents; Z91.048 Other nonmedicinal substance allergy status; Z79.82 Long term (current) use of aspirin; Z79.899 Other long term (current) drug therapy; Z79.01 Long term (current) use of anticoagulants
CPT/HCPCS: 36415; 71045; 80053; 82550; 83690; 83735; 83880; 84484; 85025; 85610; 85730; 93005; 96374; 96376; 99285; J1940; 93010; 99284

== ENCOUNTER 2021-10-22 14:32 | Inpatient (IN) | payer BC, MEDICARE ==
[2021-10-22 16:37] LABS: BLOOD UREA NITROGEN,BUN 34 mg/dL (7.0-18.0); CARBON DIOXIDE,CO2 21.5 mmol/L (21.0-32.0); CHLORIDE,CL 102 mmol/L (98-107); GLUCOSE RANDOM 107 mg/dL (74-106); SODIUM,NA 135 mmol/L (136-145)
[2021-10-22 16:44] LABS: CORONAVIRUS COVID-19 NAA NEGATIVE (NEGATIVE); INFLUENZA A NAA NEGATIVE (NEGATIVE); INFLUENZA B NAA NEGATIVE (NEGATIVE)
[2021-10-22] MEDS ORDERED: Pantoprazole 80 MG in Sodium Chloride 0.9% 10 ML IVPUSH ONE (18:32)
[2021-10-22] MEDS ORDERED: Albuterol/Ipratropium 3.0-0.5 MG/3 ML Neb Soln NEB PRN (20:27)
[2021-10-22] MEDS ORDERED: Ondansetron 4 MG/2 ML SDV IVPUSH PRN (20:27)
[2021-10-22] MEDS ORDERED: Lactated Ringers 1,000 ML IV SCH (20:30)
[2021-10-22] MEDS ORDERED: Non-Formulary Medication 1 Each (Simvastatin [Zocor] 80 MG Tablet) PO SCH (21:00)
[2021-10-22] MEDS ORDERED: Furosemide 20 MG/2 ML VIAL IVPUSH ONE (22:48)
[2021-10-22] MEDS ORDERED: Albuterol/Ipratropium 4 GM Inhalation Spray INH PRN (22:50)
[2021-10-23] MEDS ORDERED: LORazepam 2 MG/ML SDV IVPUSH ONE (02:53)
[2021-10-23] MEDS: Pantoprazole 40 MG in Sodium Chloride 0.9% 10 ML IVPUSH SCH ×3 (02:54→21:32)
[2021-10-23 08:13] LABS: CARBON DIOXIDE,CO2 20.4 mmol/L (21.0-32.0); POTASSIUM,K 4.2 mmol/L (3.5-5.1)
[2021-10-23] MEDS ORDERED: Furosemide 40 MG Tab PO SCH (09:00)
[2021-10-23] MEDS ORDERED: Magnesium Sulfate/Water 2 GM in Premix Bag 1 BAG IV ONE (12:23)
[2021-10-23] MEDS ORDERED: Furosemide 20 MG/2 ML VIAL IVPUSH ONE ×2 (15:53→18:30)
[2021-10-23] MEDS: Simvastatin 40 MG Tab PO SCH (21:30)
[2021-10-23] MEDS: Doxazosin 4 MG Tab PO SCH (21:31)
[2021-10-23] MEDS ORDERED: Melatonin 3 MG Tab PO ONE (21:35)
[2021-10-23] MEDS: FELODIPINE 2.5 MG PO SCH (21:55)
[2021-10-24 07:07] LABS: CARBON DIOXIDE,CO2 25.3 mmol/L (21.0-32.0)
[2021-10-24] MEDS: Levothyroxine 88 MCG Tab PO SCH ×2 (07:48→07:51)
[2021-10-24] MEDS ORDERED: Furosemide 40 MG/4 ML VIAL IVPUSH ONE ×2 (08:40→14:50)
[2021-10-24] MEDS: Pantoprazole 40 MG in Sodium Chloride 0.9% 10 ML IVPUSH SCH ×2 (09:00→20:37)
[2021-10-24] MEDS ORDERED: Docusate Sodium 100 MG Cap PO PRN (09:15)
[2021-10-24] MEDS: Iron Polysaccharides Complex 150 MG Cap PO SCH (15:38)
[2021-10-24] MEDS: Doxazosin 4 MG Tab PO SCH (20:37)
[2021-10-24] MEDS: Simvastatin 40 MG Tab PO SCH (20:37)
[2021-10-24] MEDS: FELODIPINE 2.5 MG PO SCH (20:47)
[2021-10-25] MEDS: Levothyroxine 88 MCG Tab PO SCH ×2 (06:19→07:49)
[2021-10-25 07:31] LABS: CARBON DIOXIDE,CO2 27.5 mmol/L (21.0-32.0); POTASSIUM,K 3.4 mmol/L (3.5-5.1)
[2021-10-25] MEDS: Iron Polysaccharides Complex 150 MG Cap PO SCH (08:43)
[2021-10-25] MEDS: Pantoprazole 40 MG in Sodium Chloride 0.9% 10 ML IVPUSH SCH (08:43)
[2021-10-25] MEDS ORDERED: Furosemide 80 MG Tab PO SCH (09:00)
[2021-10-25] MEDS ORDERED: Acetaminophen/HYDROcodone 325-10 MG Tab PO PRN (10:30)
[2021-10-25 14:28] VITALS: BP 124/58; PULSE 94
== END 2021-10-25 15:45 | disposition home or self-care (01) | DRG 663 ==
LOC: MW.ED 14:32 → MW.MS 19:16
PROVIDERS: ADMIT Student in an Organized Health Care Education/Training Program; ATTEND Student in an Organized Health Care Education/Training Program
PROC: 30233N1 Transfusion of Nonautologous Red Blood Cells into Peripheral Vein, Percutaneous Approach (ICD-10-PCS; principal; 2021-10-22)
DX: D64.9 Anemia, unspecified (principal); J96.01 Acute respiratory failure with hypoxia; K92.2 Gastrointestinal hemorrhage, unspecified; J44.9 Chronic obstructive pulmonary disease, unspecified; I48.91 Unspecified atrial fibrillation; I50.32 Chronic diastolic (congestive) heart failure; Z79.4 Long term (current) use of insulin; E03.9 Hypothyroidism, unspecified; I27.20 Pulmonary hypertension, unspecified; E11.22 Type 2 diabetes mellitus with diabetic chronic kidney disease; E78.5 Hyperlipidemia, unspecified; Z96.653 Presence of artificial knee joint, bilateral; Z96.698 Presence of other orthopedic joint implants; I13.0 Hypertensive heart and chronic kidney disease with heart failure and stage 1 through stage 4 chronic kidney disease, or unspecified chronic kidney disease; N18.9 Chronic kidney disease, unspecified; Z20.822 Contact with and (suspected) exposure to COVID-19; Z79.899 Other long term (current) drug therapy; Z98.42 Cataract extraction status, left eye; Z98.41 Cataract extraction status, right eye; Z97.3 Presence of spectacles and contact lenses; Z97.2 Presence of dental prosthetic device (complete) (partial); Z86.79 Personal history of other diseases of the circulatory system; Z87.19 Personal history of other diseases of the digestive system; Z87.81 Personal history of (healed) traumatic fracture; Z90.89 Acquired absence of other organs; Z98.890 Other specified postprocedural states; Z90.49 Acquired absence of other specified parts of digestive tract; Z90.710 Acquired absence of both cervix and uterus; Z90.722 Acquired absence of ovaries, bilateral; Z90.13 Acquired absence of bilateral breasts and nipples
CPT/HCPCS: 0240U; 36415; 36430; 71045; 71045-26; 736202650; 73620-50; 80048; 80053; 82947; 83540; 83735; 83880; 84100; 84484; 84550; 85025; 86850; 86900; 86901; 86920; 93005; 96374; 99285-25; A9270-GY; C9113; J1940; J2060; J3475; J7620-GY; P9016

== ENCOUNTER 2021-11-24 06:33 | Day surgery (SDC) | payer MEDICARE, BC ==
[2021-11-24] MEDS ORDERED: Propofol 200 MG/20 ML SDV ONE ×2 (07:17→07:19)
[2021-11-24] MEDS ORDERED: Lactated Ringers 1,000 ML IV SCH (08:45)
[2021-11-24 10:28] VITALS: BP 125/58; PULSE 80
== END 2021-11-24 09:35 | disposition home or self-care (01) ==
LOC: MW.SDS 06:33
PROVIDERS: ATTEND Surgery
DX: K57.30 Diverticulosis of large intestine without perforation or abscess without bleeding (principal); K21.00 Gastro-esophageal reflux disease with esophagitis, without bleeding; K29.50 Unspecified chronic gastritis without bleeding; D64.9 Anemia, unspecified; I48.91 Unspecified atrial fibrillation; N18.9 Chronic kidney disease, unspecified; J44.9 Chronic obstructive pulmonary disease, unspecified; I12.9 Hypertensive chronic kidney disease with stage 1 through stage 4 chronic kidney disease, or unspecified chronic kidney disease; E78.00 Pure hypercholesterolemia, unspecified; E03.9 Hypothyroidism, unspecified; E11.9 Type 2 diabetes mellitus without complications; E55.9 Vitamin D deficiency, unspecified; Z88.8 Allergy status to other drugs, medicaments and biological substances; Z79.899 Other long term (current) drug therapy; Z79.890 Hormone replacement therapy; Z98.890 Other specified postprocedural states; Z87.891 Personal history of nicotine dependence
CPT/HCPCS: 43239; 45378; 82947; 88305; 88342; J2704; J7120; 00813; 99100

== ENCOUNTER 2023-10-04 13:07 | Inpatient (IN) | payer BC, MEDICARE ==
[2023-10-04] MEDS ORDERED: Sodium Chloride 0.9% 10 ML Syringe FLUSH PRN (13:32)
[2023-10-04] MEDS ORDERED: Sodium Chloride 0.9% 2.5 ML Syringe FLUSH PRN (13:32)
[2023-10-04 14:21] LABS: BASOPHILS ABSOLUTE AUTO 0.03 K/uL (0.00-0.20); BASOPHILS PERCENT AUTO 0.4 % (0.0-1.0); EOSINOPHILS ABSOLUTE AUTO 0.08 K/uL (0.00-0.45); EOSINOPHILS PERCENT AUTO 1.1 % (0.0-6.0); HEMATOCRIT 31.1 % (37.0-47.0); HEMOGLOBIN 10.4 g/dL (12.0-16.0); IMMATURE GRAN ABSOLUTE AUTO 0.02 K/uL (0.00-0.05); IMMATURE GRAN PERCENT AUTO 0.3 % (0.0-0.4); LYMPHOCYTES ABSOLUTE AUTO 1.27 K/uL (1.00-4.80); LYMPHOCYTES PERCENT AUTO 17.6 % (24.0-44.0); MEAN CORPUSCULAR HEMOGLOBIN 29.1 pg (28.0-32.0); MEAN CORPUSCULAR HGB CONC 33.4 g/dL (32.0-36.0); MEAN CORPUSCULAR VOLUME 86.9 fL (83.0-99.0); MEAN PLATELET VOLUME 9.9 fL (9.4-12.3); MONOCYTES ABSOLUTE AUTO 0.76 K/uL (0.00-0.80); MONOCYTES PERCENT AUTO 10.5 % (0.0-8.0); NEUTROPHILS ABSOLUTE AUTO 5.05 K/uL (1.80-7.70); NEUTROPHILS PERCENT AUTO 70.1 % (41.0-71.0); PLATELET COUNT,PLT 396 K/uL (150-400); RED BLOOD CELL COUNT 3.58 M/uL (4.10-5.30); WHITE BLOOD CELL COUNT,WBC 7.21 K/uL (3.9-11.3)
[2023-10-04 14:41] LABS: CORONAVIRUS COVID-19 NAA NEGATIVE (NEGATIVE); INFLUENZA A NAA NEGATIVE (NEGATIVE); INFLUENZA B NAA NEGATIVE (NEGATIVE); RESPIRATORY SYNCYTIAL VIR NAA NEGATIVE (NEGATIVE)
[2023-10-04 14:46] LABS: LACTIC ACID 0.7 mmol/L (0.4-2.0)
[2023-10-04 14:47] LABS: A/G RATIO 0.6 (0.9-1.6); ALBUMIN 2.9 g/dL (3.4-5.0); BILIRUBIN TOTAL 0.4 mg/dL (0.2-1.0); CALCIUM 9.5 mg/dL (8.5-10.1); CARBON DIOXIDE,CO2 23.3 mmol/L (21.0-32.0); CREATININE 1.4 mg/dL (0.6-1.0); EST CRCL DRUG DOSING (CG) 24.3 mL/min; POTASSIUM,K 4.4 mmol/L (3.5-5.1); PROTEIN TOTAL,TP 7.7 g/dL (6.4-8.2)
[2023-10-04] MEDS ORDERED: Furosemide 40 MG/4 ML VIAL IVPUSH ONE (15:28)
[2023-10-04] MEDS ORDERED: Acetaminophen 325 MG Tab PO PRN (16:34)
[2023-10-04] MEDS ORDERED: Polyethylene Glycol 3350 Powder 17 GM Packet PO PRN (16:34)
[2023-10-04] MEDS ORDERED: Albuterol/Ipratropium 3.0-0.5 MG/3 ML Neb Soln NEB PRN (16:34)
[2023-10-04] MEDS ORDERED: Ondansetron 4 MG/2 ML SDV IVPUSH PRN (16:34)
[2023-10-04] MEDS ORDERED: Glucagon,Human Recombinant 1 MG Vial IM PRN (16:39)
[2023-10-04] MEDS ORDERED: 50% Dextrose in Water 50 ML Syringe IVPUSH PRN (16:39)
[2023-10-04] MEDS: Insulin Aspart 100 Units/ML 3 ML Pen SUBCUT SCH (20:34)
[2023-10-04] MEDS: amLODIPine 2.5 MG Tab PO SCH (20:36)
[2023-10-04] MEDS: Doxazosin 4 MG Tab PO SCH (20:36)
[2023-10-04] MEDS: Apixaban 5 MG Tab PO SCH (20:36)
[2023-10-04] MEDS ORDERED: Furosemide 20 MG/2 ML VIAL IVPUSH ONE (21:00)
[2023-10-05] MEDS: Insulin Aspart 100 Units/ML 3 ML Pen SUBCUT SCH ×3 (07:23→17:05)
[2023-10-05] MEDS ORDERED: Furosemide 40 MG/4 ML VIAL IVPUSH SCH (09:00)
[2023-10-05] MEDS: Apixaban 5 MG Tab PO SCH ×2 (09:10→20:10)
[2023-10-05] MEDS: amLODIPine 5 MG Tab PO SCH (09:11)
[2023-10-05 11:44] LABS: BASOPHILS ABSOLUTE AUTO 0.04 K/uL (0.00-0.20); BASOPHILS PERCENT AUTO 0.6 % (0.0-1.0); EOSINOPHILS PERCENT AUTO 1.4 % (0.0-6.0); HEMATOCRIT 32.9 % (37.0-47.0); HEMOGLOBIN 10.7 g/dL (12.0-16.0); IMMATURE GRAN ABSOLUTE AUTO 0.03 K/uL (0.00-0.05); IMMATURE GRAN PERCENT AUTO 0.4 % (0.0-0.4); LYMPHOCYTES ABSOLUTE AUTO 0.96 K/uL (1.00-4.80); LYMPHOCYTES PERCENT AUTO 13.4 % (24.0-44.0); MEAN CORPUSCULAR HEMOGLOBIN 28.8 pg (28.0-32.0); MEAN CORPUSCULAR HGB CONC 32.5 g/dL (32.0-36.0); MEAN CORPUSCULAR VOLUME 88.4 fL (83.0-99.0); MEAN PLATELET VOLUME 11.4 fL (9.4-12.3); MONOCYTES ABSOLUTE AUTO 0.68 K/uL (0.00-0.80); MONOCYTES PERCENT AUTO 9.5 % (0.0-8.0); NEUTROPHILS ABSOLUTE AUTO 5.36 K/uL (1.80-7.70); NEUTROPHILS PERCENT AUTO 74.7 % (41.0-71.0); PLATELET COUNT,PLT 274 K/uL (150-400); RED BLOOD CELL COUNT 3.72 M/uL (4.10-5.30); WHITE BLOOD CELL COUNT,WBC 7.17 K/uL (3.9-11.3)
[2023-10-05 12:02] LABS: A/G RATIO 0.7 (0.9-1.6); ALBUMIN 2.8 g/dL (3.4-5.0); BILIRUBIN TOTAL 0.3 mg/dL (0.2-1.0); CALCIUM 8.8 mg/dL (8.5-10.1); CARBON DIOXIDE,CO2 24.7 mmol/L (21.0-32.0); CREATININE 1.5 mg/dL (0.6-1.0); EST CRCL DRUG DOSING (CG) 22.68 mL/min; POTASSIUM,K 4.1 mmol/L (3.5-5.1)
[2023-10-05] MEDS: Furosemide 40 MG/4 ML VIAL IVPUSH SCH ×2 (16:50→18:12)
[2023-10-05] MEDS: Doxazosin 4 MG Tab PO SCH (20:09)
[2023-10-05] MEDS: amLODIPine 2.5 MG Tab PO SCH (20:10)
[2023-10-06 05:54] LABS: BASOPHILS ABSOLUTE AUTO 0.04 K/uL (0.00-0.20); BASOPHILS PERCENT AUTO 0.6 % (0.0-1.0); EOSINOPHILS PERCENT AUTO 2.9 % (0.0-6.0); HEMATOCRIT 32.6 % (37.0-47.0); HEMOGLOBIN 10.5 g/dL (12.0-16.0); IMMATURE GRAN ABSOLUTE AUTO 0.02 K/uL (0.00-0.05); IMMATURE GRAN PERCENT AUTO 0.3 % (0.0-0.4); LYMPHOCYTES ABSOLUTE AUTO 1.61 K/uL (1.00-4.80); LYMPHOCYTES PERCENT AUTO 23.7 % (24.0-44.0); MEAN CORPUSCULAR HEMOGLOBIN 28.5 pg (28.0-32.0); MEAN CORPUSCULAR HGB CONC 32.2 g/dL (32.0-36.0); MEAN CORPUSCULAR VOLUME 88.6 fL (83.0-99.0); MEAN PLATELET VOLUME 10.2 fL (9.4-12.3); MONOCYTES ABSOLUTE AUTO 0.76 K/uL (0.00-0.80); MONOCYTES PERCENT AUTO 11.2 % (0.0-8.0); NEUTROPHILS ABSOLUTE AUTO 4.15 K/uL (1.80-7.70); NEUTROPHILS PERCENT AUTO 61.3 % (41.0-71.0); PLATELET COUNT,PLT 407 K/uL (150-400); RED BLOOD CELL COUNT 3.68 M/uL (4.10-5.30); WHITE BLOOD CELL COUNT,WBC 6.78 K/uL (3.9-11.3)
[2023-10-06] MEDS ORDERED: Furosemide 40 MG/4 ML VIAL IVPUSH SCH (07:15)
[2023-10-06] MEDS ORDERED: Pantoprazole 40 MG Tab.CR PO SCH (07:30)
[2023-10-06] MEDS ORDERED: Magnesium Sulfate/Water 2 GM in Premix Bag 1 BAG IV ONE (08:59)
[2023-10-06] MEDS ORDERED: hydrALAZINE 25 MG Tab PO SCH (09:00)
[2023-10-06] MEDS ORDERED: Magnesium Oxide 400 MG Tab PO ONE (09:02)
[2023-10-06] MEDS: Insulin Aspart 100 Units/ML 3 ML Pen SUBCUT SCH (09:55)
[2023-10-06 10:00] VITALS: BP 146/71
[2023-10-06] MEDS: Apixaban 5 MG Tab PO SCH (10:00)
[2023-10-06] MEDS: amLODIPine 5 MG Tab PO SCH (10:00)
[2023-10-06 10:04] VITALS: PULSE 79
== END 2023-10-06 10:15 | disposition home or self-care (01) | DRG 194 ==
LOC: MW.ED 13:07 → MW.MS 15:54
PROVIDERS: ADMIT Family Medicine; ATTEND Family Medicine
DX: I13.0 Hypertensive heart and chronic kidney disease with heart failure and stage 1 through stage 4 chronic kidney disease, or unspecified chronic kidney disease (principal); J96.01 Acute respiratory failure with hypoxia; I50.33 Acute on chronic diastolic (congestive) heart failure; N18.9 Chronic kidney disease, unspecified; E11.22 Type 2 diabetes mellitus with diabetic chronic kidney disease; I48.91 Unspecified atrial fibrillation; E78.00 Pure hypercholesterolemia, unspecified; I25.10 Atherosclerotic heart disease of native coronary artery without angina pectoris; J44.9 Chronic obstructive pulmonary disease, unspecified; K21.9 Gastro-esophageal reflux disease without esophagitis; M19.90 Unspecified osteoarthritis, unspecified site; E03.9 Hypothyroidism, unspecified; D63.1 Anemia in chronic kidney disease; Z91.040 Latex allergy status; Z88.8 Allergy status to other drugs, medicaments and biological substances; Z79.01 Long term (current) use of anticoagulants; Z79.890 Hormone replacement therapy; Z79.899 Other long term (current) drug therapy; Z97.3 Presence of spectacles and contact lenses; Z98.49 Cataract extraction status, unspecified eye; Z90.710 Acquired absence of both cervix and uterus; Z90.721 Acquired absence of ovaries, unilateral; Z96.659 Presence of unspecified artificial knee joint; Z90.49 Acquired absence of other specified parts of digestive tract; Z98.890 Other specified postprocedural states; Z99.81 Dependence on supplemental oxygen; Z11.52 Encounter for screening for COVID-19
CPT/HCPCS: 0241U; 36415; 71046; 71046-26; 80053; 82947; 83605; 83735; 83880; 84145; 84484; 85025; 93005; 93010; 99285; A9270-GY; J1940; J3490

== ENCOUNTER 2025-01-04 12:44 | Inpatient (IN) | payer BC, MEDICARE ==
[2025-01-04] MEDS: Albuterol/Ipratropium 3.0-0.5 MG/3 ML Neb Soln NEB ONE (13:28)
[2025-01-04] MEDS: Furosemide 40 MG/4 ML VIAL IVPUSH ONE ×2 (13:28→16:59)
[2025-01-04 13:38] LABS: BASOPHILS ABSOLUTE AUTO 0.02 K/uL (0.00-0.20); BASOPHILS PERCENT AUTO 0.2 % (0.0-1.0); EOSINOPHILS ABSOLUTE AUTO 0.03 K/uL (0.00-0.45); EOSINOPHILS PERCENT AUTO 0.4 % (0.0-6.0); HEMATOCRIT 33.3 % (37.0-47.0); HEMOGLOBIN 11.1 g/dL (12.0-16.0); IMMATURE GRAN ABSOLUTE AUTO 0.01 K/uL (0.00-0.05); IMMATURE GRAN PERCENT AUTO 0.1 % (0.0-0.4); LYMPHOCYTES ABSOLUTE AUTO 1.09 K/uL (1.00-4.80); LYMPHOCYTES PERCENT AUTO 13.5 % (24.0-44.0); MEAN CORPUSCULAR HEMOGLOBIN 28.6 pg (28.0-32.0); MEAN CORPUSCULAR HGB CONC 33.3 g/dL (32.0-36.0); MEAN CORPUSCULAR VOLUME 85.8 fL (83.0-99.0); MEAN PLATELET VOLUME 10.7 fL (9.4-12.3); MONOCYTES ABSOLUTE AUTO 0.82 K/uL (0.00-0.80); MONOCYTES PERCENT AUTO 10.1 % (0.0-8.0); NEUTROPHILS ABSOLUTE AUTO 6.11 K/uL (1.80-7.70); NEUTROPHILS PERCENT AUTO 75.7 % (41.0-71.0); PLATELET COUNT,PLT 259 K/uL (150-400); RED BLOOD CELL COUNT 3.88 M/uL (4.10-5.30); WHITE BLOOD CELL COUNT,WBC 8.08 K/uL (3.9-11.3)
[2025-01-04 14:06] LABS: CALCIUM 9.3 mg/dL (8.5-10.1); CARBON DIOXIDE,CO2 24.3 mmol/L (21.0-32.0); CREATININE 1.4 mg/dL (0.6-1.0); EST CRCL DRUG DOSING (CG) 23.86 mL/min; MAGNESIUM 1.7 mg/dL (1.8-2.4); POTASSIUM,K 3.7 mmol/L (3.5-5.1)
[2025-01-04] MEDS ORDERED: Ondansetron 4 MG/2 ML SDV IVPUSH PRN (15:36)
[2025-01-04] MEDS ORDERED: Docusate Sodium 100 MG Cap PO PRN (15:36)
[2025-01-04] MEDS ORDERED: Acetaminophen 325 MG Tab PO PRN (15:36)
[2025-01-04] MEDS ORDERED: Polyethylene Glycol 3350 Powder 17 GM Packet PO PRN (15:36)
[2025-01-04] MEDS ORDERED: Ondansetron 4 MG Tab.DIS PO PRN (15:36)
[2025-01-04] MEDS: Magnesium Oxide 400 MG Tab PO ONE (16:58)
[2025-01-04] MEDS: Pantoprazole 40 MG Tab.CR PO SCH (16:59)
[2025-01-04] MEDS: Doxazosin 4 MG Tab PO SCH (20:11)
[2025-01-04] MEDS: Apixaban 5 MG Tab PO SCH (20:11)
[2025-01-04] MEDS: atorvaSTATin 20 MG Tab PO SCH (20:11)
[2025-01-04] MEDS: Melatonin 3 MG Tab PO PRN (21:08)
[2025-01-05] MEDS: Albuterol/Ipratropium 3.0-0.5 MG/3 ML Neb Soln NEB PRN (01:12)
[2025-01-05 05:46] LABS: BASOPHILS ABSOLUTE AUTO 0.03 K/uL (0.00-0.20); BASOPHILS PERCENT AUTO 0.5 % (0.0-1.0); EOSINOPHILS PERCENT AUTO 1.7 % (0.0-6.0); HEMATOCRIT 30.8 % (37.0-47.0); IMMATURE GRAN ABSOLUTE AUTO 0.01 K/uL (0.00-0.05); IMMATURE GRAN PERCENT AUTO 0.2 % (0.0-0.4); LYMPHOCYTES ABSOLUTE AUTO 1.14 K/uL (1.00-4.80); LYMPHOCYTES PERCENT AUTO 18.9 % (24.0-44.0); MEAN CORPUSCULAR HEMOGLOBIN 28.1 pg (28.0-32.0); MEAN CORPUSCULAR HGB CONC 32.5 g/dL (32.0-36.0); MEAN CORPUSCULAR VOLUME 86.5 fL (83.0-99.0); MEAN PLATELET VOLUME 11.5 fL (9.4-12.3); MONOCYTES ABSOLUTE AUTO 0.83 K/uL (0.00-0.80); MONOCYTES PERCENT AUTO 13.7 % (0.0-8.0); NEUTROPHILS ABSOLUTE AUTO 3.93 K/uL (1.80-7.70); PLATELET COUNT,PLT 257 K/uL (150-400); RED BLOOD CELL COUNT 3.56 M/uL (4.10-5.30); WHITE BLOOD CELL COUNT,WBC 6.04 K/uL (3.9-11.3)
[2025-01-05 06:12] LABS: A/G RATIO 0.8 (0.9-1.6); ALBUMIN 2.8 g/dL (3.4-5.0); BILIRUBIN TOTAL 0.6 mg/dL (0.2-1.0); CREATININE 1.5 mg/dL (0.6-1.0); EST CRCL DRUG DOSING (CG) 23.25 mL/min; MAGNESIUM 1.8 mg/dL (1.8-2.4); POTASSIUM,K 3.4 mmol/L (3.5-5.1); PROTEIN TOTAL,TP 6.3 g/dL (6.4-8.2)
[2025-01-05] MEDS: Levothyroxine 100 MCG Tab PO SCH (06:50)
[2025-01-05] MEDS: hydrALAZINE 25 MG Tab PO SCH (09:42)
[2025-01-05] MEDS: Potassium Chloride 20 MEQ Tab.ER PO ONE ×2 (09:42→12:11)
[2025-01-05] MEDS: Cholecalciferol (Vitamin D3) 25 MCG Tab PO SCH (09:42)
[2025-01-05] MEDS: Iron Polysaccharides Complex 150 MG Cap PO SCH (09:43)
[2025-01-05] MEDS: Furosemide 40 MG/4 ML VIAL IVPUSH SCH (09:43)
[2025-01-05] MEDS ORDERED: Levothyroxine 100 MCG Tab PO ONE (10:00)
[2025-01-05] MEDS: Magnesium Oxide 400 MG Tab PO ONE (12:12)
[2025-01-05] MEDS: Levothyroxine 100 MCG Tab PO ONE (16:30)
[2025-01-06 05:53] LABS: BASOPHILS ABSOLUTE AUTO 0.02 K/uL (0.00-0.20); BASOPHILS PERCENT AUTO 0.3 % (0.0-1.0); EOSINOPHILS ABSOLUTE AUTO 0.14 K/uL (0.00-0.45); HEMATOCRIT 31.3 % (37.0-47.0); HEMOGLOBIN 10.3 g/dL (12.0-16.0); IMMATURE GRAN ABSOLUTE AUTO 0.02 K/uL (0.00-0.05); IMMATURE GRAN PERCENT AUTO 0.3 % (0.0-0.4); LYMPHOCYTES ABSOLUTE AUTO 1.21 K/uL (1.00-4.80); LYMPHOCYTES PERCENT AUTO 17.3 % (24.0-44.0); MEAN CORPUSCULAR HEMOGLOBIN 28.5 pg (28.0-32.0); MEAN CORPUSCULAR HGB CONC 32.9 g/dL (32.0-36.0); MEAN CORPUSCULAR VOLUME 86.5 fL (83.0-99.0); MEAN PLATELET VOLUME 11.6 fL (9.4-12.3); MONOCYTES ABSOLUTE AUTO 0.88 K/uL (0.00-0.80); MONOCYTES PERCENT AUTO 12.6 % (0.0-8.0); NEUTROPHILS ABSOLUTE AUTO 4.71 K/uL (1.80-7.70); NEUTROPHILS PERCENT AUTO 67.5 % (41.0-71.0); PLATELET COUNT,PLT 267 K/uL (150-400); RED BLOOD CELL COUNT 3.62 M/uL (4.10-5.30); WHITE BLOOD CELL COUNT,WBC 6.98 K/uL (3.9-11.3)
[2025-01-06 06:20] LABS: A/G RATIO 0.8 (0.9-1.6); ALBUMIN 2.9 g/dL (3.4-5.0); BILIRUBIN TOTAL 0.4 mg/dL (0.2-1.0); CALCIUM 9.3 mg/dL (8.5-10.1); CARBON DIOXIDE,CO2 28.4 mmol/L (21.0-32.0); CREATININE 1.5 mg/dL (0.6-1.0); EST CRCL DRUG DOSING (CG) 23.25 mL/min; MAGNESIUM 1.9 mg/dL (1.8-2.4); POTASSIUM,K 3.8 mmol/L (3.5-5.1); PROTEIN TOTAL,TP 6.6 g/dL (6.4-8.2)
[2025-01-06] MEDS: Fluticasone NASAL Spray 16 GM Bottle NASBOTH SCH (10:07)
[2025-01-06 17:56] VITALS: BP 173/78
[2025-01-06 19:55] VITALS: PULSE 66
[2025-01-06] MEDS ORDERED: FELODIPINE 2.5 MG PO SCH (21:00)
== END 2025-01-06 19:55 | disposition home or self-care (01) | DRG 194 ==
LOC: MW.ED 12:44 → MW.MS 14:40
PROVIDERS: ADMIT Family Medicine; ATTEND Family Medicine
DX: I13.0 Hypertensive heart and chronic kidney disease with heart failure and stage 1 through stage 4 chronic kidney disease, or unspecified chronic kidney disease (principal); J96.01 Acute respiratory failure with hypoxia; I50.33 Acute on chronic diastolic (congestive) heart failure; Z66 Do not resuscitate; I27.20 Pulmonary hypertension, unspecified; E11.22 Type 2 diabetes mellitus with diabetic chronic kidney disease; E87.70 Fluid overload, unspecified; E78.00 Pure hypercholesterolemia, unspecified; I48.91 Unspecified atrial fibrillation; J44.9 Chronic obstructive pulmonary disease, unspecified; F10.90 Alcohol use, unspecified, uncomplicated; F15.90 Other stimulant use, unspecified, uncomplicated; F12.90 Cannabis use, unspecified, uncomplicated; H26.9 Unspecified cataract; I25.10 Atherosclerotic heart disease of native coronary artery without angina pectoris; K21.9 Gastro-esophageal reflux disease without esophagitis; M19.90 Unspecified osteoarthritis, unspecified site; E03.9 Hypothyroidism, unspecified; Z96.659 Presence of unspecified artificial knee joint; N18.32 Chronic kidney disease, stage 3b; E83.42 Hypomagnesemia; D72.829 Elevated white blood cell count, unspecified; G47.00 Insomnia, unspecified; R33.9 Retention of urine, unspecified; R63.4 Abnormal weight loss; Z68.31 Body mass index [BMI] 31.0-31.9, adult; Z88.8 Allergy status to other drugs, medicaments and biological substances; Z90.13 Acquired absence of bilateral breasts and nipples; Z98.890 Other specified postprocedural states; Z90.89 Acquired absence of other organs; Z91.048 Other nonmedicinal substance allergy status; Z79.02 Long term (current) use of antithrombotics/antiplatelets; Z98.49 Cataract extraction status, unspecified eye; Z90.49 Acquired absence of other specified parts of digestive tract; Z90.710 Acquired absence of both cervix and uterus; Z87.81 Personal history of (healed) traumatic fracture; Z79.01 Long term (current) use of anticoagulants; I25.2 Old myocardial infarction; Z79.899 Other long term (current) drug therapy
CPT/HCPCS: 36415; 71045; 71045-26; 80048; 80053; 82947; 83735; 83880; 84100; 84484; 85025; 87428-QW; 93005; 93306; 96374; 99284; 99285-25; A9270-GY; J1940

== ENCOUNTER 2025-09-04 16:34 | Emergency (ER) | payer BC, MEDICARE ==
[2025-09-04 18:29] LABS: BASOPHILS ABSOLUTE AUTO 0.03 K/uL (0.00-0.20); BASOPHILS PERCENT AUTO 0.5 % (0.0-1.0); EOSINOPHILS ABSOLUTE AUTO 0.06 K/uL (0.00-0.45); EOSINOPHILS PERCENT AUTO 1.1 % (0.0-6.0); IMMATURE GRAN ABSOLUTE AUTO 0.01 K/uL (0.00-0.05); IMMATURE GRAN PERCENT AUTO 0.2 % (0.0-0.4); LYMPHOCYTES ABSOLUTE AUTO 1.21 K/uL (1.00-4.80); LYMPHOCYTES PERCENT AUTO 21.6 % (24.0-44.0); MEAN PLATELET VOLUME 10.9 fL (9.4-12.3); MONOCYTES ABSOLUTE AUTO 0.62 K/uL (0.00-0.80); MONOCYTES PERCENT AUTO 11.1 % (0.0-8.0); NEUTROPHILS ABSOLUTE AUTO 3.66 K/uL (1.80-7.70); NEUTROPHILS PERCENT AUTO 65.5 % (41.0-71.0); NRBC ABSOLUTE 0.00 K/uL (0.00-0.02); NRBC PERCENT 0.0 /100WBC (0.0-0.2); PLATELET COUNT,PLT 282 K/uL (150-400); RED BLOOD CELL COUNT 3.49 M/uL (4.10-5.30); WHITE BLOOD CELL COUNT,WBC 5.59 K/uL (3.9-11.3)
[2025-09-04 19:13] LABS: BLOOD UREA NITROGEN,BUN 28.0 mg/dL (7.0-18.0); CARBON DIOXIDE,CO2 27.1 mmol/L (21.0-32.0); CHLORIDE,CL 107.0 mmol/L (98-107); CREATININE 1.7 mg/dL (0.6-1.0); EST CRCL DRUG DOSING (CG) 19.29 mL/min; GLUCOSE RANDOM 94.0 mg/dL (74-106); POTASSIUM,K 4.3 mmol/L (3.5-5.1); PRO B-TYPE NATRIUR PEPT,BNPPRO 3896.0 pg/mL (0-450); SODIUM,NA 140.0 mmol/L (136-145)
[2025-09-04 19:14] LABS: ESTIMATED GFR 29.0 mL/min (>60)
[2025-09-04 19:33] VITALS: BP 186/80; PULSE 63
== END 2025-09-04 19:33 | disposition home or self-care (01) ==
LOC: MW.ED 16:34
DX: R60.0 Localized edema (principal); I48.91 Unspecified atrial fibrillation; I13.0 Hypertensive heart and chronic kidney disease with heart failure and stage 1 through stage 4 chronic kidney disease, or unspecified chronic kidney disease; E11.22 Type 2 diabetes mellitus with diabetic chronic kidney disease; N18.9 Chronic kidney disease, unspecified; I50.9 Heart failure, unspecified; E78.00 Pure hypercholesterolemia, unspecified; J44.9 Chronic obstructive pulmonary disease, unspecified; K21.9 Gastro-esophageal reflux disease without esophagitis; E03.9 Hypothyroidism, unspecified; Z88.8 Allergy status to other drugs, medicaments and biological substances; Z91.048 Other nonmedicinal substance allergy status; Z79.899 Other long term (current) drug therapy; Z79.01 Long term (current) use of anticoagulants; Z90.49 Acquired absence of other specified parts of digestive tract; Z90.89 Acquired absence of other organs
CPT/HCPCS: 36415; 80048; 83880; 85025; 99283; 99284